=== PATIENT | female | born 1950 | race Caucasian/White ===

== ENCOUNTER 2019-09-20 10:32 | Inpatient (IN) | payer OTHER ==
[2019-09-20 11:23] LABS: Absolute Lymphocytes (CBC) 0.4 K/uL (0.7-4.9); Basophils % 0.4 % (0-1.3); Hematocrit 38.1 % (36.0-45.0); Lymphocytes % 13.6 % (15.3-44.8); MPV 9.9 fL (7.6-11.3); RBC Red Blood Cell Count 3.53 M/uL (3.86-4.86)
[2019-09-20 11:24] LABS: Protime INR 1.05
--- NOTE | 2019-09-20 11:33 | RAD REPORT ---
EXAM DESCRIPTION: CT - Head Brain Wo Cont - 09/20/2019 11:17 am CLINICAL HISTORY: tremor;Weakness COMPARISON: None TECHNIQUE: Computed axial tomography of the head was obtained. IV contrast was not requested. All CT scans are performed using dose optimization technique as appropriate and may include automated exposure control or mA/KV adjustment according to patient size. FINDINGS: An intracranial bleed is not seen . The ventricles are normal in caliber. No extra-axial fluid collection is noted. Fluid within the sinuses/ mastoids is not seen. IMPRESSION: No acute intracranial abnormality is seen. If patient's symptoms persist MRI of the bra in would be recommended.
[2019-09-20 11:46] LABS: ALT/SGPT 19 U/L (12-78); AST/SGOT 24 U/L (15-37); Albumin 3.1 g/dL (3.4-5.0); Alkaline Phosphatase 150 U/L (45-117); BUN Blood Urea Nitrogen 79 mg/dL (7-18); Bicarbonate 26 mmol/L (21-32); Bilirubin Direct 0.5 mg/dL (0-0.2); Glucose Level 199 mg/dL (74-106); Magnesium 2.7 mg/dL (1.8-2.4); NT PRO-BNP 1483 pg/mL (<125); Potassium 5.3 mmol/L (3.5-5.1); Protein, Total 7.7 g/dL (6.4-8.2); Sodium Level 142 mmol/L (136-145); T3 Free 0.97 pg/mL (2.18-3.98); Troponin (Emerg Dept Use Only) < 0.02 ng/mL (0.0-0.045)
--- NOTE | 2019-09-20 11:55 | RAD REPORT ---
EXAM DESCRIPTION: RAD - Chest Single View - 09/20/2019 11:29 am CLINICAL HISTORY: Weakness, shortness of breath COMPARISON: October 2017 TECHNIQUE: AP portable chest image was obtained 1121 hours . FINDINGS: Lungs are clear. Heart and vasculature are normal. No measurable pleural effusion and no p neumothorax. No acute bone finding. Degenerative change and old fracture remodeling changes to the pr oximal right humerus noted. No acute aortic findings suspected. IMPRESSION: No acute cardiopulmonary process. No suspicious change comparison.
[2019-09-20] MEDS ORDERED: NA CHLORIDE 0.9% 1,000 ML ONE (11:57)
[2019-09-20 12:21] LABS: Urine Blood TRACE (NEG); Urine Glucose NEGATIVE (NEG); Urine Protein NEGATIVE (NEG); Urine Specific Gravity 1.015 (1.005-1.030); Urine pH 5.5 (5.0-7.0)
--- NOTE | 2019-09-20 12:46 | EKG ---
Test Date: 2019-09-20 Test Time: 10:40:25 Bufferer: NAHEED MEASUREMENT RESULTS: Intervals: Rate: 85 TX: 156 QRSD: 82 QT: 368 QTc: 437 [place]: P: 27 TX: 156 QRS: -12 T: 107 INTERPRETIVE STATEMENTS: Normal sinus rhythm Cannot rule out Anterior infarct, age undetermined Abnormal ECG Compared to ECG 11/01/2017 14:07:46 No significant changes Electronically Signed On 09-20-19 12:45:37 WIRE REPAIRER by Torin Lizama
[2019-09-20 12:47] LABS: Anisocytosis 1+; Blood Morphology Comment NOT SEEN (NOT SEEN); Platelet Estimate DECR; Urine White Blood Cell Casts OK
[2019-09-20 12:48] LABS: Macrocytosis 1+
[2019-09-20] MEDS ORDERED: ALBUTEROL 2.5 MG/3 ML NEB SOL ONE (12:51)
[2019-09-20] MEDS ORDERED: INSULIN -REGULAR HUMAN 50 UNIT/0.5 ML ML ONE (12:51)
[2019-09-20] MEDS ORDERED: SOD POLYSTYREN SUL 15 GM/60 ML UCUP ONE (12:51)
[2019-09-20] MEDS ORDERED: D50W 25 GM/50 ML SYRINGE/VIAL IV ONE (12:52)
[2019-09-20 14:07] LABS: Urine Bacteria 20-50 /HPF (<20); Urine Culture Reflex Order REFLEXED; Urine RBC <5 /HPF (NONE SEEN)
[2019-09-20] MEDS ORDERED: CEFTRIAXONE/SWI 1gm 1 GM/10 ML SYR ONE (14:21)
[2019-09-20] MEDS ORDERED: NA CHLORIDE 0.9% 500 ML ONE (14:37)
--- NOTE | 2019-09-20 14:56 | ER ---
Nurse's Notes [facility] Name: Sofie Kinney Age: 68 yrs Sex: Female : 1950 Arrival Date: 09/20/2019 Time: 10:36 Bed 14 Private MD: Diagnosis: Urinary tract infection, site not specified;Hypotension;Weakness-general Presentation: 09/20 10:37 Presenting complaint: EMS states: general body weakness for couple weeks now but has ca1 been progressively worse. About a month ago pt is able to walk around. Pt also has persistent tremors on both upper extremities. Tremors started over a week ago but would come and go. For the last 2 days it has gotten worse. Pt's has recently been diagnosed with liver Cirrhosis and swelling on both lower and upper extremities are normal according to the family and pt is taking diuretics for it. Pt also had a back surgery about 1.5 months ago for a compression injury. Transition of care: patient was not received from another setting of care. Onset of symptoms was September 20, 2019. Risk Assessment: Do you want to hurt yourself or someone else? Patient reports no desire to harm self or others. Initial Sepsis Screen: Does the patient meet any 2 criteria? No. Patient's initial sepsis screen is negative. Does the patient have a suspected source of infection? No. Patient's initial sepsis screen is negative. Care prior to arrival: Glucose check: 160. 10:37 Method Of Arrival: EMS: [facility] ca1 10:37 Acuity: ROBERT 3 ca1 Historical: - Allergies: 10:45 PENICILLINS; ca1 - PMHx: 10:45 Anemia; Hypertension; Thyroid problem; Diabetes - NIDDM; ca1 - PSHx: 10:45 Back Surgery; Knee Surgery (R); Hysterectomy; ca1 - Immunization history:: Adult Immunizations up to date. - Social history:: Smoking status: Patient/guardian denies using tobacco. - Ebola Screening: : Patient negative for fever greater than or equal to 101.5 degrees Fahrenheit, and additional compatible Ebola Virus Disease symptoms Patient denies exposure to infectious person Patient denies travel to an Ebola-affected area in the 21 days before illness onset No symptoms or risks identified at this time. Screenin:46 Abuse screen: Denies threats or abuse. Denies injuries from another. Nutritional ca1 screening: No deficits noted. Tuberculosis screening: No symptoms or risk factors identified. Fall Risk IV access (20 points). Ambulatory Aid- None/Bed Rest/Nurse Assist (0 pts). Gait- Impaired (20 pts.). Total Juarez Fall Scale indicates High Risk Score (45 or more points). Fall prevention measures have been instituted. Side Rails Up X 2 As available patient and family educated on Fall Prevention Program and Strategies. Assessment: 10:46 General: Appears in no apparent distress. uncomfortable, ill, obese, unkempt, Behavior ca1 is calm, cooperative, appropriate for age. General: Reports fatigue for >3 days. Pain: Denies pain. Neuro: Level of Consciousness is awake, alert, obeys commands, Oriented to person, place, time, situation, Appropriate for age Institute Scientist are equal bilaterally Moves all extremities. Speech is normal, Facial symmetry appears normal, Pupils are PERRLA, Intact. Cardiovascular: Heart tones S1 S2 present Capillary refill < 3 seconds Patient's skin is warm and dry. Rhythm is sinus rhythm. Respiratory: Airway is patent Respiratory effort is even, unlabored, Respiratory pattern is regular, symmetrical, Breath sounds are clear bilaterally. GI: Abdomen is round non-distended, Bowel sounds present X 4 quads. Abd is soft and non tender X 4 quads. : No deficits noted. No signs and/or symptoms were reported regarding the genitourinary system. EENT: No deficits noted. No signs and/or symptoms were reported regarding the EENT system. Derm: Skin is intact, is healthy with good turgor, Skin is pink, warm \T\ dry. Musculoskeletal: Circulation, motion, and sensation intact. Capillary refill < 3 seconds, Range of motion: intact in all extremities, Swelling present in right arm, left arm, right leg and left leg. 11:32 Reassessment: Patient appears in no apparent distress at this time. Patient and/or ca1 family updated on plan of care and expected duration. Pain level reassessed. Patient is alert, oriented x 3, equal unlabored respirations, skin warm/dry/pink. 11:51 Reassessment: BP lowered. Documented and notified provider. ca1 12:04 Reassessment: Daughter contact number is [phone]. Will leave for a while and be ca1 back right away. 12:31 Reassessment: Patient appears in no apparent distress at this time. No changes from ca1 previously documented assessment. Patient is alert, oriented x 3, equal unlabored respirations, skin warm/dry/pink. 13:25 Reassessment: Patient appears in no apparent distress at this time. Patient and/or ca1 family updated on plan of care and expected duration. Pain level reassessed. Patient is alert, oriented x 3, equal unlabored respirations, skin warm/dry/pink. 14:17 Reassessment: Patient appears in no apparent distress at this time. Patient and/or ca1 family updated on plan of care and expected duration. Pain level reassessed. Patient is alert, oriented x 3, equal unlabored respirations, skin warm/dry/pink. Still no BM. SONIA Penaloza at bedside to discuss test results and pt being admitted. 15:24 Reassessment: Patient appears in no apparent distress at this time. Patient and/or ca1 family updated on plan of care and expected duration. Pain level reassessed. Patient is alert, oriented x 3, equal unlabored respirations, skin warm/dry/pink. 16:28 Reassessment: Patient appears in no apparent distress at this time. Patient is alert, ca1 oriented x 3, equal unlabored respirations, skin warm/dry/pink. Orders and room assignment pending. 16:45 Reassessment: Dr. Mackenzie at bedside. [facility] 17:26 Reassessment: Patient appears in no apparent distress at this time. Patient and/or ca1 family updated on plan of care and expected duration. Pain level reassessed. Patient is alert, oriented x 3, equal unlabored respirations, skin warm/dry/pink. Dinner served. Pt tolerated well. 18:09 Reassessment: Called for report. CN said nurse will call back once settled with the ca1 other admission that she just got. 18:10 Reassessment: Patient appears in no apparent distress at this time. Patient is alert, ca1 oriented x 3, equal unlabored respirations, skin warm/dry/pink. 19:15 Reassessment: Patient appears in no apparent distress at this time. Patient and/or wh family updated on plan of care and expected duration. Pain level reassessed. Patient is alert, oriented x 3, equal unlabored respirations, skin warm/dry/pink. 19:41 Reassessment: Report called to SHARRI Longo. 19:50 Reassessment: Pt cleaned and linen changed. jb4 20:15 Reassessment: Pt cleaned and linen changed. jb4 20:23 Reassessment: Patient appears in no apparent distress at this time. Patient and/or jb4 family updated on plan of care and expected duration. Pain level reassessed. Patient is alert, oriented x 3, equal unlabored respirations, skin warm/dry/pink. Vital Signs: 10:45 BP 101 / 76; Pulse 88; Resp 18 S; Temp 98.1(O); Pulse Ox 99% on R/A; Weight 90.72 kg ca1 (R); Height 5 ft. 3 in. (160.02 cm) (R); Pain 0/10; 11:49 BP 78 / 35 RA; Pulse 80; Resp 15; Pulse Ox 100% on R/A; ca1 11:49 BP 63 / 35 LA; ca1 12:31 BP 111 / 62; Pulse 76; Resp 14 S; Pulse Ox 98% on R/A; ca1 13:25 BP 103 / 57; Pulse 82; Resp 14 S; Pulse Ox 100% on R/A; ca1 14:17 BP 93 / 57; Pulse 79; Resp 13; Pulse Ox 100% on R/A; ca1 15:24 BP 109 / 60; Pulse 73; Resp 16 S; Pulse Ox 100% on R/A; ca1 16:28 BP 97 / 54; Pulse 78; Resp 14 S; Pulse Ox 100% on R/A; ca1 17:26 BP 92 / 61; Pulse 92; Resp 20; Pulse Ox 98% on R/A; ca1 18:09 BP 96 / 77; Pulse 88; Resp 17 S; Pulse Ox 100% on R/A; ca1 19:15 BP 108 / 64; Pulse 80; Resp 13; Pulse Ox 95% on R/A; wh 20:00 BP 116 / 88; Pulse 83; Resp 16; Pulse Ox 99% on R/A; jb4 10:45 Body Mass Index 35.43 (90.72 kg, 160.02 cm) ca1 ED Course: 10:36 Patient arrived in ED. ca1 10:37 Tim Ortega PA is PHCP. cp 10:37 Chico Mina MD is Attending Physician. cp 10:43 Triage completed. ca1 10:45 Arm band placed on right wrist. EKG completed in triage. Results shown to MD. ca1 10:46 Patient has correct armband on for positive identification. Placed in gown. Bed in low ca1 position. Call light in reach. Side rails up X2. threat monitoring analyst on. Pulse ox on. NIBP on. Warm blanket given. 10:46 No provider procedures requiring assistance completed. ca1 10:59 Inserted saline lock: 22 gauge in right antecubital area, using aseptic technique. ca1 forearm, using aseptic technique. Blood collected. 10:59 Initial lab(s) drawn, by me, sent to lab. First set of blood cultures drawn by me. ca1 11:03 Pam Ferreira, RN is Primary Nurse. ca1 11:09 EKG done, by animal care technician. reviewed by Chico Mina MD. at1 11:17 CT Head Brain wo Cont In Process Unspecified. EDMS 11:[address] via stretcher. ca1 11:30 XRAY Chest (1 view) In Process Unspecified. EDMS 11:53 Straight cath inserted, using sterile technique, 16 Fr. Specimen obtained. 600cc. 5 11:54 Urine Microscopic Only Sent. 5 11:54 Urine collected: straight cath specimen, cloudy, Amount Returned: 600mL. 5 13:02 Second set of blood cultures drawn by lab staff. ca1 14:54 Ahsan Mackenzie is Hospitalizing Provider. cp 15:40 Patient admitted, IV remains in place. ca1 Administered Medications: 11:58 Drug: NS 0.9% 1000 ml Route: IV; Rate: 1 bolus; Site: right forearm; ca1 13:00 Follow up: Response: No adverse reaction; IV Status: Completed infusion; IV Intake: ca1 1000ml 12:48 Drug: Albuterol 2.5 mg Route: Inhalation; ca1 12:50 Drug: D50W 25 ml Route: IVP; Site: right forearm; ca1 15:22 Follow up: Response: No adverse reaction ca1 12:55 Drug: Insulin Regular Human 10 units {Co-Signature: aj1 (Nathaly García RN).} Route: ca1 IVP; Site: right forearm; 15:22 Follow up: Response: No adverse reaction ca1 13:00 Drug: Kayexalate 30 grams Route: PO; ca1 15:23 Follow up: Response: No adverse reaction ca1 14:22 Drug: Rocephin 1 grams Route: IV; Rate: calculated rate; Site: right forearm; ca1 15:21 Follow up: Response: No adverse reaction; IV Status: Completed infusion ca1 14:39 Drug: NS 0.9% 500 ml Route: IV; Rate: bolus; Site: right forearm; ca1 15:22 Follow up: IV Status: Completed infusion; IV Intake: 500ml ca1 Intake: 13:00 IV: 1000ml; Total: 1000ml. ca1 15:22 IV: 500ml; Total: 1500ml. ca1 Outcome: 14:55 Decision to Hospitalize by Provider. cp 20:25 Admitted to Med/surg accompanied by nurse, via stretcher, room 205, with chart, Report jb4 called to SHARRI Longo 20:25 Condition: stable 20:25 Discharge instructions given to patient, Instructed on the need for admit, Demonstrated understanding of instructions. 20:26 Patient left the ED. jb4 Signatures: Dispatcher [employer] EDMS Whitney Apple, charge aide EKG Tat1 Tim Ortega PA PA cp Bryson, James, RN RN jb4 Nikia Hatfield [facility] [place] Moise Pereira Cheryl, RN RN ca1 Nathaly García RN aj1
--- NOTE | 2019-09-20 14:56 | EDPHYS ---
Physician Documentation [facility] Name: Sofie Kinney Age: 68 yrs Sex: Female : 1950 Arrival Date: 09/20/2019 Time: 10:36 Bed 14 Private MD: ED Physician Chico Mina HPI: 09/20 10:55 This 68 yrs old Female presents to ER via EMS with complaints of General cp Weakness. 10:55 The patient's problem is reported as weakness, that is generalized, tremor. Onset: The cp symptoms/episode began/occurred 2 day(s) ago. Duration: The episode is continuous. Associated signs and symptoms: Pertinent negatives: abdominal pain, chest pain, diaphoresis, fever. Patient's baseline: Neuro: alert and fully oriented, Motor: no deficits, Ambulation: walks with assist only, uses cane, Speech: normal. Historical: - Allergies: 10:45 PENICILLINS; ca1 - PMHx: 10:45 Anemia; Hypertension; Thyroid problem; Diabetes - NIDDM; ca1 - PSHx: 10:45 Back Surgery; Knee Surgery (R); Hysterectomy; ca1 - Immunization history:: Adult Immunizations up to date. - Social history:: Smoking status: Patient/guardian denies using tobacco. - Ebola Screening: : Patient negative for fever greater than or equal to 101.5 degrees Fahrenheit, and additional compatible Ebola Virus Disease symptoms Patient denies exposure to infectious person Patient denies travel to an Ebola-affected area in the 21 days before illness onset No symptoms or risks identified at this time. ROS: 11:00 Constitutional: Negative for body aches, chills, fever, poor PO intake. cp 11:00 Eyes: Negative for injury, pain, redness, and discharge. cp 11:00 ENT: Negative for drainage from ear(s), ear pain, sore throat, difficulty swallowing, difficulty handling secretions. 11:00 Cardiovascular: Negative for chest pain. 11:00 Respiratory: Negative for cough, shortness of breath, wheezing. 11:00 Abdomen/GI: Negative for abdominal pain, nausea, vomiting, and diarrhea, constipation, black/tarry stool, rectal bleeding. 11:00 Skin: Negative for cellulitis, rash. 11:00 Neuro: Positive for weakness, tremor, Negative for headache, syncope. 11:00 All other systems are negative. Exam: 10:44 ECG was reviewed by the Attending Physician. cp 11:05 Constitutional: The patient appears in no acute distress, alert, awake, cp non-diaphoretic, non-toxic, well developed, well nourished. 11:05 Head/Face: Normocephalic, atraumatic. Eyes: Pupils equal round and reactive to light, cp extra-ocular motions intact. Lids and lashes normal. Conjunctiva and sclera are non-icteric and not injected. Cornea within normal limits. Periorbital areas with no swelling, redness, or edema. ENT: Nares patent. No nasal discharge, no septal abnormalities noted. Tympanic membranes are normal and external auditory canals are clear. Oropharynx with no redness, swelling, or masses, exudates, or evidence of obstruction, uvula midline. Mucous membranes moist. Neck: Trachea midline, no thyromegaly or masses palpated, and no cervical lymphadenopathy. Supple, full range of motion without nuchal rigidity, or vertebral point tenderness. No Meningismus. Chest/axilla: Normal chest wall appearance and motion. Nontender with no deformity. No lesions are appreciated. 11:05 Cardiovascular: Rate: normal, Rhythm: regular, Edema: ankle edema, that is mild, JVD: is not appreciated. 11:05 Respiratory: the patient does not display signs of respiratory distress, Respirations: normal, no use of accessory muscles, no retractions, no splinting, no tachypnea, labored breathing, is not present, Breath sounds: are clear throughout, no decreased breath sounds, no stridor, no wheezing. 11:05 Abdomen/GI: Inspection: abdomen appears normal, Bowel sounds: active, all quadrants, Palpation: abdomen is soft and non-tender, in all quadrants. 11:05 Skin: no rash present. 11:05 Neuro: Orientation: to person, place \T\ time. Mentation: able to follow commands, slow to respond, Cerebellar function: Romberg testing is negative, normal finger to nose testing, Motor: moves all fours, general weakness without focal deficits, Sensation: no obvious gross deficits, Gait: not tested. 11:57 Radiologist reports: no acute findings cp Vital Signs: 10:45 BP 101 / 76; Pulse 88; Resp 18 S; Temp 98.1(O); Pulse Ox 99% on R/A; Weight 90.72 kg ca1 (R); Height 5 ft. 3 in. (160.02 cm) (R); Pain 0/10; 11:49 BP 78 / 35 RA; Pulse 80; Resp 15; Pulse Ox 100% on R/A; ca1 11:49 BP 63 / 35 LA; ca1 12:31 BP 111 / 62; Pulse 76; Resp 14 S; Pulse Ox 98% on R/A; ca1 13:25 BP 103 / 57; Pulse 82; Resp 14 S; Pulse Ox 100% on R/A; ca1 14:17 BP 93 / 57; Pulse 79; Resp 13; Pulse Ox 100% on R/A; ca1 15:24 BP 109 / 60; Pulse 73; Resp 16 S; Pulse Ox 100% on R/A; ca1 16:28 BP 97 / 54; Pulse 78; Resp 14 S; Pulse Ox 100% on R/A; ca1 17:26 BP 92 / 61; Pulse 92; Resp 20; Pulse Ox 98% on R/A; ca1 18:09 BP 96 / 77; Pulse 88; Resp 17 S; Pulse Ox 100% on R/A; ca1 19:15 BP 108 / 64; Pulse 80; Resp 13; Pulse Ox 95% on R/A; wh 20:00 BP 116 / 88; Pulse 83; Resp 16; Pulse Ox 99% on R/A; jb4 10:45 Body Mass Index 35.43 (90.72 kg, 160.02 cm) ca1 MDM: 10:39 Patient medically screened. cp 11:00 Differential diagnosis: CVA, TIA, Parkinson disease, metabolic disorder, drug effects. cp 14:31 Physician consultation: Ahsan Mackenzie was called at 14:32, was contacted at 14:32, cp regarding admission, to the telemetry unit. patient's condition. 14:35 Data reviewed: vital signs, nurses notes, lab test result(s), EKG, radiologic studies, cp CT scan, plain films. 14:35 Test interpretation: by ED physician or midlevel provider: ECG, plain radiologic cp studies. 09/20 10:41 Order name: Basic Metabolic Panel; Complete Time: 12:21 cp 09/20 12:42 Interpretation: Normal except: K 5.3; CL 111; GLUC 199; BUN 79; CRE 2.09; GFR 24; CA cp 8.2. 09/20 10:41 Order name: CBC with Diff; Complete Time: 13:06 09/20 12:41 Interpretation: Normal except: WBC 3.1; RBC 3.53; MCV 108.1; MCH 37.2; PLT 62; ELSY% cp 77.6; LYM% 13.6; LYMA 0.4. 09/20 10:41 Order name: LFT's; Complete Time: 12:21 09/20 13:06 Interpretation: Normal except: ALK 150; BILID 0.5; ALB 3.1; GLOB 4.6; A/G 0.7. 09/20 10:41 Order name: Magnesium; Complete Time: 12:21 09/20 10:41 Order name: NT PRO-BNP; Complete Time: 12:21 09/20 10:41 Order name: PT-INR; Complete Time: 11:53 09/20 10:41 Order name: Troponin (emerg Dept Use Only); Complete Time: 12:21 09/20 11:56 Interpretation: TROPED < 0.02; Reviewed. 09/20 10:41 Order name: Urine Microscopic Only; Complete Time: 14:14 09/20 14:14 Interpretation: Normal except: UWBC >50; UBACT 20-50. 09/20 10:41 Order name: Blood Culture Adult (2) 09/20 10:41 Order name: Lactate; Complete Time: 11:53 09/20 10:41 Order name: Procalcitonin; Complete Time: 11:55 09/20 11:29 Order name: T3 Free; Complete Time: 12:21 EDTN 09/20 10:41 Order name: XRAY Chest (1 view); Complete Time: 12:21 09/20 10:41 Order name: EKG; Complete Time: 10:43 09/20 10:41 Order name: CT Head Brain wo Cont; Complete Time: 11:53 09/20 11:53 Interpretation: Report reviewed. 09/20 11:29 Order name: Thyroid Stimulating Hormone; Complete Time: 12:21 EDTN 09/20 11:56 Interpretation: Abnormal: TSH 14.100. 09/20 11:50 Order name: CBC Smear Scan; Complete Time: 13:06 EDTN 09/20 11:53 Order name: T4 Free; Complete Time: 12:21 EDMS 09/20 12:05 Order name: Urine Dipstick--Ancillary (enter results) bd 09/20 14:09 Order name: Urine Culture EDTN 09/20 15:45 Order name: Potassium cp 09/20 10:41 Order name: Cardiac monitoring; Complete Time: 10:49 cp 09/20 10:41 Order name: EKG - Nurse/Tech; Complete Time: 10:49 cp 09/20 10:41 Order name: IV Saline Lock; Complete Time: 11:04 cp 09/20 10:41 Order name: Labs collected and sent; Complete Time: 11:04 cp 09/20 10:41 Order name: O2 Per Protocol; Complete Time: 10:49 cp 09/20 10:41 Order name: O2 Sat Monitoring; Complete Time: 10:49 cp 09/20 10:41 Order name: Cath; Complete Time: 11:48 cp 09/20 10:41 Order name: Urine Dipstick-Ancillary (obtain specimen); Complete Time: 11:48 cp 09/20 15:31 Order name: Diet Ada 2000 Ravi; Complete Time: 15:32 ca1 EC:44 Rate is 85 beats/min. Rhythm is regular. WV interval is normal. QRS interval is normal. cp QT interval is normal. Interpreted by me. Reviewed by me. Administered Medications: 11:58 Drug: NS 0.9% 1000 ml Route: IV; Rate: 1 bolus; Site: right forearm; ca1 13:00 Follow up: Response: No adverse reaction; IV Status: Completed infusion; IV Intake: ca1 1000ml 12:48 Drug: Albuterol 2.5 mg Route: Inhalation; ca1 12:50 Drug: D50W 25 ml Route: IVP; Site: right forearm; ca1 15:22 Follow up: Response: No adverse reaction ca1 12:55 Drug: Insulin Regular Human 10 units {Co-Signature: aj1 (Nathaly García RN).} Route: ca1 IVP; Site: right forearm; 15:22 Follow up: Response: No adverse reaction ca1 13:00 Drug: Kayexalate 30 grams Route: PO; ca1 15:23 Follow up: Response: No adverse reaction ca1 14:22 Drug: Rocephin 1 grams Route: IV; Rate: calculated rate; Site: right forearm; ca1 15:21 Follow up: Response: No adverse reaction; IV Status: Completed infusion ca1 14:39 Drug: NS 0.9% 500 ml Route: IV; Rate: bolus; Site: right forearm; ca1 15:22 Follow up: IV Status: Completed infusion; IV Intake: 500ml ca1 Disposition: 09/21 08:17 Co-signature as Attending Physician, Chico Mina MD I agree with the assessment and kdr plan of care. Disposition: 09/20/19 14:55 Hospitalization ordered by Ahsan Mackenzie for Inpatient Admission. Preliminary diagnosis are Urinary tract infection, site not specified, Hypotension, Weakness - general. - Bed requested for Telemetry/MedSurg (Inpatient). - Status is Inpatient Admission. jb4 - Condition is Stable. - Problem is new. - Symptoms have improved. UTI on Admission? Yes Signatures: Dispatcher [employer] EDMS Wendi Esquivel Kevin, MD MD kdr Tim Ortega PA PA cp Bryson, James, RN RN jb4 Pam Ferreira RN RN ca1 Nathaly García RN aj1 Corrections: (The following items were deleted from the chart) 09/20 11:30 10:59 THYROID STIMULAT HORMONE+C.LAB.BRZ ordered. EDMS EDMS 11:30 10:59 T3 FREE+C.LAB.BRZ ordered. EDMS EDMS 12:39 12:41 Normal except: K 5.3; CL 111; GLUC 199; BUN 79; CRE 2.09; GFR 24. cp cp 18:05 14:55 Hospitalization Ordered by Ahsan Mackenzie for Inpatient Admission. Preliminary bd diagnosis is Urinary tract infection, site not specified; Hypotension; Weakness - general. Bed requested for Telemetry/MedSurg (Inpatient). Status is Inpatient Admission. Condition is Stable. Problem is new. Symptoms have improved. UTI on Admission? Yes. cp 20:26 18:05 09/20/2019 14:55 Hospitalization Ordered by Ahsan Mackenzie for Inpatient jb4 Admission. Preliminary diagnosis is Urinary tract infection, site not specified; Hypotension; Weakness - general. Bed requested for Telemetry/MedSurg (Inpatient). Status is Inpatient Admission. Condition is Stable. Problem is new. Symptoms have improved. UTI on Admission? Yes. bd
--- NOTE | 2019-09-20 17:03 | P.HP ---
Certification for Inpatient Patient admitted to: Inpatient With expected LOS: >2 Midnights Practitioner: I am a practitioner with admitting privileges, knowledge of patient current condition, hospital course, and medical plan of care. Services: Services provided to patient in accordance with Admission requirements found in Title 42 Section 412.3 of the Code of Federal Regulations Patient History Date of Service: 09/24/19 Reason for admission: Generalized weakness History of Present Illness: 68 year old woman with a history of these mellitus type 2, rheumatoid arthritis , liver cirrhosis, prior history of ascites status post paracentesis, was brought to the emergency department due to one-month history of generalized weakness, poor oral intake and tremors. According to the patient, her daughter brought her to the emergency department because she was not acting right. Denied any fever, she endorsed dysuria but denies increased urinary frequency. Patient is on oral Lasix maintenance therapy for anasarca. In the ED, patient noted to have urinary tract infection per UA. Blood work also suggested acute renal failure and mild hyperkalemia. Chest x-ray is negative for acute disease. Patient is admitted for further management. Allergies Penicillins Allergy (Verified 11/01/17 21:15) Hives Home Medications: Cyclobenzaprine [Flexeril] 5 mg PO DAILY 09/20/19 Furosemide [Lasix] 40 mg PO DAILY 09/20/19 Gabapentin 300 mg PO BID 09/20/19 Indomethacin 50 mg PO BID 09/20/19 Omeprazole [Prilosec] 40 mg PO DAILY 09/20/19 Oxybutynin Chloride [Ditropan] 5 mg PO TID 09/20/19 Spironolactone [Aldactone] 50 mg PO DAILY 09/20/19 Alendronate [Fosamax] 10 mg PO DAILY 09/21/19 Allopurinol 100 mg PO BID 09/21/19 Cranberry 1,500 mg PO DAILY 09/21/19 Folic Acid 1 mg PO DAILY 09/21/19 Iron 65 mg PO DAILY 09/21/19 Levothyroxine [Synthroid] 125 mcg PO [id number] 09/21/19 Metformin HCl [Glucophage] 500 mg PO BIDWM 09/21/19 Propranolol [Inderal] 40 mg PO BID 09/21/19 Rifaximin [Xifaxan] 550 mg PO BID 09/21/19 - Past Medical/Surgical History Diabetic: Yes -: HTN -: DM -: Hypothyroidism -: RA -: OA -: R Knee Replace -: Hysterectomy - Family History Father -: Hypertension, Other (see notes) Notes: RA Mother -: Diabetes - Social History Alcohol use: No CD- Drugs: No Caffeine use: No Review of Systems Other: General: No fever, no malaise, no unintentional weight loss. Eyes: No eye discharge, Respiratory: No cough, no shortness of breath. CVS: No chest pain, no palpitation, no lightheadedness. GI: No abdominal pain, no vomiting, no constipation, no diarrhea. Genitourinary: No incontinence, no hematuria. Musculoskeletal: No joint pains, or joint swelling, no gait instability. Neurology: No headache, no asymmetric, weakness, no problem with swallowing. Except as documented, all other systems reviewed and negative. Physical Examination - Physical Exam General: In no apparent distress, Oriented x3, Other HEENT: Normocephalic, PERRLA, Mucous membr. moist/pink Neck: Supple, JVD not distended, No Thyromegaly Respiratory: Clear to auscultation bilaterally, Normal air movement Cardiovascular: No edema, Regular rate/rhythm, Normal S1 S2, No murmurs Capillary refill: <2 Seconds Gastrointestinal: Normal bowel sounds, Soft and benign, Non-distended, Other ( Obese abdomen) Musculoskeletal: No swelling, No erythema Integumentary: No rashes Neurological: Normal strength at 5/5 x4 extr, Cranial nerves 3-12 intact, Other (Psychomotor retardation) - Studies Laboratory Data (last 24 hrs) 09/20/19 16:04: Potassium 4.7 09/20/19 10:59: PT 12.4, INR 1.05 09/20/19 10:59: WBC 3.1 L, Hgb 13.1, Hct 38.1, Plt Count 62 L 09/20/19 10:59: Sodium 142, Potassium 5.3 H, BUN 79 H, Creatinine 2.09 H, Glucose 199 H, Magnesium 2.7 H, Total Bilirubin 1.0, AST 24, ALT 19, Alkaline Phosphatase 150 H Assessment and Plan - Problems (Diagnosis) (1) Acute cystitis without hematuria Current Visit: Yes Status: Acute (2) Acute renal failure superimposed on stage 3 chronic kidney disease Current Visit: Yes Status: Acute (3) Hyperkalemia Current Visit: Yes Status: Acute (4) Rheumatoid arthritis Current Visit: Yes Status: Acute (5) Hypothyroidism Current Visit: Yes Status: Acute - Plan Place patient under observation. Hydrate slowly with IV normal saline. Hold Lasix for now. Monitor closely for volume overload Encouraged oral intake and oral rehydration Will start IV Levaquin for UTI and follow urine culture Monitor renal function for improvement. Noted patient has soft blood pressure and on midodrine prn for hypotension. Continue home dose Synthroid. Continue home medications for rheumatoid arthritis. - Advance Directives Does patient have a Living Will: No Does patient have a Durable POA for Healthcare: No
[2019-09-20] MEDS ORDERED: ONDANSETRON 4 MG/2 ML VIAL IV PRN (19:41)
[2019-09-20] MEDS ORDERED: Levofloxacin500mg IV 500 MG/100 ML BAG IV SCH (19:41)
[2019-09-20] MEDS: INSULIN -REGULAR HUMAN 50 UNIT/0.5 ML ML SQ SCH (21:00)
[2019-09-20] MEDS: NA CHLORIDE 0.9% 1,000 ML IV SCH (22:31)
[2019-09-21 00:41] VITALS: BMI 38.9
[2019-09-21] MEDS ORDERED: NA CHLORIDE 0.9% 250 ML IV PRN ×3 (03:28→06:08)
[2019-09-21] MEDS: NA CHLORIDE 0.9% 1,000 ML IV SCH ×3 (03:55→17:52)
[2019-09-21 05:57] LABS: Bilirubin Total 1.3 mg/dL (0.2-1.0); Phosphorus 3.3 mg/dL (2.5-4.9); Potassium 4.8 mmol/L (3.5-5.1); Protein, Total 6.8 g/dL (6.4-8.2)
[2019-09-21 05:58] LABS: Albumin 2.6 g/dL (3.4-5.0); Magnesium 2.3 mg/dL (1.8-2.4)
[2019-09-21] MEDS ORDERED: PNEUMOCOCCAL VACCINE 0.5 ML IMVAC ONE (06:00)
[2019-09-21 06:28] LABS: Absolute Lymphocytes (CBC) 0.2 K/uL (0.7-4.9); Basophils % 0.1 % (0-1.3); Hematocrit 33.6 % (36.0-45.0); Lymphocytes % 3.1 % (15.3-44.8); Protime INR 1.15
[2019-09-21] MEDS: INSULIN -REGULAR HUMAN 50 UNIT/0.5 ML ML SQ SCH ×4 (07:30→21:00)
[2019-09-21] MEDS ORDERED: ALBUMIN HUMAN 25% 50 ML IV ONE (07:49)
[2019-09-21 08:11] LABS: Blood Morphology Comment NOTED (NOT SEEN); Macrocytosis 1+; Platelet Estimate DECR
--- NOTE | 2019-09-21 08:57 | RAD REPORT ---
EXAM DESCRIPTION: RAD - Chest Single View - 09/21/2019 8:49 am CLINICAL HISTORY: Pulmonary edema Chest pain. COMPARISON: Chest Single View dated 09/20/2019; Chest Single View dated 11/01/2017; ABDOMEN 1 VIEW KU B dated 04/16/2015; ABDOMEN 1 VIEW KUB dated 02/16/2014 FINDINGS: Portable technique limits examination quality. The lungs are grossly clear. The heart is normal in size. No displaced fractures. IMPRESSION: No acute intrathoracic process suspected.
--- NOTE | 2019-09-21 10:37 | P.PN ---
Subjective Date of Service: 09/21/19 Chief Complaint: Generalized weakness The patient noted to be drowsy, weak. She is easily arousable and and communicate meaningfully. Her blood pressure has been intermittently low with systolics as low as 80s. She denies any abdominal pain or chest pain. She has been afebrile. She was given multiple normal saline bolus overnight for low blood pressure. She denies increased shortness of breath. Physical Examination - Vital Signs Temperature: 97 F Blood Pressure: 88/42 Pulse: 97 Respirations: 32 Pulse Ox (%): 100 - Physical Exam General: In no apparent distress, Oriented x3 (When awake) HEENT: Mucous membr. moist/pink, Sclerae nonicteric Neck: Supple, JVD not distended Respiratory: Clear to auscultation bilaterally, Normal air movement Cardiovascular: No edema, Normal pulses, Other (Tachycardic) Capillary refill: <2 Seconds Gastrointestinal: Normal bowel sounds, Soft and benign, Other (Mildly distended) Musculoskeletal: No swelling, No erythema Integumentary: No rashes, No erythema Neurological: Normal speech, Other (Nonfocal) - Studies Laboratory Data (last 24 hrs) 09/21/19 06:07: PT 13.5 H, INR 1.15 09/21/19 06:07: WBC 5.7 D, Hgb 11.4 L, Hct 33.6 L, Plt Count 49 L* D 09/21/19 05:23: Sodium 145, Potassium 4.8, BUN 66 H, Creatinine 1.65 H, Glucose 116 H, Phosphorus 3.3, Magnesium 2.3, Total Bilirubin 1.3 H, AST 22, ALT 17, Alkaline Phosphatase 125 H 09/20/19 16:04: Potassium 4.7 09/20/19 10:59: PT 12.4, INR 1.05 09/20/19 10:59: WBC 3.1 L, Hgb 13.1, Hct 38.1, Plt Count 62 L 09/20/19 10:59: Sodium 142, Potassium 5.3 H, BUN 79 H, Creatinine 2.09 H, Glucose 199 H, Magnesium 2.7 H, Total Bilirubin 1.0, AST 24, ALT 19, Alkaline Phosphatase 150 H Assessment And Plan - Current Problems (Diagnosis) (1) Acute cystitis without hematuria Current Visit: Yes Status: Acute (2) Acute renal failure superimposed on stage 3 chronic kidney disease Current Visit: Yes Status: Acute (3) Hyperkalemia Current Visit: Yes Status: Acute (4) Rheumatoid arthritis Current Visit: Yes Status: Acute (5) Hypothyroidism Current Visit: Yes Status: Acute (6) Hypotension Current Visit: Yes Status: Acute - Plan Patient transferred to the ICU for close monitoring. Continue hydration with IV normal saline. Patient given IV albumin infusion today Continue to hold lasix. Resume midodrine p.r.n. Monitor closely for volume overload Continue IV Levaquin IV Levaquin for UTI and follow urine culture Continue home dose Synthroid. Continue home medications for rheumatoid arthritis. PT and OT when deemed more clinically stable.
--- NOTE | 2019-09-21 11:46 | ECHO ---
HEIGHT: 5 ft 3 in WEIGHT: 220 lb 0 oz DATE OF STUDY: 09/21/[address]: Farrukh Charles MD 2-DIMENSIONAL: YES M.MODE: YES DOPPLER: YES COLOR FLOW: YES TDS: NO PORTABLE: YES DEFINITY: NO BUBBLE STUDY: NO DIAGNOSIS: HYPOTENSION CARDIAC HISTORY: CATHERIZATION: NO SURGERY: NO PROSTHETIC VALVE: NO PACEMAKER: NO MEASUREMENTS (cm) DIASTOLIC (NORMALS) SYSTOLIC (NORMALS) IVSd 0.9 (0.6-1.2) LA Diam 2.9 (1.9-4.0) LVEF 68% LVIDd 4.6 (3.5-5.7) LVIDs 2.8 (2.0-3.5) %FS 38% LVPWd 0.9 (0.6-1.2) Ao Diam 2.5 (2.0-3.7) 2 DIMENSIONAL ASSESSMENT: RIGHT ATRIUM: NORMAL LEFT ATRIUM: NORMAL RIGHT VENTRICLE: NORMAL LEFT VENTRICLE: NORMAL TRICUSPID VALVE: NORMAL MITRAL VALVE: NORMAL PULMONIC VALVE: NORMAL AORTIC VALVE: NORMAL PERICARDIAL EFFUSION: NONE AORTIC ROOT: NORMAL LEFT VENTRICULAR WALL MOTION: NORMAL DOPPLER/COLOR FLOW: NORMAL COMMENTS: NORMAL 2D ECHOCARDIOGRAM ECHOCARDIOGRAM WITH DOPPLER. NO WALL MOTION ABNORMALITY. NO EFFUSION. TECHNOLOGIST: Guero SALMERON
[2019-09-21] MEDS: Levofloxacin 250mg IV 250 MG/50 ML BAG IV SCH (17:53)
[2019-09-21] MEDS ORDERED: MIDODRINE HCL 5 MG TABLET PO PRN (18:45)
[2019-09-22] MEDS: NA CHLORIDE 0.9% 1,000 ML IV SCH ×4 (02:21→17:19)
[2019-09-22] MEDS: INSULIN -REGULAR HUMAN 50 UNIT/0.5 ML ML SQ SCH ×4 (07:30→21:00)
[2019-09-22 08:37] LABS: Absolute Lymphocytes (CBC) 0.4 K/uL (0.7-4.9); Basophils % 0.4 % (0-1.3); Hematocrit 32.1 % (36.0-45.0); MPV 9.8 fL (7.6-11.3); RBC Red Blood Cell Count 2.92 M/uL (3.86-4.86)
[2019-09-22 09:06] LABS: Magnesium 2.2 mg/dL (1.8-2.4); Phosphorus 2.9 mg/dL (2.5-4.9); Potassium 4.2 mmol/L (3.5-5.1)
[2019-09-22] MEDS: CALCIUM GLUC 10% INJ 4.65 MEQ in NA CHLORIDE 0.9% 100 ML IV SCH ×2 (09:39→11:15)
--- NOTE | 2019-09-22 12:05 | P.PN ---
Subjective Date of Service: 09/22/19 Chief Complaint: Generalized weakness Patient is doing much better today. She is more awake and interactive. Her blood pressure has been stable, systolic in the 100s. She denies any abdominal pain or chest pain. She has been afebrile. She denies increased shortness of breath. Physical Examination - Vital Signs Temperature: 98.5 F Blood Pressure: 107/53 Pulse: 90 Respirations: 28 Pulse Ox (%): 100 - Physical Exam General: Alert, In no apparent distress, Oriented x3 HEENT: Mucous membr. moist/pink Neck: Supple, JVD not distended Respiratory: Clear to auscultation bilaterally, Normal air movement Cardiovascular: No edema, Regular rate/rhythm, Normal S1 S2 Gastrointestinal: Normal bowel sounds, Soft and benign, Non-distended, No tenderness Musculoskeletal: No swelling, No erythema Integumentary: No rashes Neurological: Normal speech, Normal strength at 5/5 x4 extr - Studies Microbiology Data (last 24 hrs): 09/20/19 11:50 Clean Catch Urine [place] Count - Final >100,000 CFU/ML. 09/20/19 11:50 Clean Catch Urine - Final Klebsiella Pneumoniae Assessment And Plan - Current Problems (Diagnosis) (1) Acute cystitis without hematuria Current Visit: Yes Status: Acute (2) Acute renal failure superimposed on stage 3 chronic kidney disease Current Visit: Yes Status: Acute (3) Hyperkalemia Current Visit: Yes Status: Acute (4) Rheumatoid arthritis Current Visit: Yes Status: Acute (5) Hypothyroidism Current Visit: Yes Status: Acute (6) Hypotension Current Visit: Yes Status: Acute - Plan Patient transferred to the ICU for close monitoring. Continue slow IV hydration with normal saline. Continue to hold lasix. On midodrine p.r.n. Monitor closely for volume overload Should complete 3 days of antibiotics for UTI today. Replace calcium with IV calcium gluconate Continue home dose Synthroid. Continue home medications for rheumatoid arthritis. Resume PT and OT
[2019-09-22 13:21] LABS: Magnesium 2.2 mg/dL (1.8-2.4); Phosphorus 2.4 mg/dL (2.5-4.9)
[2019-09-22] MEDS: POTASS/SODIUM PHOSPHATE 1 PKT POWD.PACK PO SCH ×3 (15:26→17:13)
[2019-09-22] MEDS: Levofloxacin 250mg IV 250 MG/50 ML BAG IV SCH (17:14)
[2019-09-22] MEDS: JUVEN PACKET PO SCH (22:05)
[2019-09-23] MEDS: NA CHLORIDE 0.9% 1,000 ML IV SCH ×2 (05:38→08:00)
[2019-09-23 05:51] LABS: Absolute Lymphocytes (CBC) 0.4 K/uL (0.7-4.9); Basophils % 0.5 % (0-1.3); Hematocrit 30.6 % (36.0-45.0); Lymphocytes % 16.4 % (15.3-44.8); MPV 9.3 fL (7.6-11.3); RBC Red Blood Cell Count 2.82 M/uL (3.86-4.86)
[2019-09-23 06:01] LABS: Potassium 4.2 mmol/L (3.5-5.1)
[2019-09-23] MEDS: INSULIN -REGULAR HUMAN 50 UNIT/0.5 ML ML SQ SCH ×4 (07:30→20:44)
[2019-09-23] MEDS: JUVEN PACKET PO SCH ×2 (10:24→20:05)
--- NOTE | 2019-09-23 13:51 | P.PN ---
Subjective Date of Service: 09/23/19 Chief Complaint: Generalized weakness Patient denies any complaints today. Her blood pressure has been stable, systolic in the 100s. She denies any abdominal pain or chest pain. She has been afebrile. She was to go home Physical therapy worked with her and she needed moderate assistance for transfer. Noted she was fatigued with standing. Physical Examination - Vital Signs Temperature: 98.3 F Blood Pressure: 102/61 Pulse: 96 Respirations: 18 Pulse Ox (%): 95 - Physical Exam General: Alert, In no apparent distress, Oriented x3 HEENT: Mucous membr. moist/pink Neck: Supple, JVD not distended Respiratory: Clear to auscultation bilaterally, Normal air movement Cardiovascular: Regular rate/rhythm, Normal S1 S2, Edema (Bilateral lower extremities) Gastrointestinal: Normal bowel sounds, Soft and benign, No tenderness Integumentary: No rashes - Studies Microbiology Data (last 24 hrs): 09/20/19 11:50 Clean Catch Urine [place] Count - Final >100,000 CFU/ML. 09/20/19 11:50 Clean Catch Urine - Final Klebsiella Pneumoniae Assessment And Plan - Current Problems (Diagnosis) (1) Acute cystitis without hematuria Current Visit: Yes Status: Acute (2) Acute renal failure superimposed on stage 3 chronic kidney disease Current Visit: Yes Status: Acute (3) Hyperkalemia Current Visit: Yes Status: Acute (4) Rheumatoid arthritis Current Visit: Yes Status: Acute (5) Hypothyroidism Current Visit: Yes Status: Acute (6) Hypotension Current Visit: Yes Status: Acute - Plan Renal function has improved Continue to hold lasix. Discontinue IV fluid. Oral hydration On midodrine p.r.n. Patient completed 3 days of antibiotics for UTI. Discontinue antibiotics. Monitor electrolytes and replete as needed. Resume Aldactone. Continue to hold propranolol due to soft blood pressure. Continue home dose Synthroid. Continue home medications for rheumatoid arthritis. Resume PT and OT. Patient is declining skilled rehab placement. She will need home health for physical therapy.
[2019-09-23] MEDS: OXYBUTYNIN CHLORIDE 5 MG TAB PO SCH ×2 (14:37→20:05)
[2019-09-23] MEDS ORDERED: MORPHINE 2 MG/ML SYR IV ONE (19:00)
[2019-09-23] MEDS: ALLOPURINOL 100 MG TAB PO SCH (20:05)
[2019-09-23] MEDS ORDERED: PROPRANOLOL HCL 40 MG TAB PO SCH (21:00)
[2019-09-23] MEDS ORDERED: Rifaximin 550 MG Tab PO SCH ×2 (21:00)
[2019-09-23] MEDS ORDERED: POLYETHYL GLY 3350 17 GM/DOSE PO ONE (21:00)
[2019-09-24 05:34] LABS: Absolute Lymphocytes (CBC) 0.5 K/uL (0.7-4.9); Basophils % 0.8 % (0-1.3); Hematocrit 31.6 % (36.0-45.0); Lymphocytes % 19.3 % (15.3-44.8); MPV 9.2 fL (7.6-11.3)
[2019-09-24 05:48] LABS: Phosphorus 2.9 mg/dL (2.5-4.9); Potassium 4.1 mmol/L (3.5-5.1)
[2019-09-24 06:20] LABS: Platelet Estimate DECR; Urine White Blood Cell Casts OK
[2019-09-24] MEDS: ALENDRONATE 10 MG TAB PO SCH (06:20)
[2019-09-24 06:21] LABS: Blood Morphology Comment NOTED (NOT SEEN); Macrocytosis 1+; Platelets, Giant PRESENT
[2019-09-24] MEDS: PANTOPRAZOLE 40MG TABLET PO SCH ×2 (06:21→08:21)
[2019-09-24] MEDS: LEVOTHYROXINE SOD 0.125 MG TAB PO SCH (06:21)
[2019-09-24] MEDS: INSULIN -REGULAR HUMAN 50 UNIT/0.5 ML ML SQ SCH ×4 (07:30→20:43)
[2019-09-24] MEDS: OXYBUTYNIN CHLORIDE 5 MG TAB PO SCH ×3 (08:20→20:42)
[2019-09-24] MEDS: SPIRONOLACTONE 25 MG TABLET PO SCH (08:20)
[2019-09-24] MEDS: ALLOPURINOL 100 MG TAB PO SCH ×2 (08:20→20:42)
[2019-09-24] MEDS: FOLIC ACID 1 MG TABLET PO SCH (08:21)
[2019-09-24] MEDS: IRON 65 MG PO SCH (08:21)
[2019-09-24] MEDS: JUVEN PACKET PO SCH ×2 (08:22→20:42)
[2019-09-24] MEDS ORDERED: HOME MED 1 EA UNK (Spironolactone [Aldactone] 50 MG) PO SCH (09:00)
[2019-09-24] MEDS ORDERED: HOME MED 1 EA UNK (Omeprazole [Prilosec] 40 MG) PO SCH (09:00)
--- NOTE | 2019-09-24 15:13 | P.PN ---
Subjective Date of Service: 09/24/19 Chief Complaint: Generalized weakness Subjective: No new changes, Doing well Patient denies any complaints today. Her blood pressure has been stable. She denies any abdominal pain or chest pain. She has been afebrile. She is also eating well. Physical Examination - Vital Signs Temperature: 97.2 F Blood Pressure: 111/63 Pulse: 87 Respirations: 20 Pulse Ox (%): 98 - Physical Exam General: Alert, In no apparent distress, Oriented x3 HEENT: Mucous membr. moist/pink Neck: Supple, JVD not distended Respiratory: Clear to auscultation bilaterally, Normal air movement Cardiovascular: No edema, Normal pulses, Regular rate/rhythm Gastrointestinal: Normal bowel sounds, Soft and benign, Non-distended, No tenderness Musculoskeletal: No swelling Integumentary: No rashes Neurological: Normal speech, Normal strength at 5/5 x4 extr Assessment And Plan - Current Problems (Diagnosis) (1) Acute cystitis without hematuria Current Visit: Yes Status: Acute (2) Acute renal failure superimposed on stage 3 chronic kidney disease Current Visit: Yes Status: Acute (3) Hyperkalemia Current Visit: Yes Status: Acute (4) Rheumatoid arthritis Current Visit: Yes Status: Acute (5) Hypothyroidism Current Visit: Yes Status: Acute (6) Hypotension Current Visit: Yes Status: Acute - Plan Renal function has improved Continue to hold lasix. Status post IV fluids. Oral hydration On midodrine p.r.n. Patient completed 3 days of antibiotics for UTI. Antibiotic discontinued Monitor electrolytes and replete as needed. Continue Aldactone. Holding propranolol due to soft blood pressure. Continue home dose Synthroid. Continue home medications for rheumatoid arthritis. Patient is declining skilled rehab placement. She will need home health for physical therapy. Home health for physical therapy to be arranged tomorrow and discharge home.
[2019-09-25 04:40] LABS: Hematocrit 32.4 % (36.0-45.0)
[2019-09-25 04:41] LABS: Absolute Lymphocytes (CBC) 0.5 K/uL (0.7-4.9); Basophils % 0.8 % (0-1.3); Lymphocytes % 19.4 % (15.3-44.8); MPV 9.4 fL (7.6-11.3)
[2019-09-25] MEDS: ALENDRONATE 10 MG TAB PO SCH (06:08)
[2019-09-25] MEDS: LEVOTHYROXINE SOD 0.125 MG TAB PO SCH (06:08)
[2019-09-25] MEDS: INSULIN -REGULAR HUMAN 50 UNIT/0.5 ML ML SQ SCH (07:30)
[2019-09-25 08:06] VITALS: O2SAT 94
[2019-09-25 08:19] VITALS: BP 101/54; TEMP 97.8
[2019-09-25] MEDS: FOLIC ACID 1 MG TABLET PO SCH (08:21)
[2019-09-25] MEDS: PANTOPRAZOLE 40MG TABLET PO SCH ×2 (08:21→08:24)
[2019-09-25] MEDS: OXYBUTYNIN CHLORIDE 5 MG TAB PO SCH (08:21)
[2019-09-25] MEDS: SPIRONOLACTONE 25 MG TABLET PO SCH (08:22)
[2019-09-25] MEDS: ALLOPURINOL 100 MG TAB PO SCH (08:22)
[2019-09-25] MEDS: JUVEN PACKET PO SCH (08:23)
[2019-09-25] MEDS: IRON 65 MG PO SCH (08:23)
[2019-09-25] MEDS ORDERED: FERROUS SULFATE 325 MG TAB PO SCH (09:00)
--- NOTE | 2019-09-26 05:32 | DS ---
Date of Discharge: 09/25/2019 Consultants: No consultants. Admitting Diagnoses: 1.Acute cystitis without hematuria. 2.Acute on chronic kidney injury, stage III. 3.Hyperkalemia. 4.Rheumatoid arthritis. 5.Hypothyroidism. Discharge Diagnoses: 1.Acute cystitis without hematuria secondary to Klebsiella. 2.Acute on chronic kidney injury stage III, creatinine improved. 3.Hyperkalemia, corrected. 4.Rheumatoid arthritis, stable. 5.Hypothyroidism. 6.Hypotension, on midodrine. 7.Obesity, BMI 39. 8.Liver cirrhosis without ascites or coma. 9.Thrombocytopenia, chronic, stable. 10.Diabetes mellitus type 2. Hospital Course: The patient is a 68-year-old female with past medical history of diabetes mellitus type 2, rheumatoid arthritis, liver cirrhosis, who comes into the hospital with generalized weakness. Patient was found to have UTI. She was started on IV antibiotics. Her cultures grew out Klebsiell a pneumonia. Her blood cultures were negative. She finished course of IV antibiotics in the hospita l and antibiotics were discontinued. Her white blood cell count remained stable. She was somewhat l eukopenic due to her liver disease. Also had some thrombocytopenia, remained stable. No active blee ding. Patient follows with Dr. Deshawn MARQUEZ as an outpatient. Patient overall did well, her medications were adjusted, her kidney function improved. Her hyperkalemia was corrected, calcium also improved. She was asymptomatic from her UTI. After treatment, did not have any further dysuria or urinary fr equency. Patient had an echocardiogram done, which showed EF of 68% with no wall motion abnormality or effusion. Patient's repeat chest x-ray showed clear lungs. The patient's mental status was stabl e. She was then requiring midodrine for her hypotension. Patient was initially recommended to go to assisted facility for placement, however the patient declined. Therefore, she was set up [facility] home health. Patient was then discharged with home health in a stable condition. Activity: As tolerated, fall precautions. Medications: As per medication reconciliation list. Followup: Follow up with primary care physician in 2-3 days. Patient needs to follow up with Dr Eleonora MARQUEZ in 2-4 weeks. Return to ER for worsening condition. Diet: Low-sodium, fluid-restricted diet, and diabetic diet. Patient's dose of Lasix and propranolol were decreased due to hypotension. Physical Examination: GENERAL: Awake, alert, and oriented x3. Elderly female, morbidly obese. CV: S1, S2. Respiratory: Moving air well bilaterally. Abdomen: Soft, mild distention. No tenderness. Positive bowel sounds. Extremities: No clubbing, cyanosis, or pedal edema. Neurologic: Nonfocal. Plan: Total time spent discharging the patient was 37 minutes. Patient was counseled regarding beltran sfer to SNF, however, did not want to go to assisted facility. She understands the risks incl uding fall, which could result in fractures, brain bleed, etc., and wants to go home with home health . /SCOTT Voice ID: [id number] Report ID: [id number]
== END 2019-09-25 11:30 | disposition home health service (06) | DRG 690 ==
LOC: ER 10:32 → ERHOLD 17:09 → 2ND 19:47 → 3RD-ICU 09-21 08:56 → OBSVTOIN 09-21 09:26 → 4TH 09-22 15:10
PROVIDERS: ADMIT Internal Medicine; ATTEND Internal Medicine
DX: N30.00 Acute cystitis without hematuria (principal); N17.9 Acute kidney failure, unspecified; B96.1 Klebsiella pneumoniae [K. pneumoniae] as the cause of diseases classified elsewhere; I12.9 Hypertensive chronic kidney disease with stage 1 through stage 4 chronic kidney disease, or unspecified chronic kidney disease; E11.22 Type 2 diabetes mellitus with diabetic chronic kidney disease; N18.3 Chronic kidney disease, stage 3 (moderate); E87.5 Hyperkalemia; M06.9 Rheumatoid arthritis, unspecified; E03.9 Hypothyroidism, unspecified; I95.9 Hypotension, unspecified; E66.9 Obesity, unspecified; Z68.39 Body mass index [BMI] 39.0-39.9, adult; K74.60 Unspecified cirrhosis of liver; L89.152 Pressure ulcer of sacral region, stage 2
CPT/HCPCS: 36415; 51702; 70450; 71045; 80048; 80053; 80076; 81003; 81015; 82947; 83605; 83735; 83880; 84100; 84132; 84145; 84439; 84443; 84481; 84484; 85025; 85610; 87040; 87077; 87086; 87088; 87186; 87205; 90670; 93005; 93306; 94760; 96361; 96365; 96375; 97110; 97112; 97116; 97161; 97530; 99285; G0378; J0610; J0696; J2270; J7030; J7040; P9047

== ENCOUNTER 2019-11-04 15:40 | Inpatient (IN) | payer OTHER ==
--- OUTSIDE RECORDS SUMMARY | 2019-11-04 15:43 | XMS REPORT ---
:1950 [facility] Address [address] [place] [address] Care Team Providers Name Role Phone Unavailable Unavailable Unavailable Payers Payer Name Policy Type Policy Number Effective Date Expiration Date Problems This patient has no known problems. Allergies, Adverse Reactions, Alerts Allergy Name Allergy Status Severity Reaction(s) Onset Inactive Treating Comments Type Date Date Clinician Penicillins DA Active MO 2019-10 00:00:0 0 Medications This patient has no known medications. Results Test Description Test Time Test Comments Text Results Atomic Results Result Comments GLUCOSE BEDSIDE TESTING 2019-11-02 16:51:00 Test Item Value Reference Range Comments GLUCOSE BEDSIDE TESTING (test code=GLUBED) 140 mg/dL 70-110 GLUCOSE BEDSIDE [id number] 12:31:00 Test Item Value Reference Range Comments GLUCOSE BEDSIDE TESTING (test code=GLUBED) 105 mg/dL 70-110 CBC W/AUTO [id number] 09:29:00 Test Item Value Reference Range Comments WHITE BLOOD CELL (test 3.3 K/mm3 3.5-11.0 code=WBC) RED BLOOD CELL (test code=RBC) 3.32 M/mm3 4.70-6.10 HEMOGLOBIN (test code=HGB) 12.1 G/DL 10.4-14.9 HEMATOCRIT (test code=HCT) 37.3 % 31.5-44.1 MEAN CELL VOLUME (test 112.3 Fl 84.5-98.6 code=MCV) MEAN CELL HGB (test code=MCH) 36.4 pg 27.0-34.2 MEAN CELL HGB CONCETRATION 32.4 G/DL 31.5-34.0 (test code=MCHC) RED CELL DISTRIBUTION WIDTH 14.4 SD 11.5-14.5 (test code=RDW) PLATELET COUNT (test code=PLT) 58.0 K/mm3 150-450 MEAN PLATELET VOLUME (test 10.10 fL 7.0-10.5 code=MPV) NEUTROPHIL % (test code=NT%) 72.3 % 40-76 LYMPHOCYTE % (test code=LY%) 16.9 % 20.5-51.1 MONOCYTE % (test code=MO%) 7.2 % 1.7-9.3 EOSINOPHIL % (test code=EO%) 3.3 % 0.0-6.0 BASOPHIL % (test code=BA%) 0.3 % 0.0-2.0 NEUTROPHIL # (test code=NT#) 2.40 K/mm3 1.8-7.6 LYMPHOCYTE # (test code=LY#) 0.6 K/mm3 0.6-3.2 MONOCYTE # (test code=MO#) 0.2 K/mm3 0.3-1.1 EOSINOPHIL # (test code=EO#) 0.1 K/mm3 0.0-0.4 BASOPHIL # (test code=BA#) 0.0 K/mm3 0.0-0.1 MANUAL DIFF REQUIRED (test NO DIFF/SCN CRITERIA SLIDE REVIEW CONSISTANT code=MDIFF) WITH AUTO DIFFERENTIAL. RBC [id number] 09:29:00 Test Item Value Reference Range Comments PLATELET ESTIMATE (test MARKEDLY DECREASED ADEQUATE PLATELET COUNT code=PLTEST) THOUSAND ESTIMATE=48,000 TO 60,000 PLATELET MORPHOLOGY NORMAL (test code=PLTMORPH) CBC W/AUTO [id number] 09:27:00 Test Item Value Reference Range Comments WHITE BLOOD CELL (test 3.3 K/mm3 3.5-11.0 code=WBC) RED BLOOD CELL (test code=RBC) 3.32 M/mm3 4.70-6.10 HEMOGLOBIN (test code=HGB) 12.1 G/DL 10.4-14.9 HEMATOCRIT (test code=HCT) 37.3 % 31.5-44.1 MEAN CELL VOLUME (test 112.3 Fl 84.5-98.6 code=MCV) MEAN CELL HGB (test code=MCH) 36.4 pg 27.0-34.2 MEAN CELL HGB CONCETRATION 32.4 G/DL 31.5-34.0 (test code=MCHC) RED CELL DISTRIBUTION WIDTH 14.4 SD 11.5-14.5 (test code=RDW) PLATELET COUNT (test code=PLT) 58.0 K/mm3 150-450 MEAN PLATELET VOLUME (test 10.10 fL 7.0-10.5 code=MPV) NEUTROPHIL % (test code=NT%) 72.3 % 40-76 LYMPHOCYTE % (test code=LY%) 16.9 % 20.5-51.1 MONOCYTE % (test code=MO%) 7.2 % 1.7-9.3 EOSINOPHIL % (test code=EO%) 3.3 % 0.0-6.0 BASOPHIL % (test code=BA%) 0.3 % 0.0-2.0 NEUTROPHIL # (test code=NT#) 2.40 K/mm3 1.8-7.6 LYMPHOCYTE # (test code=LY#) 0.6 K/mm3 0.6-3.2 MONOCYTE # (test code=MO#) 0.2 K/mm3 0.3-1.1 EOSINOPHIL # (test code=EO#) 0.1 K/mm3 0.0-0.4 BASOPHIL # (test code=BA#) 0.0 K/mm3 0.0-0.1 MANUAL DIFF REQUIRED (test NO DIFF/SCN CRITERIA SLIDE REVIEW CONSISTANT code=MDIFF) WITH AUTO DIFFERENTIAL. CBC W/AUTO [id number] 09:27:00 Test Item Value Reference Range Comments WHITE BLOOD CELL (test 3.3 K/mm3 3.5-11.0 code=WBC) RED BLOOD CELL (test code=RBC) 3.32 M/mm3 4.70-6.10 HEMOGLOBIN (test code=HGB) 12.1 G/DL 10.4-14.9 HEMATOCRIT (test code=HCT) 37.3 % 31.5-44.1 MEAN CELL VOLUME (test 112.3 Fl 84.5-98.6 code=MCV) MEAN CELL HGB (test code=MCH) 36.4 pg 27.0-34.2 MEAN CELL HGB CONCETRATION 32.4 G/DL 31.5-34.0 (test code=MCHC) RED CELL DISTRIBUTION WIDTH 14.4 SD 11.5-14.5 (test code=RDW) PLATELET COUNT (test code=PLT) 58.0 K/mm3 150-450 MEAN PLATELET VOLUME (test 10.10 fL 7.0-10.5 code=MPV) NEUTROPHIL % (test code=NT%) 72.3 % 40-76 LYMPHOCYTE % (test code=LY%) 16.9 % 20.5-51.1 MONOCYTE % (test code=MO%) 7.2 % 1.7-9.3 EOSINOPHIL % (test code=EO%) 3.3 % 0.0-6.0 BASOPHIL % (test code=BA%) 0.3 % 0.0-2.0 NEUTROPHIL # (test code=NT#) 2.40 K/mm3 1.8-7.6 LYMPHOCYTE # (test code=LY#) 0.6 K/mm3 0.6-3.2 MONOCYTE # (test code=MO#) 0.2 K/mm3 0.3-1.1 EOSINOPHIL # (test code=EO#) 0.1 K/mm3 0.0-0.4 BASOPHIL # (test code=BA#) 0.0 K/mm3 0.0-0.1 MANUAL DIFF REQUIRED (test NO DIFF/SCN CRITERIA SLIDE REVIEW CONSISTANT code=MDIFF) WITH AUTO DIFFERENTIAL. GLUCOSE BEDSIDE [id number] 08:43:00 Test Item Value Reference Range Comments GLUCOSE BEDSIDE TESTING (test code=GLUBED) 92 mg/dL 70-110 COMPREHENSIVE METABOLIC [id number] 08:12:00 Test Item Value Reference Range Comments SODIUM (test code=NA) 140 mmol/L 134-147 POTASSIUM (test code=K) 4.2 mmol/L 3.4-5.0 CHLORIDE (test code=CL) 100 mmol/L 100-108 CARBON DIOXIDE (test code=CO2) 36 mmol/L 21-32 ANION GAP (test code=GAP) 4.0 GAP calc 4.0-15.0 GLUCOSE (test code=GLU) 113 MG/DL 70-110 BLOOD UREA NITROGEN (test code=BUN) 19 MG/DL 7-18 GLOMERULAR FILTRATION RATE (test code=GFR) 59 estGFR >60 CREATININE (test code=CREAT) 1.0 MG/DL 0.6-1.0 TOTAL PROTEIN (test code=PROT) 7.3 G/DL 6.4-8.2 ALBUMIN (test code=ALB) 3.0 G/DL 3.4-5.0 GLOBULIN (test code=GLOB) 4.3 GM/dL ALBUMIN/GLOBULIN RATIO (test code=A/G) 0.7 RATIO 1.2-2.2 CALCIUM (test code=CA) 7.7 MG/DL 8.5-10.1 BILIRUBIN TOTAL (test code=BILT) 1.80 MG/DL 0.2-1.2 SGOT/AST (test code=AST) 16 Unit/L 15-37 SGPT/ALT (test code=ALT) 9 Unit/L 12-78 ALKALINE PHOSPHATASE TOTAL (test code=ALKP) 90 Unit/L 45-117 [id number] 08:12:00 Test Item Value Reference Range Comments MAGNESIUM (test code=MAG) 2.2 MG/DL 1.8-2.4 CBC W/AUTO [id number] 08:03:00 Test Item Value Reference Range Comments WHITE BLOOD CELL (test code=WBC) 3.3 K/mm3 3.5-11.0 RED BLOOD CELL (test code=RBC) 3.32 M/mm3 4.70-6.10 HEMOGLOBIN (test code=HGB) 12.1 G/DL 10.4-14.9 HEMATOCRIT (test code=HCT) 37.3 % 31.5-44.1 MEAN CELL VOLUME (test code=MCV) 112.3 Fl 84.5-98.6 MEAN CELL HGB (test code=MCH) 36.4 pg 27.0-34.2 MEAN CELL HGB CONCETRATION (test code=MCHC) 32.4 G/DL 31.5-34.0 RED CELL DISTRIBUTION WIDTH (test code=RDW) 14.4 SD 11.5-14.5 PLATELET COUNT (test code=PLT) 58.0 K/mm3 150-450 MEAN PLATELET VOLUME (test code=MPV) 10.10 fL 7.0-10.5 NEUTROPHIL % (test code=NT%) % 40-76 LYMPHOCYTE % (test code=LY%) % 20.5-51.1 MONOCYTE % (test code=MO%) % 1.7-9.3 EOSINOPHIL % (test code=EO%) % 0.0-6.0 BASOPHIL % (test code=BA%) % 0.0-2.0 NEUTROPHIL # (test code=NT#) K/mm3 1.8-7.6 LYMPHOCYTE # (test code=LY#) K/mm3 0.6-3.2 MONOCYTE # (test code=MO#) K/mm3 0.3-1.1 EOSINOPHIL # (test code=EO#) K/mm3 0.0-0.4 BASOPHIL # (test code=BA#) K/mm3 0.0-0.1 MANUAL DIFF REQUIRED (test code=MDIFF) DIFF/SCN CRITERIA GLUCOSE BEDSIDE [id number] 20:32:00 Test Item Value Reference Range Comments GLUCOSE BEDSIDE TESTING (test code=GLUBED) 104 mg/dL 70-110 HGB [id number] 17:25:00 Test Item Value Reference Range Comments HEMOGLOBIN (test code=HGB) 12.2 G/DL 10.4-14.9 HEMATOCRIT (test code=HCT) 38.3 % 31.5-44.1 GLUCOSE BEDSIDE [id number] 16:58:00 Test Item Value Reference Range Comments GLUCOSE BEDSIDE TESTING (test code=GLUBED) 112 mg/dL 70-110 GLUCOSE BEDSIDE [id number] 12:16:00 Test Item Value Reference Range Comments GLUCOSE BEDSIDE TESTING (test code=GLUBED) 126 mg/dL 70-110 GLUCOSE BEDSIDE [id number] 08:20:00 Test Item Value Reference Range Comments GLUCOSE BEDSIDE TESTING (test code=GLUBED) 117 mg/dL 70-110 HGB [id number] 04:55:00 Test Item Value Reference Range Comments HEMOGLOBIN (test code=HGB) 12.0 G/DL 10.4-14.9 HEMATOCRIT (test code=HCT) 37.9 % 31.5-44.1 GLUCOSE BEDSIDE [id number] 22:31:00 Test Item Value Reference Range Comments GLUCOSE BEDSIDE TESTING (test code=GLUBED) 139 mg/dL 70-110 GLUCOSE BEDSIDE [id number] 17:24:00 Test Item Value Reference Range Comments GLUCOSE BEDSIDE TESTING (test code=GLUBED) 124 mg/dL 70-110 HGB [id number] 16:27:00 Test Item Value Reference Range Comments HEMOGLOBIN (test code=HGB) 12.4 G/DL 10.4-14.9 HEMATOCRIT (test code=HCT) 38.9 % 31.5-44.1 GLUCOSE BEDSIDE [id number] 11:27:00 Test Item Value Reference Range Comments GLUCOSE BEDSIDE TESTING (test code=GLUBED) 140 mg/dL 70-110 GLUCOSE BEDSIDE [id number] 08:50:00 Test Item Value Reference Range Comments GLUCOSE BEDSIDE TESTING (test code=GLUBED) 111 mg/dL 70-110 CBC W/AUTO [id number] 05:05:00 Test Item Value Reference Range Comments WHITE BLOOD CELL (test 2.9 K/mm3 3.5-11.0 code=WBC) RED BLOOD CELL (test code=RBC) 3.47 M/mm3 4.70-6.10 HEMOGLOBIN (test code=HGB) 12.8 G/DL 10.4-14.9 HEMATOCRIT (test code=HCT) 38.7 % 31.5-44.1 MEAN CELL VOLUME (test 111.5 Fl 84.5-98.6 code=MCV) MEAN CELL HGB (test code=MCH) 36.9 pg 27.0-34.2 MEAN CELL HGB CONCETRATION 33.1 G/DL 31.5-34.0 (test code=MCHC) RED CELL DISTRIBUTION WIDTH 14.6 SD 11.5-14.5 (test code=RDW) PLATELET COUNT (test code=PLT) 60.0 K/mm3 150-450 MEAN PLATELET VOLUME (test 10.20 fL 7.0-10.5 code=MPV) NEUTROPHIL % (test code=NT%) 63.1 % 40-76 LYMPHOCYTE % (test code=LY%) 23.1 % 20.5-51.1 MONOCYTE % (test code=MO%) 9.7 % 1.7-9.3 EOSINOPHIL % (test code=EO%) 3.4 % 0.0-6.0 BASOPHIL % (test code=BA%) 0.7 % 0.0-2.0 NEUTROPHIL # (test code=NT#) 1.83 K/mm3 1.8-7.6 LYMPHOCYTE # (test code=LY#) 0.7 K/mm3 0.6-3.2 MONOCYTE # (test code=MO#) 0.3 K/mm3 0.3-1.1 EOSINOPHIL # (test code=EO#) 0.1 K/mm3 0.0-0.4 BASOPHIL # (test code=BA#) 0.0 K/mm3 0.0-0.1 MANUAL DIFF REQUIRED (test NO DIFF/SCN CRITERIA PLATELET COUNT REVIEWED code=MDIFF) AND VERIFIED. COMPREHENSIVE METABOLIC [id number] 04:30:00 Test Item Value Reference Range Comments SODIUM (test code=NA) 140 mmol/L 134-147 POTASSIUM (test code=K) 4.5 mmol/L 3.4-5.0 CHLORIDE (test code=CL) 105 mmol/L 100-108 CARBON DIOXIDE (test code=CO2) 31 mmol/L 21-32 ANION GAP (test code=GAP) 4.0 GAP calc 4.0-15.0 GLUCOSE (test code=GLU) 121 MG/DL 70-110 BLOOD UREA NITROGEN (test code=BUN) 24 MG/DL 7-18 GLOMERULAR FILTRATION RATE (test code=GFR) 52 estGFR >60 CREATININE (test code=CREAT) 1.1 MG/DL 0.6-1.0 TOTAL PROTEIN (test code=PROT) 6.9 G/DL 6.4-8.2 ALBUMIN (test code=ALB) 2.7 G/DL 3.4-5.0 GLOBULIN (test code=GLOB) 4.2 GM/dL ALBUMIN/GLOBULIN RATIO (test code=A/G) 0.6 RATIO 1.2-2.2 CALCIUM (test code=CA) 7.9 MG/DL 8.5-10.1 BILIRUBIN TOTAL (test code=BILT) 1.10 MG/DL 0.2-1.2 SGOT/AST (test code=AST) 17 Unit/L 15-37 SGPT/ALT (test code=ALT) 13 Unit/L 12-78 ALKALINE PHOSPHATASE TOTAL (test code=ALKP) 86 Unit/L 45-117 PROTHROMBIN [id number] 04:27:00 Test Item Value Reference Range Comments PT PATIENT (test code=PTP) 13.7 SECONDS 9.3-12.9 INTERNATIONAL NORMAL RATIO (test code=INR) 1.21 INR Unit 0.8-1.2 CBC W/AUTO [id number] 04:17:00 Test Item Value Reference Range Comments WHITE BLOOD CELL (test code=WBC) 2.9 K/mm3 3.5-11.0 RED BLOOD CELL (test code=RBC) 3.47 M/mm3 4.70-6.10 HEMOGLOBIN (test code=HGB) 12.8 G/DL 10.4-14.9 HEMATOCRIT (test code=HCT) 38.7 % 31.5-44.1 MEAN CELL VOLUME (test code=MCV) 111.5 Fl 84.5-98.6 MEAN CELL HGB (test code=MCH) 36.9 pg 27.0-34.2 MEAN CELL HGB CONCETRATION (test code=MCHC) 33.1 G/DL 31.5-34.0 RED CELL DISTRIBUTION WIDTH (test code=RDW) 14.6 SD 11.5-14.5 PLATELET COUNT (test code=PLT) 60.0 K/mm3 150-450 MEAN PLATELET VOLUME (test code=MPV) 10.20 fL 7.0-10.5 NEUTROPHIL % (test code=NT%) % 40-76 LYMPHOCYTE % (test code=LY%) % 20.5-51.1 MONOCYTE % (test code=MO%) % 1.7-9.3 EOSINOPHIL % (test code=EO%) % 0.0-6.0 BASOPHIL % (test code=BA%) % 0.0-2.0 NEUTROPHIL # (test code=NT#) K/mm3 1.8-7.6 LYMPHOCYTE # (test code=LY#) K/mm3 0.6-3.2 MONOCYTE # (test code=MO#) K/mm3 0.3-1.1 EOSINOPHIL # (test code=EO#) K/mm3 0.0-0.4 BASOPHIL # (test code=BA#) K/mm3 0.0-0.1 MANUAL DIFF REQUIRED (test code=MDIFF) DIFF/SCN CRITERIA - US ABDOMEN [id number] 00:11:00 [facility] [place] : 08/23/1951 Age/S: 68 / F [address] Unit #: [id number] Loc: [place] [address] Phys: Tyler Paz MD Acct: [id number] Dis Date: Status : ADM IN PHONE #: [phone] Exam Date: 10/30/2019 2200 FAX #: Reason: ASCITIS? EXAMS: CPT: [id number] US ABDOMEN COMPLETE [id number] Examination: Abdominal ultrasound Location code: S17 Comparison: NoneDiscussion: Clinical history is remarkable for possible ascites. Grayscale and color Doppler evaluation of the upper abdomen is performed. The aorta and inferior vena cava arewithin normal limits. Pancreas, aorta, and inferior vena cava are suboptimally visualized secondary to bowel gas. Liver is of normal size, its echogenicity is coarsened. Ascites is documented. Cholelithiasis is present. Gallbladder wall is thickened measuring 5.6 mm, pericholecystic fluid is present. Consider HIDA scan. Right kidney is 8.4 cm x 4.9 cm x 4.4 cm while the left is 9.1 cm x 4 cm x 3.8 cm. There is no evidence of focal renal mass or hydronephrosis. 1.2 cm area of increased echogenicity within the interpolar right kidney may represent angiomyolipoma, no evidence of shadowing. Spleen is enlarged measuring 13.4 cm. Impression: 1. Cholelithiasis with gallbladder wall thickening, pericholecystic fluid and ascites noted. Consider HIDA scan. 2. 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 at 0011 Reported and signed by: Gregor Brown M.D. CC: Sony Hager MD; Tyler Paz MD ; Nani Hess MD; Rodolfo Cardenas MD Technologist: Arlyn Diaz RDMS Trnneb Date /Time: 10/31/2019 (0011) [id number] PAGE 1 Signed Report Name: VASU STONE [place] : 08/23/1951 Age/S: 68 / F [address] [address] Unit #: [id number]: [place] [address] Phys: Tyler Paz MD Acct: [id number] Dis Date: Status: ADM IN PHONE #: [phone] Exam Date: 10/30/2019 2200 FAX #: Reason: ASCITIS? EXAMS: CPT: [id number] US ABDOMEN COMPLETE [id number] <Continued> Orig Print D/T: S: 10/31/2019 ( 0015) Probe: PAGE 2 Signed ReportGLUCOSE BEDSIDE [id number] 22:51:00 Test Item Value Reference Range Comments GLUCOSE BEDSIDE TESTING (test code=GLUBED) 120 mg/dL 70-110 CBC W/AUTO [id number] 17:47:00 Test Item Value Reference Range Comments WHITE BLOOD CELL (test 3.3 K/mm3 3.5-11.0 code=WBC) RED BLOOD CELL (test code=RBC) 3.56 M/mm3 4.70-6.10 HEMOGLOBIN (test code=HGB) 13.2 G/DL 10.4-14.9 HEMATOCRIT (test code=HCT) 39.7 % 31.5-44.1 MEAN CELL VOLUME (test 111.5 Fl 84.5-98.6 code=MCV) MEAN CELL HGB (test code=MCH) 37.1 pg 27.0-34.2 MEAN CELL HGB CONCETRATION 33.2 G/DL 31.5-34.0 (test code=MCHC) RED CELL DISTRIBUTION WIDTH 14.4 SD 11.5-14.5 (test code=RDW) PLATELET COUNT (test code=PLT) 60.0 K/mm3 150-450 MEAN PLATELET VOLUME (test 10.50 fL 7.0-10.5 code=MPV) NEUTROPHIL % (test code=NT%) 70.7 % 40-76 LYMPHOCYTE % (test code=LY%) 18.8 % 20.5-51.1 MONOCYTE % (test code=MO%) 6.8 % 1.7-9.3 EOSINOPHIL % (test code=EO%) 3.1 % 0.0-6.0 BASOPHIL % (test code=BA%) 0.6 % 0.0-2.0 NEUTROPHIL # (test code=NT#) 2.30 K/mm3 1.8-7.6 LYMPHOCYTE # (test code=LY#) 0.6 K/mm3 0.6-3.2 MONOCYTE # (test code=MO#) 0.2 K/mm3 0.3-1.1 EOSINOPHIL # (test code=EO#) 0.1 K/mm3 0.0-0.4 BASOPHIL # (test code=BA#) 0.0 K/mm3 0.0-0.1 MANUAL DIFF REQUIRED (test NO DIFF/SCN CRITERIA SLIDE REVIEW CONSISTANT code=MDIFF) WITH AUTO DIFFERENTIAL. RBC [id number] 17:47:00 Test Item Value Reference Range Comments PLATELET ESTIMATE (test DECREASED THOUSAND ADEQUATE PLATELET ESTIMATE 64,000 code=PLTEST) TO 80,000 PLATELET MORPHOLOGY (test NORMAL code=PLTMORPH) CBC W/AUTO [id number] 17:46:00 Test Item Value Reference Range Comments WHITE BLOOD CELL (test 3.3 K/mm3 3.5-11.0 code=WBC) RED BLOOD CELL (test code=RBC) 3.56 M/mm3 4.70-6.10 HEMOGLOBIN (test code=HGB) 13.2 G/DL 10.4-14.9 HEMATOCRIT (test code=HCT) 39.7 % 31.5-44.1 MEAN CELL VOLUME (test 111.5 Fl 84.5-98.6 code=MCV) MEAN CELL HGB (test code=MCH) 37.1 pg 27.0-34.2 MEAN CELL HGB CONCETRATION 33.2 G/DL 31.5-34.0 (test code=MCHC) RED CELL DISTRIBUTION WIDTH 14.4 SD 11.5-14.5 (test code=RDW) PLATELET COUNT (test code=PLT) 60.0 K/mm3 150-450 MEAN PLATELET VOLUME (test 10.50 fL 7.0-10.5 code=MPV) NEUTROPHIL % (test code=NT%) 70.7 % 40-76 LYMPHOCYTE % (test code=LY%) 18.8 % 20.5-51.1 MONOCYTE % (test code=MO%) 6.8 % 1.7-9.3 EOSINOPHIL % (test code=EO%) 3.1 % 0.0-6.0 BASOPHIL % (test code=BA%) 0.6 % 0.0-2.0 NEUTROPHIL # (test code=NT#) 2.30 K/mm3 1.8-7.6 LYMPHOCYTE # (test code=LY#) 0.6 K/mm3 0.6-3.2 MONOCYTE # (test code=MO#) 0.2 K/mm3 0.3-1.1 EOSINOPHIL # (test code=EO#) 0.1 K/mm3 0.0-0.4 BASOPHIL # (test code=BA#) 0.0 K/mm3 0.0-0.1 MANUAL DIFF REQUIRED (test NO DIFF/SCN CRITERIA SLIDE REVIEW CONSISTANT code=MDIFF) WITH AUTO DIFFERENTIAL. CBC W/AUTO [id number] 17:46:00 Test Item Value Reference Range Comments WHITE BLOOD CELL (test 3.3 K/mm3 3.5-11.0 code=WBC) RED BLOOD CELL (test code=RBC) 3.56 M/mm3 4.70-6.10 HEMOGLOBIN (test code=HGB) 13.2 G/DL 10.4-14.9 HEMATOCRIT (test code=HCT) 39.7 % 31.5-44.1 MEAN CELL VOLUME (test 111.5 Fl 84.5-98.6 code=MCV) MEAN CELL HGB (test code=MCH) 37.1 pg 27.0-34.2 MEAN CELL HGB CONCETRATION 33.2 G/DL 31.5-34.0 (test code=MCHC) RED CELL DISTRIBUTION WIDTH 14.4 SD 11.5-14.5 (test code=RDW) PLATELET COUNT (test code=PLT) 60.0 K/mm3 150-450 MEAN PLATELET VOLUME (test 10.50 fL 7.0-10.5 code=MPV) NEUTROPHIL % (test code=NT%) 70.7 % 40-76 LYMPHOCYTE % (test code=LY%) 18.8 % 20.5-51.1 MONOCYTE % (test code=MO%) 6.8 % 1.7-9.3 EOSINOPHIL % (test code=EO%) 3.1 % 0.0-6.0 BASOPHIL % (test code=BA%) 0.6 % 0.0-2.0 NEUTROPHIL # (test code=NT#) 2.30 K/mm3 1.8-7.6 LYMPHOCYTE # (test code=LY#) 0.6 K/mm3 0.6-3.2 MONOCYTE # (test code=MO#) 0.2 K/mm3 0.3-1.1 EOSINOPHIL # (test code=EO#) 0.1 K/mm3 0.0-0.4 BASOPHIL # (test code=BA#) 0.0 K/mm3 0.0-0.1 MANUAL DIFF REQUIRED (test NO DIFF/SCN CRITERIA SLIDE REVIEW CONSISTANT code=MDIFF) WITH AUTO DIFFERENTIAL. CBC W/AUTO [id number] 16:20:00 Test Item Value Reference Range Comments WHITE BLOOD CELL (test code=WBC) 3.3 K/mm3 3.5-11.0 RED BLOOD CELL (test code=RBC) 3.56 M/mm3 4.70-6.10 HEMOGLOBIN (test code=HGB) 13.2 G/DL 10.4-14.9 HEMATOCRIT (test code=HCT) 39.7 % 31.5-44.1 MEAN CELL VOLUME (test code=MCV) 111.5 Fl 84.5-98.6 MEAN CELL HGB (test code=MCH) 37.1 pg 27.0-34.2 MEAN CELL HGB CONCETRATION (test code=MCHC) 33.2 G/DL 31.5-34.0 RED CELL DISTRIBUTION WIDTH (test code=RDW) 14.4 SD 11.5-14.5 PLATELET COUNT (test code=PLT) 60.0 K/mm3 150-450 MEAN PLATELET VOLUME (test code=MPV) 10.50 fL 7.0-10.5 NEUTROPHIL % (test code=NT%) % 40-76 LYMPHOCYTE % (test code=LY%) % 20.5-51.1 MONOCYTE % (test code=MO%) % 1.7-9.3 EOSINOPHIL % (test code=EO%) % 0.0-6.0 BASOPHIL % (test code=BA%) % 0.0-2.0 NEUTROPHIL # (test code=NT#) K/mm3 1.8-7.6 LYMPHOCYTE # (test code=LY#) K/mm3 0.6-3.2 MONOCYTE # (test code=MO#) K/mm3 0.3-1.1 EOSINOPHIL # (test code=EO#) K/mm3 0.0-0.4 BASOPHIL # (test code=BA#) K/mm3 0.0-0.1 MANUAL DIFF REQUIRED (test code=MDIFF) DIFF/SCN CRITERIA BASIC METABOLIC [id number] 16:04:00 Test Item Value Reference Range Comments SODIUM (test code=NA) 140 mmol/L 134-147 POTASSIUM (test code=K) 4.9 mmol/L 3.4-5.0 CHLORIDE (test code=CL) 103 mmol/L 100-108 CARBON DIOXIDE (test code=CO2) 34 mmol/L 21-32 ANION GAP (test code=GAP) 3.0 GAP calc 4.0-15.0 GLUCOSE (test code=GLU) 135 MG/DL 70-110 BLOOD UREA NITROGEN (test code=BUN) 24 MG/DL 7-18 GLOMERULAR FILTRATION RATE (test code=GFR) 43 estGFR >60 CREATININE (test code=CREAT) 1.3 MG/DL 0.6-1.0 CALCIUM (test code=CA) 8.3 MG/DL 8.5-10.1
[2019-11-04 16:15] LABS: Protime INR 1.17
[2019-11-04 16:18] LABS: Absolute Lymphocytes (CBC) 0.5 K/uL (0.7-4.9); Basophils % 0.3 % (0-1.3); Hematocrit 38.9 % (36.0-45.0); Lymphocytes % 11.5 % (15.3-44.8); MPV 9.5 fL (7.6-11.3); RBC Red Blood Cell Count 3.63 M/uL (3.86-4.86)
[2019-11-04 16:30] LABS: Blood Morphology Comment NOTED (NOT SEEN); Macrocytosis 1+; Platelet Estimate DECR; Urine White Blood Cell Casts OK
[2019-11-04 16:40] LABS: Urine Blood 2+ (NEG); Urine Glucose NEGATIVE (NEG); Urine Protein NEGATIVE (NEG); Urine Specific Gravity 1.015 (1.005-1.030)
[2019-11-04 16:41] LABS: ALT/SGPT 15 U/L (12-78); AST/SGOT 18 U/L (15-37); Albumin 3.4 g/dL (3.4-5.0); Alkaline Phosphatase 96 U/L (45-117); BUN Blood Urea Nitrogen 21 mg/dL (7-18); Bicarbonate 29 mmol/L (21-32); Bilirubin Direct 0.8 mg/dL (0-0.2); Bilirubin Total 1.6 mg/dL (0.2-1.0); Glucose Level 168 mg/dL (74-106); Magnesium 2.3 mg/dL (1.8-2.4); NT PRO-BNP 258 pg/mL (<125); Potassium 3.9 mmol/L (3.5-5.1); Protein, Total 8.4 g/dL (6.4-8.2); Sodium Level 140 mmol/L (136-145); Troponin (Emerg Dept Use Only) < 0.02 ng/mL (0.0-0.045)
[2019-11-04 16:48] LABS: Urine Bacteria <20 /HPF (<20); Urine Culture Reflex Order REFLEXED; Urine RBC >50 /HPF (NONE SEEN)
[2019-11-04 16:51] LABS: Barbiturates NEGATIVE (NEGATIVE); Benzodiazepines NEGATIVE (NEGATIVE); Cocaine NEGATIVE (NEGATIVE); METHAMPHETAM NEGATIVE (NEGATIVE); Methadone NEGATIVE (NEGATIVE); Opiates NEGATIVE (NEGATIVE); Phencyclidine NEGATIVE (NEGATIVE); THC Cannibis NEGATIVE (NEGATIVE)
--- NOTE | 2019-11-04 17:25 | RAD REPORT ---
EXAM DESCRIPTION: CT - Head Brain Wo Cont - 11/04/2019 4:58 pm CLINICAL HISTORY: Alteration of awareness/confusion COMPARISON: 2018 TECHNIQUE: Computed axial tomography of the head was obtained. IV contrast was not requested. All CT scans are performed using dose optimization technique as appropriate and may include automated exposure control or mA/KV adjustment according to patient size. FINDINGS: An intracranial bleed is not seen . The ventricles are normal in caliber. No extra-axial fluid collection is noted. Fluid within the sinuses/ mastoids is not seen. IMPRESSION: No acute intracranial abnormality is seen. If patient's symptoms persist MRI of the bra in would be recommended.
--- NOTE | 2019-11-04 18:56 | RAD REPORT ---
EXAM DESCRIPTION: CT - Chest Abdomen Pelvis W Cont - 11/04/2019 6:23 pm CLINICAL HISTORY: Chest and abdominal pain COMPARISON: 2018 TECHNIQUE: Computed axial tomography of the chest, abdomen and pelvis was obtained. 100 cc Isovue-30 0 was administered intravenously. Oral contrast was not requested. This limits evaluation of bowel. All CT scans are performed using dose optimization technique as appropriate and may include automated exposure control or mA/KV adjustment according to patient size. FINDINGS: A 6 millimeter right middle lobe nodule is stable. 2 millimeter right lower lobe nodule is stable. Left lung is clear No pleural effusion. No pericardial effusion. No mediastinal or hilar lymphadenopathy Cirrhotic liver. Small cysts. Distended portal vein Spleen measures 18 centimeters. Varices are present. Atrophic pancreas. Gallstones. Small renal cysts. Tiny nonobstructing right renal calculus Dumas catheter within the bladder. There is no evidence of diverticulitis. 4 centimeter fatty mass with a calcified rim within the left abdomen unchanged is benign A small amount of ascites Small periaortic/caval lymph nodes have decreased in size probably reactive in nature IMPRESSION: Two subcentimeter right lung nodules stable probably benign Cirrhosis Cholelithiasis without cholecystitis Small amount of ascites
--- NOTE | 2019-11-04 19:06 | RAD REPORT ---
EXAM DESCRIPTION: Dre Single View11/04/2019 4:37 pm CLINICAL HISTORY: Chest pain COMPARISON: none FINDINGS: Area of subsegmental atelectasis is present within the right lung base. Patient's known sm all right lung nodules are not clearly seen on this exam Left lung appears clear Heart is borderline enlarged
[2019-11-04] MEDS ORDERED: Levofloxacin500mg IV 500 MG/100 ML BAG IV ONE (19:10)
[2019-11-04] MEDS ORDERED: NA CHLORIDE 0.9% 2,000 ML ONE (19:10)
[2019-11-04] MEDS ORDERED: NA CHLORIDE 0.9% 500 ML ONE (19:10)
--- NOTE | 2019-11-04 19:40 | ER ---
Nurse's Notes [facility] Name: Sofie Kinney Age: 68 yrs Sex: Female : 1950 Arrival Date: 11/04/2019 Time: 15:45 Bed 17 Private MD: Diagnosis: Altered mental status, unspecified;Urinary tract infection, site not specified;Hepatitic encephalopathy Presentation: 11/04 15:46 Presenting complaint: EMS states: DAUGHTER CALL IN FOR ALTERED MENTAL STATUS. WE THINK rv IT IS POSSIBLE OVERDOSE WITH PRESCRIPTION PILLS BUT WE DID NOT FIND ANY BOTTLES. BLOOD SUGAR IS 131. SHE WAS LIKE THIS AND SHAKING FOR TWO HOURS BEFORE THEY CONTACTED US. SHE ANSWERS TO YES OR NO QUESTION. SHE USUALLY IS ALERT AND ORIENTED X 4. Transition of care: patient was not received from another setting of care. Onset of symptoms was November 04, 2019 at 14:00. Risk Assessment: Do you want to hurt yourself or someone else? Patient reports no desire to harm self or others. Care prior to arrival: None. 15:46 Method Of Arrival: EMS: [facility] rv 15:46 Acuity: ROBERT 3 rv Triage Assessment: 15:50 General: Appears in no apparent distress. Behavior is quiet. Pain: Denies pain. EENT: rv No signs and/or symptoms were reported regarding the EENT system. Neuro: Level of Consciousness is confused, Oriented to none. Cardiovascular: Patient's skin is warm and dry. Respiratory: Airway is patent. Derm: Skin with poor turgor. Historical: - Allergies: 15:50 PENICILLINS; rv - PMHx: 15:50 Anemia; Diabetes - NIDDM; Hypertension; Thyroid problem; rv - PSHx: 15:50 Unable to obtain; rv - Ebola Screening: : No symptoms or risks identified at this time. Screenin:53 Abuse screen: Denies threats or abuse. Denies injuries from another. Nutritional sg screening: No deficits noted. Tuberculosis screening: No symptoms or risk factors identified. Never had TB. Fall Risk None identified. Assessment: 16:00 General: Appears in no apparent distress. ill, unkempt, well nourished, Behavior is sg calm, cooperative, appropriate for age. Pain: Denies pain. Neuro: Level of Consciousness is confused, obtunded, Oriented to person, Speech is slurred, Facial symmetry appears normal, Pupils are constricted. Cardiovascular: Heart tones S1 S2 present Patient's skin is warm and dry. Respiratory: Airway is patent Respiratory effort is even, labored, Respiratory pattern is symmetrical. GI: Abdomen is round distended. : No deficits noted. EENT: No deficits noted. Derm: Skin is jaundiced, Skin temperature is warm. Musculoskeletal: Circulation, motion, and sensation intact. Range of motion: intact in all extremities. 18:15 Reassessment: daughter left a contact number, [phone] - Jaylyn. rv 18:40 Reassessment: martínez MANZANO notified Lac result, VS, orders received pt to be medicated sg as ordered. 19:00 Reassessment: Patient appears in no apparent distress at this time. Patient and/or jb4 family updated on plan of care and expected duration. Pain level reassessed. PT is resting in bed with eyes closed respirations are even and unlabored. Respirations are clear to auscultation bilaterally. No s/s of pain or distress noted. 20:00 Reassessment: Patient appears in no apparent distress at this time. No changes from jb4 previously documented assessment. Patient and/or family updated on plan of care and expected duration. Pain level reassessed. 20:58 Reassessment: Patient appears in no apparent distress at this time. Patient and/or jb4 family updated on plan of care and expected duration. Pain level reassessed. Pt remains alert and oriented to self. speech remains slurred. respirations are even and unlabored.no s/s of distress noted. 22:00 Reassessment: Patient appears in no apparent distress at this time. Patient and/or jb4 family updated on plan of care and expected duration. Pain level reassessed. PT remains oriented to self. PT did not tolerate PO administration of Lactulose, provider notified. Attempted NG tube PT unable to tolerate. Provider notified. 22:40 Reassessment: Patient appears in no apparent distress at this time. No changes from jb4 previously documented assessment. Patient and/or family updated on plan of care and expected duration. Pain level reassessed. Pt cleaned and changed. 11/05 00:00 Reassessment: Patient appears in no apparent distress at this time. Patient and/or jb4 family updated on plan of care and expected duration. Pain level reassessed. Pt remain a\T\o to self. respirations are even and unlabored. No s/s of pain noted. Report called to SHARRI Ayoub. 00:49 Reassessment: Patient appears in no apparent distress at this time. No changes from jb4 previously documented assessment. Patient and/or family updated on plan of care and expected duration. Pain level reassessed. Vital Signs: 11/04 15:48 BP 124 / 70; Pulse 86; Resp 19; Temp 98; Pulse Ox 100% on R/A; Weight 81.65 kg (R); rv 17:00 BP 122 / 70; Pulse 87; Resp 19; Pulse Ox 100% on R/A; sg 18:00 BP 107 / 55; Pulse 88; Resp 20; Pulse Ox 100% on R/A; sg 18:47 BP 93 / 49; Pulse 87; Resp 20; Temp 97.1; Pulse Ox 100% on R/A; sg 19:15 BP 116 / 45; Pulse 78; Resp 15; Temp 97.3(TE); Pulse Ox 99% on R/A; jb4 20:45 BP 117 / 87; Pulse 81; Resp 15; Pulse Ox 100% on R/A; jb4 11/05 00:15 BP 111 / 70; Pulse 83; Resp 15; Pulse Ox 98% on R/A; jb4 ED Course: 11/04 15:45 Patient arrived in ED. rv 15:48 Triage completed. rv 15:50 Initial lab(s) drawn, by me, held in ED. Inserted saline lock: 20 gauge in right sg antecubital area, using aseptic technique. Blood collected. 15:50 First set of blood cultures drawn by me. sg 15:54 Ervin Campa, SHARRI is Primary Nurse. sg 16:02 Arm band placed on. hb 16:10 Martínez Campbell, BUTTER FAT TESTER is PHCP. pm1 16:10 Farrukh Coleman MD is Attending Physician. pm1 16:27 Straight cath inserted, using sterile technique, 18 Fr. Returned daxa urine. Patient sg tolerated well. 16:38 XRAY Chest (1 view) In Process Unspecified. EDMS 16:58 CT Head Brain wo Cont In Process Unspecified. EDMS 18:20 Second set of blood cultures drawn by lab staff. sg 18:24 Chest Abdomen Pelvis W Con CT In Process Unspecified. EDMS 18:39 EKG done, by ED staff, reviewed by Farrukh Coleman MD. ms 19:40 Farrukh Charles MD is Hospitalizing Provider. pm1 12 00:45 No provider procedures requiring assistance completed. Patient admitted, IV remains in jb4 place. Administered Medications: 11/04 19:21 Drug: LevaQUIN 500 mg Volume: 100 ml; Route: IVPB; Infused Over: 60 mins; Site: right jb4 antecubital; 20:21 Follow up: Response: No adverse reaction; IV Status: Completed infusion; IV Intake: jb4 100ml 19:21 Drug: NS 0.9% (30 ml/kg) 30 ml/kg Route: IV; Rate: bolus; Site: right antecubital; jb4 22:00 Follow up: Response: No adverse reaction; IV Status: Completed infusion; IV Intake: jb4 2449ml 22:30 Drug: Lactulose 30 grams {Note: administered AK per provider. Pt unable to tolerate PO jb4 or NG tube placement.} Volume: 45 ml; Route: PO; 23:00 Follow up: Response: No adverse reaction jb4 23:42 Not Given (Other Intervention Used): Lactulose 30 grams 45 ml PO once jb4 12 00:15 Not Given (Physician Discretion): Lactulose 200 grams AK once; dilute with 700 mL of jb4 saline, then give by rectal balloon catheter; retain for 30-60 minutes Intake: 11/04 20:21 IV: 100ml; Total: 100ml. jb4 22:00 IV: 2449ml; Total: 2549ml. [facility] Outcome: 19:40 Decision to Hospitalize by Provider. pm1 11/05 00:45 Admitted to Tele accompanied by nurse, via stretcher, with chart, Report called to jbDewayne Ayoub RN Condition: stable 00:55 Patient left the ED. [facility] Signatures: Dispatcher [employer] EDMS Ervin Campa, RN RN Nikia Mcgowan ms Martínez Campbell, BUTTER FAT TESTER BUTTER FAT TESTER pm1 Whitney Seals, Gregor Zarco RN, RN RN [facility] Booker Peralta RN RN rv
--- NOTE | 2019-11-04 19:41 | EDPHYS ---
Physician Documentation [facility] Name: Sofie Kinney Age: 68 yrs Sex: Female : 1950 Arrival Date: 11/04/2019 Time: 15:45 Bed 17 Private MD: ED Physician Farrukh Coleman HPI: 11/04 17:06 This 68 yrs old Female presents to ER via EMS with complaints of Altered pm1 mental status. 17:06 The patient presents with decreased mental status. Onset: The symptoms/episode pm1 began/occurred today. Possible causes: unknown. Associated signs and symptoms: The patient has no apparent associated signs or symptoms. Patient's baseline: Neuro: alert and fully oriented, Motor: no deficits, Ambulation: walks with assist only, Speech: normal. Unable to obtain HPI due to altered mental status. similar presentation of altered mental status with UTI in the past. 17:06 Information obtained from daughter who the patient lives with. pm1 Historical: - Allergies: 15:50 PENICILLINS; rv - PMHx: 15:50 Anemia; Diabetes - NIDDM; Hypertension; Thyroid problem; rv - PSHx: 15:50 Unable to obtain; rv - Ebola Screening: : No symptoms or risks identified at this time. ROS: 17:06 Constitutional: Negative for fever, chills, and weight loss, Eyes: Negative for injury, pm1 pain, redness, and discharge. 17:06 ENT: Negative for injury, pain, and discharge, Neck: Negative for injury, pain, and swelling, Cardiovascular: Negative for chest pain, palpitations, and edema, Respiratory: Negative for shortness of breath, cough, wheezing, and pleuritic chest pain, Abdomen/GI: Negative for abdominal pain, nausea, vomiting, diarrhea, and constipation, Back: Negative for injury and pain, : Negative for injury, bleeding, discharge, and swelling, MS/Extremity: Negative for injury and deformity, Skin: Negative for injury, rash, and discoloration. 17:06 Neuro: Positive for altered mental status, Negative for syncope. 17:06 Unable to obtain ROS due to altered mental status, information obtained from daughter. Exam: 17:06 Head/Face: Normocephalic, atraumatic. Neck: Trachea midline, no thyromegaly or masses pm1 palpated, and no cervical lymphadenopathy. Supple, full range of motion without nuchal rigidity, or vertebral point tenderness. No Meningismus. Chest/axilla: Normal chest wall appearance and motion. Nontender with no deformity. No lesions are appreciated. Cardiovascular: Regular rate and rhythm with a normal S1 and S2. No gallops, murmurs, or rubs. No pulse deficits. Respiratory: Lungs have equal breath sounds bilaterally, clear to auscultation and percussion. No rales, rhonchi or wheezes noted. No increased work of breathing, no retractions or nasal flaring. Back: No spinal tenderness. No costovertebral tenderness. Full range of motion. Skin: Warm, dry with normal turgor. Normal color with no rashes, no lesions, and no evidence of cellulitis. MS/ Extremity: Pulses equal, no cyanosis. Neurovascular intact. Full, normal range of motion. 17:06 Constitutional: The patient appears in no acute distress, awake, comfortable, non-diaphoretic, non-toxic, well developed, well hydrated, well groomed, well nourished. 17:06 Abdomen/GI: Inspection: obese Bowel sounds: normal, Palpation: abdomen is soft and non-tender, mass, is not appreciated, rebound tenderness, is not appreciated. 17:06 Neuro: Orientation: to person, Mentation: able to follow commands, Motor: is normal, moves all fours. Vital Signs: 15:48 BP 124 / 70; Pulse 86; Resp 19; Temp 98; Pulse Ox 100% on R/A; Weight 81.65 kg (R); rv 17:00 BP 122 / 70; Pulse 87; Resp 19; Pulse Ox 100% on R/A; sg 18:00 BP 107 / 55; Pulse 88; Resp 20; Pulse Ox 100% on R/A; sg 18:47 BP 93 / 49; Pulse 87; Resp 20; Temp 97.1; Pulse Ox 100% on R/A; sg 19:15 BP 116 / 45; Pulse 78; Resp 15; Temp 97.3(TE); Pulse Ox 99% on R/A; jb4 20:45 BP 117 / 87; Pulse 81; Resp 15; Pulse Ox 100% on R/A; jb4 11/05 00:15 BP 111 / 70; Pulse 83; Resp 15; Pulse Ox 98% on R/A; jb4 MDM: 11/04 16:11 Patient medically screened. pm1 19:39 Data reviewed: vital signs. Data interpreted: Pulse oximetry: on room air is 99 %. pm1 Interpretation: normal. Counseling: I had a detailed discussion with the patient and/or guardian regarding: the historical points, exam findings, and any diagnostic results supporting the discharge/admit diagnosis, lab results, radiology results, the need for further work-up and treatment in the hospital. 20:24 Physician consultation: Farrukh Charles MD was called at 20:24, was contacted at 20:24, pm1 regarding admission, patient's condition, and will see patient. 11/04 16:01 Order name: Basic Metabolic Panel; Complete Time: 16:44 sg 11/04 16:01 Order name: CBC with Diff; Complete Time: 16:44 sg 11/04 16:01 Order name: LFT's; Complete Time: 16:44 sg 11/04 16:01 Order name: Magnesium; Complete Time: 16:44 sg 11/04 16:01 Order name: NT PRO-BNP; Complete Time: 16:44 sg 11/04 16:01 Order name: PT-INR; Complete Time: 16:44 sg 11/04 16:01 Order name: Troponin (emerg Dept Use Only); Complete Time: 16:44 sg 11/04 16:01 Order name: AMMONIA; Complete Time: 16:44 sg 11/04 16:03 Order name: Glucose, Ancillary Testing; Complete Time: 16:18 EDMS 11/04 16:13 Order name: Urine Microscopic Only; Complete Time: 16:51 pm1 11/04 16:13 Order name: Acetaminophen; Complete Time: 16:59 pm1 11/04 16:13 Order name: ETOH Level; Complete Time: 16:44 pm1 11/04 16:13 Order name: Ptt, Activated; Complete Time: 16:44 pm1 11/04 16:13 Order name: Salicylate; Complete Time: 17:46 pm1 11/04 16:13 Order name: Urine Drug Screen; Complete Time: 16:52 pm1 11/04 16:29 Order name: Urine Dipstick--Ancillary (enter results); Complete Time: 16:44 hb 11/04 16:32 Order name: CBC Smear Scan; Complete Time: 16:44 EDMS 11/04 16:50 Order name: Urine Culture EDMS 11/04 17:06 Order name: Lactate; Complete Time: 18:53 pm1 11/04 17:06 Order name: Procalcitonin; Complete Time: 18:53 pm1 11/04 17:19 Order name: Blood Culture Adult (2) pm1 11/04 20:54 Order name: CBC with Automated Diff EDMS 11/04 20:54 Order name: CBC with Automated Diff EDMS 11/04 20:54 Order name: Comprehensive Metabolic Panel EDMS 11/04 20:54 Order name: Comprehensive Metabolic Panel EDMS 11/04 20:54 Order name: Protime (+INR) EDMS 11/04 20:54 Order name: Protime (+INR) EDMS 11/04 20:54 Order name: PTT, Activated Partial Thromb EDMS 11/04 20:54 Order name: PTT, Activated Partial Thromb EDMS 11/04 20:56 Order name: Lactate Sepsis 2 HR Follow-up; Complete Time: 21:02 EDMD 11/04 16:01 Order name: XRAY Chest (1 view); Complete Time: 19:17 11/04 16:01 Order name: EKG; Complete Time: 16:02 11/04 16:01 Order name: Cardiac monitoring; Complete Time: 16:37 11/04 16:01 Order name: EKG - Nurse/Tech; Complete Time: 18:39 11/04 16:01 Order name: IV Saline Lock; Complete Time: 16:37 11/04 16:01 Order name: Labs collected and sent; Complete Time: 16:37 11/04 16:01 Order name: O2 Per Protocol; Complete Time: 16:37 11/04 16:01 Order name: O2 Sat Monitoring; Complete Time: 16:37 11/04 16:13 Order name: Urine Dipstick-Ancillary (obtain specimen); Complete Time: 16:26 pm1 11/04 16:18 Order name: CT Head Brain wo Cont; Complete Time: 17:46 pm1 11/04 16:19 Order name: Straight Cath - Urine; Complete Time: 16:26 pm1 11/04 17:19 Order name: Chest Abdomen Pelvis W Con CT; Complete Time: 19:17 pm1 11/04 19:05 Order name: Dumas; Complete Time: 19:05 sg 11/04 20:54 Order name: CONS Pharmacy Consult EDMS 11/04 20:54 Order name: Regular EDMD Administered Medications: 19:21 Drug: LevaQUIN 500 mg Volume: 100 ml; Route: IVPB; Infused Over: 60 mins; Site: right jb4 antecubital; 20:21 Follow up: Response: No adverse reaction; IV Status: Completed infusion; IV Intake: jb4 100ml 19:21 Drug: NS 0.9% (30 ml/kg) 30 ml/kg Route: IV; Rate: bolus; Site: right antecubital; jb4 22:00 Follow up: Response: No adverse reaction; IV Status: Completed infusion; IV Intake: jb4 2449ml 22:30 Drug: Lactulose 30 grams {Note: administered GA per provider. Pt unable to tolerate PO jb4 or NG tube placement.} Volume: 45 ml; Route: PO; 23:00 Follow up: Response: No adverse reaction jb4 23:42 Not Given (Other Intervention Used): Lactulose 30 grams 45 ml PO once jb4 11/05 00:15 Not Given (Physician Discretion): Lactulose 200 grams GA once; dilute with 700 mL of jb4 saline, then give by rectal balloon catheter; retain for 30-60 minutes Disposition: 11/04/19 19:40 Hospitalization ordered by Farrukh Charles for Inpatient Admission. Preliminary diagnosis are Altered mental status, unspecified, Urinary tract infection, site not specified, Hepatitic encephalopathy. - Bed requested for Telemetry/MedSurg (Inpatient). - Status is Inpatient Admission. jb4 - Condition is Stable. - Problem is new. - Symptoms have improved. UTI on Admission? Yes Addendum: 11/06/2019 15:18 Co-signature as Attending Physician, Farrukh Coleman MD. m a2 Signatures: Dispatcher [employer] [facility] Jane Franz RN RN mw Gay, Steven, RN RN sg Yuriy Campbell, ELDON [employer] pm1 Gregor Santos RN RN jb4 Alzahri, Mohammad, MD MD mn2 Booker Peralta RN RN rv Corrections: (The following items were deleted from the chart) 11/04 20:14 19:40 Hospitalization Ordered by Farrukh Charles MD for Inpatient Admission. Preliminary pm1 diagnosis is Altered mental status, unspecified. Bed requested for Telemetry/MedSurg (Inpatient). Status is Inpatient Admission. Condition is Stable. Problem is new. Symptoms have improved. UTI on Admission? Yes. pm1 20:59 20:14 11/04/2019 19:40 Hospitalization Ordered by Farrukh Charles MD for Inpatient mw Admission. Preliminary diagnosis is Altered mental status, unspecified; Urinary tract infection, site not specified; Hepatitic encephalopathy. Bed requested for Telemetry/MedSurg (Inpatient). Status is Inpatient Admission. Condition is Stable. Problem is new. Symptoms have improved. UTI on Admission? Yes. pm1 11/05 00:55 11/04 20:59 11/04/2019 19:40 Hospitalization Ordered by Farrukh Charles MD for Inpatient jb4 Admission. Preliminary diagnosis is Altered mental status, unspecified; Urinary tract infection, site not specified; Hepatitic encephalopathy. Bed requested for Telemetry/MedSurg (Inpatient). Status is Inpatient Admission. Condition is Stable. Problem is new. Symptoms have improved. UTI on Admission? Yes. mw
[2019-11-04] MEDS ORDERED: ONDANSETRON 4 MG/2 ML VIAL IV PRN (20:49)
[2019-11-04] MEDS ORDERED: MORPHINE 2 MG/ML SYR IV PRN (20:49)
[2019-11-04] MEDS ORDERED: MIDODRINE HCL 5 MG TABLET PO PRN (20:52)
[2019-11-04] MEDS: LACTULOSE 20 GM/30 ML UCUP PO SCH (21:00)
[2019-11-04] MEDS ORDERED: NA CHLORIDE 0.9% 1,000 ML IV SCH (21:00)
[2019-11-04] MEDS ORDERED: LACTULOSE 20 GM/30 ML UCUP ONE (21:05)
[2019-11-05] MEDS ORDERED: LACTULOSE 20 GM/30 ML UCUP ONE (00:04)
[2019-11-05 00:55] VITALS: BMI 35.2
[2019-11-05] MEDS: LACTULOSE 20 GM/30 ML UCUP PO SCH ×4 (01:00→09:00)
[2019-11-05] MEDS: allopurinoL 100 MG TAB PO SCH ×4 (01:39→20:12)
--- NOTE | 2019-11-05 03:58 | P.HP ---
Certification for Inpatient Patient admitted to: Inpatient With expected LOS: >2 Midnights Patient will require the following post-hospital care: None Practitioner: I am a practitioner with admitting privileges, knowledge of patient current condition, hospital course, and medical plan of care. Services: Services provided to patient in accordance with Admission requirements found in Title 42 Section 412.3 of the Code of Federal Regulations Patient History Date of Service: 11/04/19 Reason for admission: AMS History of Present Illness: Patient is a 68-year-old female who came to the hospital with altered mental status. She has history of cirrhosis, and in the emergency room she had workup done which revealed that she had an elevated ammonia level as well as the urinary tract infection. The was initially felt, best both of these were causing her altered mentation. She was only given 20 g of lactulose rectally as she would not take anything orally. She was spitting up every time she was given anything. She has had numerous bouts of diarrhea in the emergency room. The nurse feels she had 3-4. These bowel movements were very large. We will repeat ammonia level in the morning. Continue lactulose as ordered orally and if she does not taken orally tomorrow then we can repeat lactulose per rectum. Continue with antibiotics as well. I did see the patient afterwards and she was able to eat ice cream for me without any complications. Allergies Penicillins Allergy (Verified 11/05/19 03:02) Hives Home Medications: Gabapentin 300 mg PO BID 09/20/19 Omeprazole [Prilosec] 40 mg PO DAILY 09/20/19 Oxybutynin Chloride [Ditropan*] 5 mg PO TID 09/20/19 Spironolactone [Aldactone] 50 mg PO DAILY 09/20/19 Alendronate [Fosamax*] 10 mg PO DAILY 09/21/19 Cranberry 1,500 mg PO DAILY 09/21/19 Folic Acid 1 mg PO DAILY 09/21/19 Iron 65 mg PO BID 09/21/19 Metformin HCl [Glucophage*] 500 mg PO BIDWM 09/21/19 allopurinoL [Allopurinol] 100 mg PO BID 09/21/19 Furosemide [Lasix*] 20 mg PO DAILY #30 tab 09/25/19 Propranolol [Inderal*] 20 mg PO BID #30 tab 09/25/19 Levothyroxine Sodium [Synthroid] 200 mcg PO DAILY 11/05/19 - Past Medical/Surgical History Has patient received pneumonia vaccine in the past: Yes Diabetic: Yes -: HTN -: DM -: Hypothyroidism -: RA -: OA -: R Knee Replace -: Hysterectomy -: back sx - jul 2019 - Family History Mother Medical History: Diabetes Father Medical History: Hypertension, Other (see notes) Notes: RA - Social History Smoking Status: Never smoker Alcohol use: No CD- Drugs: No Place of Residence: Home Review of Systems 10-point ROS is otherwise unremarkable Physical Examination - Vital Signs Temperature: 97.3 F Blood Pressure: 111/70 Pulse: 83 Respirations: 15 Pulse Ox (%): 95 - Physical Exam General: Other (Lethargic but following commands) HEENT: Atraumatic, PERRLA, Mucous membr. moist/pink, EOMI, Sclerae nonicteric Neck: Supple, 2+ carotid pulse no bruit, No LAD, Without JVD or thyroid abnormality Respiratory: Clear to auscultation bilaterally, Normal air movement Cardiovascular: Regular rate/rhythm, Normal S1 S2, No murmurs Gastrointestinal: Normal bowel sounds, Soft and benign, Non-distended, No tenderness Musculoskeletal: No clubbing, No swelling, No tenderness Integumentary: No rashes Neurological: Normal tone, Sensation intact, Cranial nerves 3-12 intact, Abnormal gait, Abnormal speech, Abnormal strength, Abnormal affect Lymphatics: No axilla or inguinal lymphadenopathy - Studies Laboratory Data (last 24 hrs) 11/04/19 16:03: APTT 31.8 11/04/19 16:03: PT 13.7 H, INR 1.17 11/04/19 16:03: WBC 4.1 L, Hgb 12.9, Hct 38.9, Plt Count 63 L 11/04/19 16:03: Sodium 140, Potassium 3.9, BUN 21 H, Creatinine 1.30, Glucose 168 H, Magnesium 2.3, Total Bilirubin 1.6 H, AST 18, ALT 15, Alkaline Phosphatase 96 Assessment & Plan - Problems (Diagnosis) (1) Hepatic encephalopathy Current Visit: Yes Status: Acute (2) Toxic encephalopathy Current Visit: Yes Status: Acute (3) Hypothyroidism Current Visit: No Status: Acute (4) Rheumatoid arthritis Current Visit: No Status: Acute (5) Cirrhosis Onset Date: 11/02/17 Current Visit: No Status: Chronic Qualifiers: Hepatic cirrhosis type: unspecified biliary cirrhosis Qualified Code(s): K74.5 - Biliary cirrhosis, 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 Continue with lactulose 2. Continue IV antibiotics 3. Gentle hydration 4. Monitor labs closely 5. Neurochecks q.4 hr 6. If mentation does not improve may need further imaging studies 7. GI and DVT prophylaxis Discharge Plan: Home Plan to discharge in: Greater than 2 days - Advance Directives Does patient have a Living Will: No Does patient have a Durable POA for Healthcare: No - Code Status/Comfort Care Code Status Assessed: Yes Code Status: Full Code Critical Care: No Time Spent Managing PTS Care (In Minutes): 45
[2019-11-05 05:00] LABS: MPV 8.9 fL (7.6-11.3)
[2019-11-05 05:03] LABS: Protime INR 1.27
[2019-11-05 05:04] LABS: Absolute Lymphocytes (CBC) 0.4 K/uL (0.7-4.9); Basophils % 0.3 % (0-1.3); Lymphocytes % 12.2 % (15.3-44.8); RBC Red Blood Cell Count 3.06 M/uL (3.86-4.86)
[2019-11-05 05:17] LABS: Albumin 2.9 g/dL (3.4-5.0); Bilirubin Total 1.3 mg/dL (0.2-1.0); Potassium 3.4 mmol/L (3.5-5.1); Protein, Total 6.9 g/dL (6.4-8.2)
[2019-11-05] MEDS: LEVOTHYROXINE SOD 0.125 MG TAB PO SCH (05:25)
[2019-11-05] MEDS: Levofloxacin500mg IV 500 MG/100 ML BAG IV SCH (05:25)
[2019-11-05] MEDS: JUVEN PACKET PO SCH ×3 (08:00→20:49)
[2019-11-05] MEDS: PROPRANOLOL HCL 40 MG TAB PO SCH ×3 (08:54→20:12)
[2019-11-05] MEDS: Rifaximin 550 MG Tab PO SCH ×3 (08:55→20:16)
[2019-11-05] MEDS: FOLIC ACID 1 MG TABLET PO SCH (08:56)
[2019-11-05] MEDS: SPIRONOLACTONE 25 MG TABLET PO SCH (08:56)
[2019-11-05] MEDS: LACTULOSE 20 GM/30 ML UCUP PR SCH ×3 (10:15→17:14)
--- NOTE | 2019-11-05 10:57 | P.PN ---
Subjective Date of Service: 11/05/19 Chief Complaint: AMS Subjective: No new changes Patient remain confused. She spit out her medications. Nursing staff report patient had 2 diarrhea bowel movements in the ED. Physical Examination - Vital Signs Temperature: 97.2 F Blood Pressure: 114/58 Pulse: 83 Respirations: 18 Pulse Ox (%): 93 - Physical Exam General: In no apparent distress, Confused HEENT: Mucous membr. moist/pink Neck: Supple, JVD not distended Respiratory: Clear to auscultation bilaterally, Normal air movement Cardiovascular: No edema, Regular rate/rhythm, Normal S1 S2 Gastrointestinal: Normal bowel sounds, Soft and benign, No tenderness Musculoskeletal: No swelling Neurological: Other (Confused. She moves all extremities spontaneous.) - Studies Laboratory Data (last 24 hrs) 11/04/19 16:03: APTT 31.8 11/04/19 16:03: PT 13.7 H, INR 1.17 11/04/19 16:03: WBC 4.1 L, Hgb 12.9, Hct 38.9, Plt Count 63 L 11/04/19 16:03: Sodium 140, Potassium 3.9, BUN 21 H, Creatinine 1.30, Glucose 168 H, Magnesium 2.3, Total Bilirubin 1.6 H, AST 18, ALT 15, Alkaline Phosphatase 96 Assessment And Plan - Current Problems (Diagnosis) (1) Hepatic encephalopathy Current Visit: Yes Status: Acute (2) Acute cystitis without hematuria Current Visit: No Status: Acute (3) Hypothyroidism Current Visit: No Status: Chronic (4) Rheumatoid arthritis Current Visit: No Status: Chronic (5) Cirrhosis Onset Date: 11/02/17 Current Visit: No Status: Chronic Qualifiers: Hepatic cirrhosis type: unspecified biliary cirrhosis Qualified Code(s): K74.5 - Biliary cirrhosis, unspecified - Plan Keep lactulose rectally Continue Rifaximin, propanolol and aldactone. Crush medications and give in a sauce. Neuro checks Monitor blood pressure closely. Midodrine p.r.n. for hypotension. Daily serial ammonia level. Continue antibiotics and follow urine culture.
[2019-11-05 11:41] LABS: Magnesium 2.2 mg/dL (1.8-2.4); Phosphorus 2.1 mg/dL (2.5-4.9)
[2019-11-06] MEDS: LACTULOSE 20 GM/30 ML UCUP PR SCH ×2 (01:03→09:49)
[2019-11-06 04:13] LABS: Absolute Lymphocytes (CBC) 0.6 K/uL (0.7-4.9); Basophils % 0.6 % (0-1.3); Hematocrit 34.9 % (36.0-45.0); Lymphocytes % 15.5 % (15.3-44.8); MPV 8.7 fL (7.6-11.3); RBC Red Blood Cell Count 3.26 M/uL (3.86-4.86)
[2019-11-06 04:25] LABS: Potassium 3.3 mmol/L (3.5-5.1)
[2019-11-06] MEDS ORDERED: NA CHLORIDE 0.9% 100 ML ONE (05:08)
[2019-11-06] MEDS: Levofloxacin500mg IV 500 MG/100 ML BAG IV SCH (05:08)
[2019-11-06] MEDS: LEVOTHYROXINE SOD 0.125 MG TAB PO SCH (05:18)
[2019-11-06] MEDS: JUVEN PACKET PO SCH ×2 (09:00→21:00)
[2019-11-06] MEDS: FOLIC ACID 1 MG TABLET PO SCH (09:49)
[2019-11-06] MEDS: PROPRANOLOL HCL 40 MG TAB PO SCH ×2 (09:49→21:00)
[2019-11-06] MEDS: SPIRONOLACTONE 25 MG TABLET PO SCH (09:50)
[2019-11-06] MEDS: allopurinoL 100 MG TAB PO SCH ×2 (09:50→22:24)
[2019-11-06] MEDS: Rifaximin 550 MG Tab PO SCH ×2 (09:51→22:24)
--- NOTE | 2019-11-06 14:10 | P.PN ---
Subjective Date of Service: 11/06/19 Chief Complaint: AMS Patient is more awake and interactive today. Her ammonia level has decreased. Bradycardia noted. She is on propranolol for portal hypertension. Physical Examination - Vital Signs Temperature: 97.7 F Blood Pressure: 133/72 Pulse: 61 Respirations: 16 Pulse Ox (%): 94 - Physical Exam General: Oriented x2, Other (Awake) HEENT: Mucous membr. moist/pink, Sclerae nonicteric Neck: Supple, JVD not distended Respiratory: Clear to auscultation bilaterally, Normal air movement Cardiovascular: No edema, Regular rate/rhythm, Normal S1 S2 Gastrointestinal: Normal bowel sounds, Soft and benign, Non-distended, No tenderness Musculoskeletal: No swelling Integumentary: No rashes Neurological: Normal speech - Studies Microbiology Data (last 24 hrs): 11/04/19 16:31 Clean Catch Urine Grand Chain Count - Final >100,000 CFU/ML. 11/04/19 16:31 Clean Catch Urine - Final MIXED MADDIE. Assessment And Plan - Current Problems (Diagnosis) (1) Hepatic encephalopathy Current Visit: Yes Status: Acute (2) Acute cystitis without hematuria Current Visit: No Status: Acute (3) Hypothyroidism Current Visit: No Status: Chronic (4) Rheumatoid arthritis Current Visit: No Status: Chronic (5) Cirrhosis Onset Date: 11/02/17 Current Visit: No Status: Chronic Qualifiers: Hepatic cirrhosis type: unspecified biliary cirrhosis Qualified Code(s): K74.5 - Biliary cirrhosis, unspecified - Plan Resume oral lactulose Continue Rifaximin, and aldactone. Monitor heart rate closely. Continue propranolol with holding parameters. Neuro checks Monitor blood pressure closely. Midodrine p.r.n. for hypotension. Daily ammonia level. Urine culture: Mixed growth. Patient will complete 3 days of antibiotic for possible UTI. Daughter states patient uses wheelchair at home. PT and OT.
[2019-11-06] MEDS: LACTULOSE 20 GM/30 ML UCUP PO SCH ×2 (16:36→22:30)
--- NOTE | 2019-11-06 20:51 | EKG ---
Test Date: 2019-11-04 Test Time: 18:35:55 Front Line Supervisor: MERVAT MEASUREMENT RESULTS: Intervals: Rate: 76 GA: QRSD: 76 QT: 474 QTc: 533 [place]: P: GA: QRS: 2 T: 122 INTERPRETIVE STATEMENTS: Accelerated Junctional rhythm with occasional premature ventricular complexes Cannot rule out Anterior infarct, age undetermined Abnormal ECG Compared to ECG 09/20/2019 10:40:25 Accelerated junctional rhythm now present Ventricular premature complex(es) now present Sinus rhythm no longer present Myocardial infarct finding still present Electronically Signed On 11-06-19 20:47:04 VISUAL EFFECTS ARTIST by Jacob Duke
[2019-11-06] MEDS: IRON 65 MG PO SCH (21:00)
[2019-11-06] MEDS: OXYBUTYNIN CHLORIDE 5 MG TAB PO SCH (22:24)
[2019-11-07 05:36] LABS: Absolute Lymphocytes (CBC) 0.7 K/uL (0.7-4.9); Basophils % 0.4 % (0-1.3); Lymphocytes % 20.5 % (15.3-44.8); MPV 8.5 fL (7.6-11.3); RBC Red Blood Cell Count 3.26 M/uL (3.86-4.86)
[2019-11-07 05:44] LABS: Potassium 3.3 mmol/L (3.5-5.1)
[2019-11-07] MEDS: LACTULOSE 20 GM/30 ML UCUP PO SCH ×2 (06:25→14:04)
[2019-11-07] MEDS ORDERED: PANTOPRAZOLE 40MG TABLET PO SCH (06:30)
[2019-11-07] MEDS ORDERED: LEVOTHYROXINE SOD 0.1 MG TAB PO SCH (06:30)
[2019-11-07 08:14] VITALS: BP 108/53; TEMP 98.6
[2019-11-07] MEDS: IRON 65 MG PO SCH (09:00)
[2019-11-07] MEDS: PROPRANOLOL HCL 40 MG TAB PO SCH (09:00)
[2019-11-07] MEDS ORDERED: FUROSEMIDE 20 MG TABLET PO SCH (09:00)
[2019-11-07] MEDS: FOLIC ACID 1 MG TABLET PO SCH (09:10)
[2019-11-07] MEDS: JUVEN PACKET PO SCH (09:10)
[2019-11-07] MEDS: OXYBUTYNIN CHLORIDE 5 MG TAB PO SCH ×2 (09:10→14:04)
[2019-11-07] MEDS: SPIRONOLACTONE 25 MG TABLET PO SCH (09:10)
[2019-11-07] MEDS: allopurinoL 100 MG TAB PO SCH (09:10)
[2019-11-07] MEDS: Rifaximin 550 MG Tab PO SCH (09:10)
[2019-11-07 14:23] VITALS: O2SAT 94
[2019-11-07] MEDS ORDERED: POTASSIUM CL SA 10 MEQ TAB PO ONE (14:41)
--- NOTE | 2019-11-07 15:49 | P.DS ---
Admission Date: 11/04/19 Discharge Date: 11/07/19 Disposition: [facility] Discharge Condition: FAIR Reason for Admission: AMS Consultations: None - Problems (1) Hepatic encephalopathy Current Visit: Yes Status: Acute (2) Acute cystitis without hematuria Current Visit: No Status: Acute (3) Hypothyroidism Current Visit: No Status: Chronic (4) Rheumatoid arthritis Current Visit: No Status: Chronic (5) Cirrhosis Onset Date: 11/02/17 Current Visit: No Status: Chronic Qualifiers: Hepatic cirrhosis type: unspecified biliary cirrhosis Qualified Code(s): K74.5 - Biliary cirrhosis, unspecified Brief History of Present Illness: 68-year-old woman with a history of liver cirrhosis was brought to the emergency department due to altered mental status. Family states she underwent a procedure related to her liver about a week ago. Her ammonia level was significantly elevated to 106. Patient was confused, refusing medications, spitting off liquids with feeding attempts. She was given rectal lactulose after which patient had multiple bowel movements in the ED. She was admitted for further management of hepatic encephalopathy. Hospital Course: Patient admitted to the medical in giving scheduled lactulose rectally. She was also started on Rifaximin. She was taking propranolol and Aldactone which were continued during the hospital stay. Her urinalysis suggested the presence of UTI. Her mental status improved after she had several bowel movement. Her urine culture grew mixed tim. She completed 3 days of antibiotic treatment She later tolerated orally, and was able to take her pills and oral lactulose. Her mental status has improved back to baseline. She was seen by physical therapy and she was able to transfer and walk with minimal assistance. Patient is deemed clinically stable for discharge. Her lactulose has been increased to 30 mL 3 times a day. She is also prescribed Rifaximin. Vital Signs/Physical Exam: Temp Pulse Resp BP Pulse Ox 98.6 F 58 16 108/53 L 94 11/07/19 08:00 11/07/19 09:10 11/07/19 08:00 11/07/19 09:10 11/07/19 08:00 General: Alert, In no apparent distress HEENT: Mucous membr. moist/pink Neck: Supple, JVD not distended Respiratory: Clear to auscultation bilaterally, Normal air movement Cardiovascular: No edema, Regular rate/rhythm, Normal S1 S2 Gastrointestinal: Normal bowel sounds, Soft and benign, No tenderness Musculoskeletal: No swelling Integumentary: No rashes Neurological: Normal speech, Normal strength at 5/5 x4 extr Laboratory Data at Discharge: WBC 3.2 K/uL (4.3-10.9) L D 11/07/19 05:18 Hgb 11.6 g/dL (12.0-15.0) L 11/07/19 05:18 Hct 35.0 % (36.0-45.0) L 11/07/19 05:18 Plt Count 71 K/uL (152-406) L 11/07/19 05:18 PT 14.9 SECONDS (9.5-12.5) H 11/05/19 04:20 INR 1.27 11/05/19 04:20 APTT 30.8 SECONDS (24.3-36.9) 11/05/19 04:20 Sodium 142 mmol/L (136-145) 11/07/19 05:18 Potassium 3.3 mmol/L (3.5-5.1) L 11/07/19 05:18 BUN 12 mg/dL (7-18) 11/07/19 05:18 Creatinine 1.03 mg/dL (0.55-1.3) 11/07/19 05:18 Glucose 123 mg/dL (74-106) H 11/07/19 05:18 Phosphorus 2.1 mg/dL (2.5-4.9) L 11/05/19 11:16 Magnesium 2.2 mg/dL (1.8-2.4) 11/05/19 11:16 Total Bilirubin 1.3 mg/dL (0.2-1.0) H 11/05/19 04:20 AST 15 U/L (15-37) 11/05/19 04:20 ALT 13 U/L (12-78) 11/05/19 04:20 Alkaline Phosphatase 79 U/L (45-117) 11/05/19 04:20 Home Medications: Gabapentin 300 mg PO BID 09/20/19 Omeprazole [Prilosec] 40 mg PO DAILY 09/20/19 Oxybutynin Chloride [Ditropan*] 5 mg PO TID 09/20/19 Spironolactone [Aldactone] 50 mg PO DAILY 09/20/19 Alendronate [Fosamax*] 10 mg PO DAILY 09/21/19 Cranberry 1,500 mg PO DAILY 09/21/19 Folic Acid 1 mg PO DAILY 09/21/19 Iron 65 mg PO BID 09/21/19 Metformin HCl [Glucophage*] 500 mg PO BIDWM 09/21/19 allopurinoL [Allopurinol] 100 mg PO BID 09/21/19 Furosemide [Lasix*] 20 mg PO DAILY #30 tab 09/25/19 Propranolol [Inderal*] 20 mg PO BID #30 tab 09/25/19 Levothyroxine Sodium [Synthroid] 200 mcg PO DAILY 11/05/19 Lactulose [Cephulac*] 30 ml PO Q8H #1 bottle 11/07/19 Rifaximin [Xifaxan] 550 mg PO BID #60 tablet 11/07/19 New Medications: Lactulose [Cephulac*] 30 ml PO Q8H #1 bottle Rifaximin [Xifaxan] 550 mg PO BID #60 tablet Diet: Regular Activity: Fall precautions Time spent managing pt's care (in minutes): 37
[2019-11-07] MEDS ORDERED: Rifaximin 550 MG Tab PO SCH (21:00)
== END 2019-11-07 18:12 | disposition home health service (06) | DRG 441 ==
LOC: ER 15:40 → ERHOLD 20:56 → 4TH 22:48 → 2ND 11-06 15:37
PROVIDERS: ADMIT Hospitalist; ATTEND Internal Medicine
DX: K72.90 Hepatic failure, unspecified without coma (principal); G92 Toxic encephalopathy; N30.00 Acute cystitis without hematuria; E03.9 Hypothyroidism, unspecified; M06.9 Rheumatoid arthritis, unspecified; M05.00 Felty's syndrome, unspecified site; I10 Essential (primary) hypertension; E11.9 Type 2 diabetes mellitus without complications; K74.60 Unspecified cirrhosis of liver
CPT/HCPCS: 36415; 51702; 70450; 71045; 71260; 74177; 80048; 80053; 80076; 80307; 80320; 80329; 81003; 81015; 82140; 82947; 83605; 83735; 83880; 84100; 84145; 84484; 85025; 85610; 85730; 87040; 87086; 87088; 93005; 96361; 96365; 96366; 96368; 97116; 97161; 97530; 99285; J2270; J7030; J7040; Q9967

== ENCOUNTER 2020-07-23 15:35 | Emergency (ER) | payer OTHER ==
--- OUTSIDE RECORDS SUMMARY | 2020-07-23 15:38 | XMS REPORT | Continuity of Care Document ---
:1950 Author Organization [facility] t Address [address] [place] [address] Care Team Providers Name Role Phone Unavailable Unavailable Unavailable Payers Payer Name Policy Type Policy Number Effective Date Expiration Date S ource Problems This patient has no known problems. Allergies, Adverse Reactions, Alerts Allergy Allergy Status Severity Reaction(s) Onset Inactive Treating Comm ents Source Name Type Date Date Clinician Penicill DA Active MO 2018-11 [facility] ins 2-16 Clear 00:00: [place] [address] [place] [address] Medications This patient has no known medications. Procedures This patient has no known procedures. Results Test Description Test Time Test Comments Results Result Comments Source GLUCOSE BEDSIDE TESTING 2019-12-17 20:13:00 Test Item Value Reference Range Interpretation Comme nts GLUCOSE BEDSIDE TESTING (test code = GLUBED) 148 mg/dL 70-110 H CBC W/AUTO [id number] 07:35:00 Test Item Value Reference Range Interpretation Comments WHITE BLOOD CELL (test code = 2.4 K/mm3 3.5-11.0 LL WBC) RED BLOOD CELL (test code = RBC) 3.16 M/mm3 4.70-6.10 L HEMOGLOBIN (test code = HGB) 11.4 G/DL 10.4-14.9 N HEMATOCRIT (test code = HCT) 35.2 % 31.5-44.1 N MEAN CELL VOLUME (test code = 111.4 Fl 84.5-98.6 H MCV) MEAN CELL HGB (test code = MCH) 36.1 pg 27.0-34.2 H MEAN CELL HGB CONCETRATION (test 32.4 G/DL 31.5-34.0 N code = MCHC) RED CELL DISTRIBUTION WIDTH (test 14.5 SD 11.5-14.5 N code = RDW) PLATELET COUNT (test code = PLT) 59.0 K/mm3 150-450 L MEAN PLATELET VOLUME (test code = 10.10 fL 7.0-10.5 N MPV) NEUTROPHIL % (test code = NT%) 67.3 % 40-76 N LYMPHOCYTE % (test code = LY%) 18.1 % 20.5-51.1 L MONOCYTE % (test code = MO%) 10.8 % 1.7-9.3 H EOSINOPHIL % (test code = EO%) 3.4 % 0.0-6.0 N BASOPHIL % (test code = BA%) 0.4 % 0.0-2.0 N NEUTROPHIL # (test code = NT#) 1.56 K/mm3 1.8-7.6 L LYMPHOCYTE # (test code = LY#) 0.4 K/mm3 0.6-3.2 L MONOCYTE # (test code = MO#) 0.3 K/mm3 0.3-1.1 N EOSINOPHIL # (test code = EO#) 0.1 K/mm3 0.0-0.4 N BASOPHIL # (test code = BA#) 0.0 K/mm3 0.0-0.1 N MANUAL DIFF REQUIRED (test code = NO DIFF/SCN CRITERIA MDIFF) RBC [id number] 07:35:00 Test Item Value Reference Range Interpretation Comments PLATELET ESTIMATE ADEQUATE THOUSAND ADEQUATE PLT E ST (test code = PLTEST) 40,000- 60,000 PLATELET MORPHOLOGY NORMAL (test code = PLTMORPH) CBC W/AUTO [id number] 07:34:00 Test Item Value Reference Range Interpretation Comments WHITE BLOOD CELL (test code = 2.4 K/mm3 3.5-11.0 LL WBC) RED BLOOD CELL (test code = RBC) 3.16 M/mm3 4.70-6.10 L HEMOGLOBIN (test code = HGB) 11.4 G/DL 10.4-14.9 N HEMATOCRIT (test code = HCT) 35.2 % 31.5-44.1 N MEAN CELL VOLUME (test code = 111.4 Fl 84.5-98.6 H MCV) MEAN CELL HGB (test code = MCH) 36.1 pg 27.0-34.2 H MEAN CELL HGB CONCETRATION (test 32.4 G/DL 31.5-34.0 N code = MCHC) RED CELL DISTRIBUTION WIDTH (test 14.5 SD 11.5-14.5 N code = RDW) PLATELET COUNT (test code = PLT) 59.0 K/mm3 150-450 L MEAN PLATELET VOLUME (test code = 10.10 fL 7.0-10.5 N MPV) NEUTROPHIL % (test code = NT%) 67.3 % 40-76 N LYMPHOCYTE % (test code = LY%) 18.1 % 20.5-51.1 L MONOCYTE % (test code = MO%) 10.8 % 1.7-9.3 H EOSINOPHIL % (test code = EO%) 3.4 % 0.0-6.0 N BASOPHIL % (test code = BA%) 0.4 % 0.0-2.0 N NEUTROPHIL # (test code = NT#) 1.56 K/mm3 1.8-7.6 L LYMPHOCYTE # (test code = LY#) 0.4 K/mm3 0.6-3.2 L MONOCYTE # (test code = MO#) 0.3 K/mm3 0.3-1.1 N EOSINOPHIL # (test code = EO#) 0.1 K/mm3 0.0-0.4 N BASOPHIL # (test code = BA#) 0.0 K/mm3 0.0-0.1 N MANUAL DIFF REQUIRED (test code = NO DIFF/SCN CRITERIA MDIFF) CBC W/AUTO [id number] 07:34:00 Test Item Value Reference Range Interpretation Comments WHITE BLOOD CELL (test code = 2.4 K/mm3 3.5-11.0 LL WBC) RED BLOOD CELL (test code = RBC) 3.16 M/mm3 4.70-6.10 L HEMOGLOBIN (test code = HGB) 11.4 G/DL 10.4-14.9 N HEMATOCRIT (test code = HCT) 35.2 % 31.5-44.1 N MEAN CELL VOLUME (test code = 111.4 Fl 84.5-98.6 H MCV) MEAN CELL HGB (test code = MCH) 36.1 pg 27.0-34.2 H MEAN CELL HGB CONCETRATION (test 32.4 G/DL 31.5-34.0 N code = MCHC) RED CELL DISTRIBUTION WIDTH (test 14.5 SD 11.5-14.5 N code = RDW) PLATELET COUNT (test code = PLT) 59.0 K/mm3 150-450 L MEAN PLATELET VOLUME (test code = 10.10 fL 7.0-10.5 N MPV) NEUTROPHIL % (test code = NT%) 67.3 % 40-76 N LYMPHOCYTE % (test code = LY%) 18.1 % 20.5-51.1 L MONOCYTE % (test code = MO%) 10.8 % 1.7-9.3 H EOSINOPHIL % (test code = EO%) 3.4 % 0.0-6.0 N BASOPHIL % (test code = BA%) 0.4 % 0.0-2.0 N NEUTROPHIL # (test code = NT#) 1.56 K/mm3 1.8-7.6 L LYMPHOCYTE # (test code = LY#) 0.4 K/mm3 0.6-3.2 L MONOCYTE # (test code = MO#) 0.3 K/mm3 0.3-1.1 N EOSINOPHIL # (test code = EO#) 0.1 K/mm3 0.0-0.4 N BASOPHIL # (test code = BA#) 0.0 K/mm3 0.0-0.1 N MANUAL DIFF REQUIRED (test code = NO DIFF/SCN CRITERIA MDIFF) CBC W/AUTO [id number] 07:29:00 Test Item Value Reference Range Interpretation Comments WHITE BLOOD CELL (test code = WBC) 2.4 K/mm3 3.5-11.0 LL RED BLOOD CELL (test code = RBC) 3.16 M/mm3 4.70-6.10 L HEMOGLOBIN (test code = HGB) 11.4 G/DL 10.4-14.9 N HEMATOCRIT (test code = HCT) 35.2 % 31.5-44.1 N MEAN CELL VOLUME (test code = MCV) 111.4 Fl 84.5-98.6 H MEAN CELL HGB (test code = MCH) 36.1 pg 27.0-34.2 H MEAN CELL HGB CONCETRATION (test 32.4 G/DL 31.5-34.0 N code = MCHC) RED CELL DISTRIBUTION WIDTH (test 14.5 SD 11.5-14.5 N code = RDW) PLATELET COUNT (test code = PLT) 59.0 K/mm3 150-450 L MEAN PLATELET VOLUME (test code = 10.10 fL 7.0-10.5 N MPV) NEUTROPHIL % (test code = NT%) 67.3 % 40-76 N LYMPHOCYTE % (test code = LY%) 18.1 % 20.5-51.1 L MONOCYTE % (test code = MO%) 10.8 % 1.7-9.3 H EOSINOPHIL % (test code = EO%) 3.4 % 0.0-6.0 N BASOPHIL % (test code = BA%) 0.4 % 0.0-2.0 N NEUTROPHIL # (test code = NT#) 1.56 K/mm3 1.8-7.6 L LYMPHOCYTE # (test code = LY#) 0.4 K/mm3 0.6-3.2 L MONOCYTE # (test code = MO#) 0.3 K/mm3 0.3-1.1 N EOSINOPHIL # (test code = EO#) 0.1 K/mm3 0.0-0.4 N BASOPHIL # (test code = BA#) 0.0 K/mm3 0.0-0.1 N MANUAL DIFF REQUIRED (test code = DIFF/SCN CRITERIA MDIFF) CBC W/AUTO [id number] 04:54:00 Test Item Value Reference Range Interpretation Comments WHITE BLOOD CELL (test code = WBC) 2.4 K/mm3 3.5-11.0 LL RED BLOOD CELL (test code = RBC) 3.16 M/mm3 4.70-6.10 L HEMOGLOBIN (test code = HGB) 11.4 G/DL 10.4-14.9 N HEMATOCRIT (test code = HCT) 35.2 % 31.5-44.1 N MEAN CELL VOLUME (test code = MCV) 111.4 Fl 84.5-98.6 H MEAN CELL HGB (test code = MCH) 36.1 pg 27.0-34.2 H MEAN CELL HGB CONCETRATION (test 32.4 G/DL 31.5-34.0 N code = MCHC) RED CELL DISTRIBUTION WIDTH (test 14.5 SD 11.5-14.5 N code = RDW) PLATELET COUNT (test code = PLT) 59.0 K/mm3 150-450 L MEAN PLATELET VOLUME (test code = 10.10 fL 7.0-10.5 N MPV) NEUTROPHIL % (test code = NT%) % 40-76 N LYMPHOCYTE % (test code = LY%) % 20.5-51.1 L MONOCYTE % (test code = MO%) % 1.7-9.3 H EOSINOPHIL % (test code = EO%) % 0.0-6.0 N BASOPHIL % (test code = BA%) % 0.0-2.0 N NEUTROPHIL # (test code = NT#) K/mm3 1.8-7.6 L LYMPHOCYTE # (test code = LY#) K/mm3 0.6-3.2 L MONOCYTE # (test code = MO#) K/mm3 0.3-1.1 N EOSINOPHIL # (test code = EO#) K/mm3 0.0-0.4 N BASOPHIL # (test code = BA#) K/mm3 0.0-0.1 N MANUAL DIFF REQUIRED (test code = DIFF/SCN CRITERIA MDIFF) BASIC METABOLIC [id number] 04:41:00 Test Item Value Reference Range Interpretation Comments SODIUM (test code = NA) 143 mmol/L 134-147 N POTASSIUM (test code = 3.9 mmol/L 3.4-5.0 N K) CHLORIDE (test code = 111 mmol/L 100-108 H CL) CARBON DIOXIDE (test 28 mmol/L 21-32 N code = CO2) ANION GAP (test code = 4.0 GAP calc 4.0-15.0 N GAP) GLUCOSE (test code = 121 MG/DL 70-110 H GLU) BLOOD UREA NITROGEN 19 MG/DL 7-18 H (test code = BUN) GLOMERULAR FILTRATION >=60 max estimate >60 RATE (test code = GFR) estGFR CREATININE (test code = 0.8 MG/DL 0.6-1.0 N CREAT) CALCIUM (test code = CA) 7.7 MG/DL 8.5-10.1 L [id number] 04:41:00 Test Item Value Reference Range Interpretation Comments MAGNESIUM (test code = MAG) 2.4 MG/DL 1.8-2.4 N HGB [id number] 20:19:00 Test Item Value Reference Range Interpretation Comments HEMOGLOBIN (test code = HGB) 11.2 G/DL 10.4-14.9 N HEMATOCRIT (test code = HCT) 34.8 % 31.5-44.1 N CBC W/AUTO [id number] 15:20:00 Test Item Value Reference Range Interpretation Comments WHITE BLOOD CELL (test 2.1 K/mm3 3.5-11.0 LL code = WBC) RED BLOOD CELL (test 3.18 M/mm3 4.70-6.10 L code = RBC) HEMOGLOBIN (test code 11.5 G/DL 10.4-14.9 N = HGB) HEMATOCRIT (test code 35.3 % 31.5-44.1 N = HCT) MEAN CELL VOLUME (test 111.0 Fl 84.5-98.6 H code = MCV) MEAN CELL HGB (test 36.2 pg 27.0-34.2 H code = MCH) MEAN CELL HGB 32.6 G/DL 31.5-34.0 N CONCETRATION (test code = MCHC) RED CELL DISTRIBUTION 14.5 SD 11.5-14.5 N WIDTH (test code = RDW) PLATELET COUNT (test 59.0 K/mm3 150-450 L code = PLT) MEAN PLATELET VOLUME 11.30 fL 7.0-10.5 H (test code = MPV) NEUTROPHIL % (test 61.5 % 40-76 code = NT%) LYMPHOCYTE % (test 22.9 % 20.5-51.1 N code = LY%) MONOCYTE % (test code 11.7 % 1.7-9.3 H = MO%) EOSINOPHIL % (test 3.4 % 0.0-6.0 N code = EO%) BASOPHIL % (test code 0.5 % 0.0-2.0 N = BA%) NEUTROPHIL # (test 1.26 K/mm3 1.8-7.6 L code = NT#) LYMPHOCYTE # (test 0.5 K/mm3 0.6-3.2 L code = LY#) MONOCYTE # (test code 0.2 K/mm3 0.3-1.1 L = MO#) EOSINOPHIL # (test 0.1 K/mm3 0.0-0.4 N code = EO#) BASOPHIL # (test code 0.0 K/mm3 0.0-0.1 N = BA#) MANUAL DIFF REQUIRED NO DIFF/SCN CRITERIA SLIDE R EVIEW (test code = MDIFF) CONSISTA NT WITH AUTO DIFFERENTIAL. Comment: repeat cbc at 6 pm [facility] W/AUTO [id number] 15:20:00 Test Item Value Reference Range Interpretation Comments WHITE BLOOD CELL (test 2.1 K/mm3 3.5-11.0 LL code = WBC) RED BLOOD CELL (test 3.18 M/mm3 4.70-6.10 L code = RBC) HEMOGLOBIN (test code 11.5 G/DL 10.4-14.9 N = HGB) HEMATOCRIT (test code 35.3 % 31.5-44.1 N = HCT) MEAN CELL VOLUME (test 111.0 Fl 84.5-98.6 H code = MCV) MEAN CELL HGB (test 36.2 pg 27.0-34.2 H code = MCH) MEAN CELL HGB 32.6 G/DL 31.5-34.0 N CONCETRATION (test code = MCHC) RED CELL DISTRIBUTION 14.5 SD 11.5-14.5 N WIDTH (test code = RDW) PLATELET COUNT (test 59.0 K/mm3 150-450 L code = PLT) MEAN PLATELET VOLUME 11.30 fL 7.0-10.5 H (test code = MPV) NEUTROPHIL % (test 61.5 % 40-76 code = NT%) LYMPHOCYTE % (test 22.9 % 20.5-51.1 N code = LY%) MONOCYTE % (test code 11.7 % 1.7-9.3 H = MO%) EOSINOPHIL % (test 3.4 % 0.0-6.0 N code = EO%) BASOPHIL % (test code 0.5 % 0.0-2.0 N = BA%) NEUTROPHIL # (test 1.26 K/mm3 1.8-7.6 L code = NT#) LYMPHOCYTE # (test 0.5 K/mm3 0.6-3.2 L code = LY#) MONOCYTE # (test code 0.2 K/mm3 0.3-1.1 L = MO#) EOSINOPHIL # (test 0.1 K/mm3 0.0-0.4 N code = EO#) BASOPHIL # (test code 0.0 K/mm3 0.0-0.1 N = BA#) MANUAL DIFF REQUIRED NO DIFF/SCN CRITERIA SLIDE R EVIEW (test code = MDIFF) CONSISTA NT WITH AUTO DIFFERENTIAL. Comment: [facility] 6 [facility] [id number] 15:20:00 Test Item Value Reference Range Interpretation Comments PLATELET ESTIMATE DECREASED THOUSAND ADEQUATE PLAT ELET COUNT (test code = REVIEWED AND PLTEST) VERIFIED. PLATELET MORPHOLOGY NORMAL (test code = PLTMORPH) Comment: [facility] [id number] 15:20:00 Test Item Value Reference Range Interpretation Comments WHITE BLOOD CELL (test 2.1 K/mm3 3.5-11.0 LL code = WBC) RED BLOOD CELL (test 3.18 M/mm3 4.70-6.10 L code = RBC) HEMOGLOBIN (test code 11.5 G/DL 10.4-14.9 N = HGB) HEMATOCRIT (test code 35.3 % 31.5-44.1 N = HCT) MEAN CELL VOLUME (test 111.0 Fl 84.5-98.6 H code = MCV) MEAN CELL HGB (test 36.2 pg 27.0-34.2 H code = MCH) MEAN CELL HGB 32.6 G/DL 31.5-34.0 N CONCETRATION (test code = MCHC) RED CELL DISTRIBUTION 14.5 SD 11.5-14.5 N WIDTH (test code = RDW) PLATELET COUNT (test 59.0 K/mm3 150-450 L code = PLT) MEAN PLATELET VOLUME 11.30 fL 7.0-10.5 H (test code = MPV) NEUTROPHIL % (test 61.5 % 40-76 code = NT%) LYMPHOCYTE % (test 22.9 % 20.5-51.1 N code = LY%) MONOCYTE % (test code 11.7 % 1.7-9.3 H = MO%) EOSINOPHIL % (test 3.4 % 0.0-6.0 N code = EO%) BASOPHIL % (test code 0.5 % 0.0-2.0 N = BA%) NEUTROPHIL # (test 1.26 K/mm3 1.8-7.6 L code = NT#) LYMPHOCYTE # (test 0.5 K/mm3 0.6-3.2 L code = LY#) MONOCYTE # (test code 0.2 K/mm3 0.3-1.1 L = MO#) EOSINOPHIL # (test 0.1 K/mm3 0.0-0.4 N code = EO#) BASOPHIL # (test code 0.0 K/mm3 0.0-0.1 N = BA#) MANUAL DIFF REQUIRED NO DIFF/SCN CRITERIA SLIDE Nataly MILLS (test code = MDIFF) CONSISTA NT WITH AUTO DIFFERENTIAL. Comment: repeat cbc at 6 pm [facility] W/AUTO [id number] 15:18:00 Test Item Value Reference Range Interpretation Comments WHITE BLOOD CELL (test 2.1 K/mm3 3.5-11.0 LL code = WBC) RED BLOOD CELL (test 3.18 M/mm3 4.70-6.10 L code = RBC) HEMOGLOBIN (test code 11.5 G/DL 10.4-14.9 N = HGB) HEMATOCRIT (test code 35.3 % 31.5-44.1 N = HCT) MEAN CELL VOLUME (test 111.0 Fl 84.5-98.6 H code = MCV) MEAN CELL HGB (test 36.2 pg 27.0-34.2 H code = MCH) MEAN CELL HGB 32.6 G/DL 31.5-34.0 N CONCETRATION (test code = MCHC) RED CELL DISTRIBUTION 14.5 SD 11.5-14.5 N WIDTH (test code = RDW) PLATELET COUNT (test 59.0 K/mm3 150-450 L code = PLT) MEAN PLATELET VOLUME 11.30 fL 7.0-10.5 H (test code = MPV) NEUTROPHIL % (test 61.5 % 40-76 code = NT%) LYMPHOCYTE % (test 22.9 % 20.5-51.1 N code = LY%) MONOCYTE % (test code 11.7 % 1.7-9.3 H = MO%) EOSINOPHIL % (test 3.4 % 0.0-6.0 N code = EO%) BASOPHIL % (test code 0.5 % 0.0-2.0 N = BA%) NEUTROPHIL # (test 1.26 K/mm3 1.8-7.6 L code = NT#) LYMPHOCYTE # (test 0.5 K/mm3 0.6-3.2 L code = LY#) MONOCYTE # (test code 0.2 K/mm3 0.3-1.1 L = MO#) EOSINOPHIL # (test 0.1 K/mm3 0.0-0.4 N code = EO#) BASOPHIL # (test code 0.0 K/mm3 0.0-0.1 N = BA#) MANUAL DIFF REQUIRED NO DIFF/SCN CRITERIA SLIDE R GENE (test code = MDIFF) CONSISTA NT WITH AUTO DIFFERENTIAL. Comment: repeat cbc at 6 pm [facility] W/AUTO [id number] 14:15:00 Test Item Value Reference Range Interpretation Comments WHITE BLOOD CELL (test code = WBC) 2.1 K/mm3 3.5-11.0 LL RED BLOOD CELL (test code = RBC) 3.18 M/mm3 4.70-6.10 L HEMOGLOBIN (test code = HGB) 11.5 G/DL 10.4-14.9 N HEMATOCRIT (test code = HCT) 35.3 % 31.5-44.1 N MEAN CELL VOLUME (test code = MCV) 111.0 Fl 84.5-98.6 H MEAN CELL HGB (test code = MCH) 36.2 pg 27.0-34.2 H MEAN CELL HGB CONCETRATION (test 32.6 G/DL 31.5-34.0 N code = MCHC) RED CELL DISTRIBUTION WIDTH (test 14.5 SD 11.5-14.5 N code = RDW) PLATELET COUNT (test code = PLT) 59.0 K/mm3 150-450 L MEAN PLATELET VOLUME (test code = 11.30 fL 7.0-10.5 H MPV) NEUTROPHIL % (test code = NT%) % 40-76 LYMPHOCYTE % (test code = LY%) % 20.5-51.1 N MONOCYTE % (test code = MO%) % 1.7-9.3 H EOSINOPHIL % (test code = EO%) % 0.0-6.0 N BASOPHIL % (test code = BA%) % 0.0-2.0 N NEUTROPHIL # (test code = NT#) K/mm3 1.8-7.6 L LYMPHOCYTE # (test code = LY#) K/mm3 0.6-3.2 L MONOCYTE # (test code = MO#) K/mm3 0.3-1.1 L EOSINOPHIL # (test code = EO#) K/mm3 0.0-0.4 N BASOPHIL # (test code = BA#) K/mm3 0.0-0.1 N MANUAL DIFF REQUIRED (test code = DIFF/SCN CRITERIA MDIFF) Comment: repeat cbc at 6 pm today[facility] [id number] 12:24:00 Test Item Value Reference Range Interpretation Comments HEMOGLOBIN (test code = HGB) 11.5 G/DL 10.4-14.9 N HEMATOCRIT (test code = HCT) 35.3 % 31.5-44.1 N CBC W/AUTO [id number] 10:33:00 Test Item Value Reference Range Interpretation Comments WHITE BLOOD CELL (test 2.4 K/mm3 3.5-11.0 LL code = WBC) RED BLOOD CELL (test 3.21 M/mm3 4.70-6.10 L code = RBC) HEMOGLOBIN (test code 11.6 G/DL 10.4-14.9 N = HGB) HEMATOCRIT (test code 35.6 % 31.5-44.1 N = HCT) MEAN CELL VOLUME (test 110.9 Fl 84.5-98.6 H code = MCV) MEAN CELL HGB (test 36.1 pg 27.0-34.2 H code = MCH) MEAN CELL HGB 32.6 G/DL 31.5-34.0 N CONCETRATION (test code = MCHC) RED CELL DISTRIBUTION 14.3 SD 11.5-14.5 N WIDTH (test code = RDW) PLATELET COUNT (test 59.0 K/mm3 150-450 L code = PLT) MEAN PLATELET VOLUME 10.70 fL 7.0-10.5 H (test code = MPV) NEUTROPHIL % (test 70.6 % 40-76 N code = NT%) LYMPHOCYTE % (test 17.8 % 20.5-51.1 L code = LY%) MONOCYTE % (test code 9.5 % 1.7-9.3 H = MO%) EOSINOPHIL % (test 2.1 % 0.0-6.0 N code = EO%) BASOPHIL % (test code 0.0 % 0.0-2.0 N = BA%) NEUTROPHIL # (test 1.71 K/mm3 1.8-7.6 L code = NT#) LYMPHOCYTE # (test 0.4 K/mm3 0.6-3.2 L code = LY#) MONOCYTE # (test code 0.2 K/mm3 0.3-1.1 L = MO#) EOSINOPHIL # (test 0.1 K/mm3 0.0-0.4 N code = EO#) BASOPHIL # (test code 0.0 K/mm3 0.0-0.1 N = BA#) MANUAL DIFF REQUIRED NO DIFF/SCN CRITERIA SLIDE R GENE (test code = MDIFF) CONSISTA NT WITH AUTO DIFFERENTIAL. RBC [id number] 10:33:00 Test Item Value Reference Range Interpretation Comments PLATELET ESTIMATE DECREASED THOUSAND ADEQUATE JERAMY MATED (test code = PLATELET RANGE = PLTEST) 52,000 - 65,000 PLATELET MORPHOLOGY NORMAL (test code = PLTMORPH) CBC W/AUTO [id number] 10:31:00 Test Item Value Reference Range Interpretation Comments WHITE BLOOD CELL (test 2.4 K/mm3 3.5-11.0 LL code = WBC) RED BLOOD CELL (test 3.21 M/mm3 4.70-6.10 L code = RBC) HEMOGLOBIN (test code 11.6 G/DL 10.4-14.9 N = HGB) HEMATOCRIT (test code 35.6 % 31.5-44.1 N = HCT) MEAN CELL VOLUME (test 110.9 Fl 84.5-98.6 H code = MCV) MEAN CELL HGB (test 36.1 pg 27.0-34.2 H code = MCH) MEAN CELL HGB 32.6 G/DL 31.5-34.0 N CONCETRATION (test code = MCHC) RED CELL DISTRIBUTION 14.3 SD 11.5-14.5 N WIDTH (test code = RDW) PLATELET COUNT (test 59.0 K/mm3 150-450 L code = PLT) MEAN PLATELET VOLUME 10.70 fL 7.0-10.5 H (test code = MPV) NEUTROPHIL % (test 70.6 % 40-76 N code = NT%) LYMPHOCYTE % (test 17.8 % 20.5-51.1 L code = LY%) MONOCYTE % (test code 9.5 % 1.7-9.3 H = MO%) EOSINOPHIL % (test 2.1 % 0.0-6.0 N code = EO%) BASOPHIL % (test code 0.0 % 0.0-2.0 N = BA%) NEUTROPHIL # (test 1.71 K/mm3 1.8-7.6 L code = NT#) LYMPHOCYTE # (test 0.4 K/mm3 0.6-3.2 L code = LY#) MONOCYTE # (test code 0.2 K/mm3 0.3-1.1 L = MO#) EOSINOPHIL # (test 0.1 K/mm3 0.0-0.4 N code = EO#) BASOPHIL # (test code 0.0 K/mm3 0.0-0.1 N = BA#) MANUAL DIFF REQUIRED NO DIFF/SCN CRITERIA SLIDE R EVIEW (test code = MDIFF) CONSISTA NT WITH AUTO DIFFERENTIAL. CBC W/AUTO [id number] 10:31:00 Test Item Value Reference Range Interpretation Comments WHITE BLOOD CELL (test 2.4 K/mm3 3.5-11.0 LL code = WBC) RED BLOOD CELL (test 3.21 M/mm3 4.70-6.10 L code = RBC) HEMOGLOBIN (test code 11.6 G/DL 10.4-14.9 N = HGB) HEMATOCRIT (test code 35.6 % 31.5-44.1 N = HCT) MEAN CELL VOLUME (test 110.9 Fl 84.5-98.6 H code = MCV) MEAN CELL HGB (test 36.1 pg 27.0-34.2 H code = MCH) MEAN CELL HGB 32.6 G/DL 31.5-34.0 N CONCETRATION (test code = MCHC) RED CELL DISTRIBUTION 14.3 SD 11.5-14.5 N WIDTH (test code = RDW) PLATELET COUNT (test 59.0 K/mm3 150-450 L code = PLT) MEAN PLATELET VOLUME 10.70 fL 7.0-10.5 H (test code = MPV) NEUTROPHIL % (test 70.6 % 40-76 N code = NT%) LYMPHOCYTE % (test 17.8 % 20.5-51.1 L code = LY%) MONOCYTE % (test code 9.5 % 1.7-9.3 H = MO%) EOSINOPHIL % (test 2.1 % 0.0-6.0 N code = EO%) BASOPHIL % (test code 0.0 % 0.0-2.0 N = BA%) NEUTROPHIL # (test 1.71 K/mm3 1.8-7.6 L code = NT#) LYMPHOCYTE # (test 0.4 K/mm3 0.6-3.2 L code = LY#) MONOCYTE # (test code 0.2 K/mm3 0.3-1.1 L = MO#) EOSINOPHIL # (test 0.1 K/mm3 0.0-0.4 N code = EO#) BASOPHIL # (test code 0.0 K/mm3 0.0-0.1 N = BA#) MANUAL DIFF REQUIRED NO DIFF/SCN CRITERIA SLIDE R GENE (test code = MDIFF) CONSISTA NT WITH AUTO DIFFERENTIAL. PROTHROMBIN [id number] 08:49:00 Test Item Value Reference Range Interpretation Comments PT PATIENT (test code = PTP) 13.2 SECONDS 9.3-12.9 H INTERNATIONAL NORMAL RATIO 1.16 INR Unit 0.8-1.2 N (test code = INR) CBC W/AUTO [id number] 08:36:00 Test Item Value Reference Range Interpretation Comments WHITE BLOOD CELL (test code = WBC) 2.4 K/mm3 3.5-11.0 LL RED BLOOD CELL (test code = RBC) 3.21 M/mm3 4.70-6.10 L HEMOGLOBIN (test code = HGB) 11.6 G/DL 10.4-14.9 N HEMATOCRIT (test code = HCT) 35.6 % 31.5-44.1 N MEAN CELL VOLUME (test code = MCV) 110.9 Fl 84.5-98.6 H MEAN CELL HGB (test code = MCH) 36.1 pg 27.0-34.2 H MEAN CELL HGB CONCETRATION (test 32.6 G/DL 31.5-34.0 N code = MCHC) RED CELL DISTRIBUTION WIDTH (test 14.3 SD 11.5-14.5 N code = RDW) PLATELET COUNT (test code = PLT) 59.0 K/mm3 150-450 L MEAN PLATELET VOLUME (test code = 10.70 fL 7.0-10.5 H MPV) NEUTROPHIL % (test code = NT%) % 40-76 N LYMPHOCYTE % (test code = LY%) % 20.5-51.1 L MONOCYTE % (test code = MO%) % 1.7-9.3 H EOSINOPHIL % (test code = EO%) % 0.0-6.0 N BASOPHIL % (test code = BA%) % 0.0-2.0 N NEUTROPHIL # (test code = NT#) K/mm3 1.8-7.6 L LYMPHOCYTE # (test code = LY#) K/mm3 0.6-3.2 L MONOCYTE # (test code = MO#) K/mm3 0.3-1.1 L EOSINOPHIL # (test code = EO#) K/mm3 0.0-0.4 N BASOPHIL # (test code = BA#) K/mm3 0.0-0.1 N MANUAL DIFF REQUIRED (test code = DIFF/SCN CRITERIA MDIFF) GLUCOSE BEDSIDE [id number] 06:42:00 Test Item Value Reference Range Interpretation Comments GLUCOSE BEDSIDE TESTING (test code 139 mg/dL 70-110 H = GLUBED) [id number] 15:36:00 RUN DATE: 11/14/19 [facility] PAGE 1 RUN TIME: 1536 Specimen Inquiry RUN USER: INTERFACE PATIENT: VASU STONE LOC: Renaldo U #: [id number] AGE/SX: 68/F ROOM: [facility] RE10/30/19REG DR: Tyler Paz MD : [birth year] BED: 1 DIS: 11/02/19 STATUS: DIS IN TLOC: SPEC #: [id number] RECD: 11/02/19 STATUS: KONG ALLEN #: [id number] PASHA: 11/01/[address]: Tyler Paz MD ENTERED: 11/02/19 SP TYPE: SURG OTHR DR: Self Referred Sony March Jr, MD, Nizam Mohammad MDORDERED: SURG PATH LVL 4 COPIES TO: Self Referred Sony March Jr, MD [address] [facility] [address] [facility] [address] [place] [id number] [facility] [address] [place] [address] Nani Pinon MD [address] [place] [address] HISTOLOGY: TISSUE ID BLK PCS CURT LEV PROCEDURE DISPOSITION ____ ___ ___ ___ STOMACH, NOS A 1 2 PROCEDURES: SURG PATH LVL 4 (11/02/19) TISSUES: A. STOMACH, NOS - GASTRIC POLYPS CLINICAL HISTORY BLOOD CLOT SENT BY DR. PINON CPT CODES CPT CODE(S): 89475 , , , , , , CONTINUED ON NEXT PAGE --RUN DATE: 11/14/19 [facility] PAGE 2 RUN TIME: 1536 Specimen Inquiry RUN USER: INTERFACE SPEC #: [facility]:[id number] PATIENT: VASU STONE #[id number] (C ontinued) FINAL DIAGNOSIS Stomach, polypectomy: GASTRIC HYPERPLASTIC POLYPS NO EVIDENCE OF DYSPLASIA OR MALIGNANCY GROSS DESCRIPTION Gastric polyp. Received in formalin are multiple irregular fragments of craft-brown soft tissue admixed with dark brown blood clots, 3.0 x 2.5 x 0.3 cm in aggregate. The entire specimen submitted as A1 - A4. ba/nr Grossing performed at [facility] Pathology, [facility] [facility], [address], [place] [address]. Pipeline Welder: Enrrique Benavides MICROSCOPIC DESCRIPTION Gastric polyp. Large polypoid fragments of gastric mucosa with extensive foveolar hyperplasia and large dilated cystic glands lined by foveolar cells. There is focal surface erosion, vascular congestion, and hemorrhage. Mild chronic inflammation is identified. No evidence of significant atypia or malignancy. /cm Signed SIGNATURE ON FILE Ty Schrader Vinay 11/14/19 1536 END OFREPORT GLUCOSE BEDSIDE [id number] 16:51:00 Test Item Value Reference Range Interpretation Comments GLUCOSE BEDSIDE TESTING (test code 140 mg/dL 70-110 H = GLUBED) GLUCOSE BEDSIDE [id number] 12:31:00 Test Item Value Reference Range Interpretation Comments GLUCOSE BEDSIDE TESTING (test code 105 mg/dL 70-110 N = GLUBED) CBC W/AUTO [id number] 09:29:00 Test Item Value Reference Range Interpretation Comments WHITE BLOOD CELL (test 3.3 K/mm3 3.5-11.0 L code = WBC) RED BLOOD CELL (test 3.32 M/mm3 4.70-6.10 L code = RBC) HEMOGLOBIN (test code 12.1 G/DL 10.4-14.9 N = HGB) HEMATOCRIT (test code 37.3 % 31.5-44.1 N = HCT) MEAN CELL VOLUME (test 112.3 Fl 84.5-98.6 H code = MCV) MEAN CELL HGB (test 36.4 pg 27.0-34.2 H code = MCH) MEAN CELL HGB 32.4 G/DL 31.5-34.0 N CONCETRATION (test code = MCHC) RED CELL DISTRIBUTION 14.4 SD 11.5-14.5 N WIDTH (test code = RDW) PLATELET COUNT (test 58.0 K/mm3 150-450 L code = PLT) MEAN PLATELET VOLUME 10.10 fL 7.0-10.5 N (test code = MPV) NEUTROPHIL % (test 72.3 % 40-76 N code = NT%) LYMPHOCYTE % (test 16.9 % 20.5-51.1 L code = LY%) MONOCYTE % (test code 7.2 % 1.7-9.3 N = MO%) EOSINOPHIL % (test 3.3 % 0.0-6.0 N code = EO%) BASOPHIL % (test code 0.3 % 0.0-2.0 N = BA%) NEUTROPHIL # (test 2.40 K/mm3 1.8-7.6 N code = NT#) LYMPHOCYTE # (test 0.6 K/mm3 0.6-3.2 N code = LY#) MONOCYTE # (test code 0.2 K/mm3 0.3-1.1 L = MO#) EOSINOPHIL # (test 0.1 K/mm3 0.0-0.4 N code = EO#) BASOPHIL # (test code 0.0 K/mm3 0.0-0.1 N = BA#) MANUAL DIFF REQUIRED NO DIFF/SCN CRITERIA SLIDE R DENILSONW (test code = MDIFF) CONSISTA NT WITH AUTO DIFFERENTIAL. RBC [id number] 09:29:00 Test Item Value Reference Range Interpretation Comments PLATELET ESTIMATE MARKEDLY DECREASED ADEQUATE PLAT ELET COUNT (test code = THOUSAND ESTIMATE= 48,00 0 PLTEST) TO 60,000 PLATELET MORPHOLOGY NORMAL (test code = PLTMORPH) CBC W/AUTO [id number] 09:27:00 Test Item Value Reference Range Interpretation Comments WHITE BLOOD CELL (test 3.3 K/mm3 3.5-11.0 L code = WBC) RED BLOOD CELL (test 3.32 M/mm3 4.70-6.10 L code = RBC) HEMOGLOBIN (test code 12.1 G/DL 10.4-14.9 N = HGB) HEMATOCRIT (test code 37.3 % 31.5-44.1 N = HCT) MEAN CELL VOLUME (test 112.3 Fl 84.5-98.6 H code = MCV) MEAN CELL HGB (test 36.4 pg 27.0-34.2 H code = MCH) MEAN CELL HGB 32.4 G/DL 31.5-34.0 N CONCETRATION (test code = MCHC) RED CELL DISTRIBUTION 14.4 SD 11.5-14.5 N WIDTH (test code = RDW) PLATELET COUNT (test 58.0 K/mm3 150-450 L code = PLT) MEAN PLATELET VOLUME 10.10 fL 7.0-10.5 N (test code = MPV) NEUTROPHIL % (test 72.3 % 40-76 N code = NT%) LYMPHOCYTE % (test 16.9 % 20.5-51.1 L code = LY%) MONOCYTE % (test code 7.2 % 1.7-9.3 N = MO%) EOSINOPHIL % (test 3.3 % 0.0-6.0 N code = EO%) BASOPHIL % (test code 0.3 % 0.0-2.0 N = BA%) NEUTROPHIL # (test 2.40 K/mm3 1.8-7.6 N code = NT#) LYMPHOCYTE # (test 0.6 K/mm3 0.6-3.2 N code = LY#) MONOCYTE # (test code 0.2 K/mm3 0.3-1.1 L = MO#) EOSINOPHIL # (test 0.1 K/mm3 0.0-0.4 N code = EO#) BASOPHIL # (test code 0.0 K/mm3 0.0-0.1 N = BA#) MANUAL DIFF REQUIRED NO DIFF/SCN CRITERIA SLIDE R EVIEW (test code = MDIFF) CONSISTA NT WITH AUTO DIFFERENTIAL. CBC W/AUTO [id number] 09:27:00 Test Item Value Reference Range Interpretation Comments WHITE BLOOD CELL (test 3.3 K/mm3 3.5-11.0 L code = WBC) RED BLOOD CELL (test 3.32 M/mm3 4.70-6.10 L code = RBC) HEMOGLOBIN (test code 12.1 G/DL 10.4-14.9 N = HGB) HEMATOCRIT (test code 37.3 % 31.5-44.1 N = HCT) MEAN CELL VOLUME (test 112.3 Fl 84.5-98.6 H code = MCV) MEAN CELL HGB (test 36.4 pg 27.0-34.2 H code = MCH) MEAN CELL HGB 32.4 G/DL 31.5-34.0 N CONCETRATION (test code = MCHC) RED CELL DISTRIBUTION 14.4 SD 11.5-14.5 N WIDTH (test code = RDW) PLATELET COUNT (test 58.0 K/mm3 150-450 L code = PLT) MEAN PLATELET VOLUME 10.10 fL 7.0-10.5 N (test code = MPV) NEUTROPHIL % (test 72.3 % 40-76 N code = NT%) LYMPHOCYTE % (test 16.9 % 20.5-51.1 L code = LY%) MONOCYTE % (test code 7.2 % 1.7-9.3 N = MO%) EOSINOPHIL % (test 3.3 % 0.0-6.0 N code = EO%) BASOPHIL % (test code 0.3 % 0.0-2.0 N = BA%) NEUTROPHIL # (test 2.40 K/mm3 1.8-7.6 N code = NT#) LYMPHOCYTE # (test 0.6 K/mm3 0.6-3.2 N code = LY#) MONOCYTE # (test code 0.2 K/mm3 0.3-1.1 L = MO#) EOSINOPHIL # (test 0.1 K/mm3 0.0-0.4 N code = EO#) BASOPHIL # (test code 0.0 K/mm3 0.0-0.1 N = BA#) MANUAL DIFF REQUIRED NO DIFF/SCN CRITERIA SLIDE R DENILSONW (test code = MDIFF) CONSISTA NT WITH AUTO DIFFERENTIAL. GLUCOSE BEDSIDE [id number] 08:43:00 Test Item Value Reference Range Interpretation Comments GLUCOSE BEDSIDE TESTING (test code = 92 mg/dL 70-110 N GLUBED) COMPREHENSIVE METABOLIC [id number] 08:12:00 Test Item Value Reference Range Interpretation Comments SODIUM (test code = NA) 140 mmol/L 134-147 N POTASSIUM (test code = K) 4.2 mmol/L 3.4-5.0 N CHLORIDE (test code = CL) 100 mmol/L 100-108 N CARBON DIOXIDE (test code = CO2) 36 mmol/L 21-32 H ANION GAP (test code = GAP) 4.0 GAP calc 4.0-15.0 N GLUCOSE (test code = GLU) 113 MG/DL 70-110 H BLOOD UREA NITROGEN (test code = 19 MG/DL 7-18 H BUN) GLOMERULAR FILTRATION RATE (test 59 estGFR >60 L code = GFR) CREATININE (test code = CREAT) 1.0 MG/DL 0.6-1.0 N TOTAL PROTEIN (test code = PROT) 7.3 G/DL 6.4-8.2 N ALBUMIN (test code = ALB) 3.0 G/DL 3.4-5.0 L GLOBULIN (test code = GLOB) 4.3 GM/dL ALBUMIN/GLOBULIN RATIO (test 0.7 RATIO 1.2-2.2 L code = A/G) CALCIUM (test code = CA) 7.7 MG/DL 8.5-10.1 L BILIRUBIN TOTAL (test code = 1.80 MG/DL 0.2-1.2 H BILT) SGOT/AST (test code = AST) 16 Unit/L 15-37 N SGPT/ALT (test code = ALT) 9 Unit/L 12-78 L ALKALINE PHOSPHATASE TOTAL (test 90 Unit/L 45-117 N code = ALKP) [id number] 08:12:00 Test Item Value Reference Range Interpretation Comments MAGNESIUM (test code = MAG) 2.2 MG/DL 1.8-2.4 N CBC W/AUTO [id number] 08:03:00 Test Item Value Reference Range Interpretation Comments WHITE BLOOD CELL (test code = WBC) 3.3 K/mm3 3.5-11.0 L RED BLOOD CELL (test code = RBC) 3.32 M/mm3 4.70-6.10 L HEMOGLOBIN (test code = HGB) 12.1 G/DL 10.4-14.9 N HEMATOCRIT (test code = HCT) 37.3 % 31.5-44.1 N MEAN CELL VOLUME (test code = MCV) 112.3 Fl 84.5-98.6 H MEAN CELL HGB (test code = MCH) 36.4 pg 27.0-34.2 H MEAN CELL HGB CONCETRATION (test 32.4 G/DL 31.5-34.0 N code = MCHC) RED CELL DISTRIBUTION WIDTH (test 14.4 SD 11.5-14.5 N code = RDW) PLATELET COUNT (test code = PLT) 58.0 K/mm3 150-450 L MEAN PLATELET VOLUME (test code = 10.10 fL 7.0-10.5 N MPV) NEUTROPHIL % (test code = NT%) % 40-76 N LYMPHOCYTE % (test code = LY%) % 20.5-51.1 L MONOCYTE % (test code = MO%) % 1.7-9.3 N EOSINOPHIL % (test code = EO%) % 0.0-6.0 N BASOPHIL % (test code = BA%) % 0.0-2.0 N NEUTROPHIL # (test code = NT#) K/mm3 1.8-7.6 N LYMPHOCYTE # (test code = LY#) K/mm3 0.6-3.2 N MONOCYTE # (test code = MO#) K/mm3 0.3-1.1 L EOSINOPHIL # (test code = EO#) K/mm3 0.0-0.4 N BASOPHIL # (test code = BA#) K/mm3 0.0-0.1 N MANUAL DIFF REQUIRED (test code = DIFF/SCN CRITERIA MDIFF) GLUCOSE BEDSIDE [id number] 20:32:00 Test Item Value Reference Range Interpretation Comments GLUCOSE BEDSIDE TESTING (test code 104 mg/dL 70-110 N = GLUBED) HGB [id number] 17:25:00 Test Item Value Reference Range Interpretation Comments HEMOGLOBIN (test code = HGB) 12.2 G/DL 10.4-14.9 N HEMATOCRIT (test code = HCT) 38.3 % 31.5-44.1 N GLUCOSE BEDSIDE [id number] 16:58:00 Test Item Value Reference Range Interpretation Comments GLUCOSE BEDSIDE TESTING (test code 112 mg/dL 70-110 H = GLUBED) GLUCOSE BEDSIDE [id number] 12:16:00 Test Item Value Reference Range Interpretation Comments GLUCOSE BEDSIDE TESTING (test code 126 mg/dL 70-110 H = GLUBED) GLUCOSE BEDSIDE [id number] 08:20:00 Test Item Value Reference Range Interpretation Comments GLUCOSE BEDSIDE TESTING (test code 117 mg/dL 70-110 H = GLUBED) HGB [id number] 04:55:00 Test Item Value Reference Range Interpretation Comments HEMOGLOBIN (test code = HGB) 12.0 G/DL 10.4-14.9 N HEMATOCRIT (test code = HCT) 37.9 % 31.5-44.1 N GLUCOSE BEDSIDE [id number] 22:31:00 Test Item Value Reference Range Interpretation Comments GLUCOSE BEDSIDE TESTING (test code 139 mg/dL 70-110 H = GLUBED) GLUCOSE BEDSIDE [id number] 17:24:00 Test Item Value Reference Range Interpretation Comments GLUCOSE BEDSIDE TESTING (test code 124 mg/dL 70-110 H = GLUBED) HGB [id number] 16:27:00 Test Item Value Reference Range Interpretation Comments HEMOGLOBIN (test code = HGB) 12.4 G/DL 10.4-14.9 N HEMATOCRIT (test code = HCT) 38.9 % 31.5-44.1 N GLUCOSE BEDSIDE [id number] 11:27:00 Test Item Value Reference Range Interpretation Comments GLUCOSE BEDSIDE TESTING (test code 140 mg/dL 70-110 H = GLUBED) GLUCOSE BEDSIDE [id number] 08:50:00 Test Item Value Reference Range Interpretation Comments GLUCOSE BEDSIDE TESTING (test code 111 mg/dL 70-110 H = GLUBED) CBC W/AUTO [id number] 05:05:00 Test Item Value Reference Range Interpretation Comments WHITE BLOOD CELL (test 2.9 K/mm3 3.5-11.0 L code = WBC) RED BLOOD CELL (test 3.47 M/mm3 4.70-6.10 L code = RBC) HEMOGLOBIN (test code = 12.8 G/DL 10.4-14.9 N HGB) HEMATOCRIT (test code = 38.7 % 31.5-44.1 N HCT) MEAN CELL VOLUME (test 111.5 Fl 84.5-98.6 H code = MCV) MEAN CELL HGB (test 36.9 pg 27.0-34.2 H code = MCH) MEAN CELL HGB 33.1 G/DL 31.5-34.0 N CONCETRATION (test code = MCHC) RED CELL DISTRIBUTION 14.6 SD 11.5-14.5 H WIDTH (test code = RDW) PLATELET COUNT (test 60.0 K/mm3 150-450 L code = PLT) MEAN PLATELET VOLUME 10.20 fL 7.0-10.5 N (test code = MPV) NEUTROPHIL % (test code 63.1 % 40-76 = NT%) LYMPHOCYTE % (test code 23.1 % 20.5-51.1 N = LY%) MONOCYTE % (test code = 9.7 % 1.7-9.3 H MO%) EOSINOPHIL % (test code 3.4 % 0.0-6.0 N = EO%) BASOPHIL % (test code = 0.7 % 0.0-2.0 N BA%) NEUTROPHIL # (test code 1.83 K/mm3 1.8-7.6 N = NT#) LYMPHOCYTE # (test code 0.7 K/mm3 0.6-3.2 N = LY#) MONOCYTE # (test code = 0.3 K/mm3 0.3-1.1 N MO#) EOSINOPHIL # (test code 0.1 K/mm3 0.0-0.4 N = EO#) BASOPHIL # (test code = 0.0 K/mm3 0.0-0.1 N BA#) MANUAL DIFF REQUIRED NO DIFF/SCN CRITERIA PLATELE T COUNT (test code = MDIFF) REVIEWED AND VERIFIED. COMPREHENSIVE METABOLIC [id number] 04:30:00 Test Item Value Reference Range Interpretation Comments SODIUM (test code = NA) 140 mmol/L 134-147 N POTASSIUM (test code = K) 4.5 mmol/L 3.4-5.0 N CHLORIDE (test code = CL) 105 mmol/L 100-108 N CARBON DIOXIDE (test code = CO2) 31 mmol/L 21-32 N ANION GAP (test code = GAP) 4.0 GAP calc 4.0-15.0 N GLUCOSE (test code = GLU) 121 MG/DL 70-110 H BLOOD UREA NITROGEN (test code = 24 MG/DL 7-18 H BUN) GLOMERULAR FILTRATION RATE (test 52 estGFR >60 L code = GFR) CREATININE (test code = CREAT) 1.1 MG/DL 0.6-1.0 H TOTAL PROTEIN (test code = PROT) 6.9 G/DL 6.4-8.2 N ALBUMIN (test code = ALB) 2.7 G/DL 3.4-5.0 L GLOBULIN (test code = GLOB) 4.2 GM/dL ALBUMIN/GLOBULIN RATIO (test 0.6 RATIO 1.2-2.2 L code = A/G) CALCIUM (test code = CA) 7.9 MG/DL 8.5-10.1 L BILIRUBIN TOTAL (test code = 1.10 MG/DL 0.2-1.2 N BILT) SGOT/AST (test code = AST) 17 Unit/L 15-37 N SGPT/ALT (test code = ALT) 13 Unit/L 12-78 N ALKALINE PHOSPHATASE TOTAL (test 86 Unit/L 45-117 N code = ALKP) PROTHROMBIN [id number] 04:27:00 Test Item Value Reference Range Interpretation Comments PT PATIENT (test code = PTP) 13.7 SECONDS 9.3-12.9 H INTERNATIONAL NORMAL RATIO 1.21 INR Unit 0.8-1.2 H (test code = INR) CBC W/AUTO [id number] 04:17:00 Test Item Value Reference Range Interpretation Comments WHITE BLOOD CELL (test code = WBC) 2.9 K/mm3 3.5-11.0 L RED BLOOD CELL (test code = RBC) 3.47 M/mm3 4.70-6.10 L HEMOGLOBIN (test code = HGB) 12.8 G/DL 10.4-14.9 N HEMATOCRIT (test code = HCT) 38.7 % 31.5-44.1 N MEAN CELL VOLUME (test code = MCV) 111.5 Fl 84.5-98.6 H MEAN CELL HGB (test code = MCH) 36.9 pg 27.0-34.2 H MEAN CELL HGB CONCETRATION (test 33.1 G/DL 31.5-34.0 N code = MCHC) RED CELL DISTRIBUTION WIDTH (test 14.6 SD 11.5-14.5 H code = RDW) PLATELET COUNT (test code = PLT) 60.0 K/mm3 150-450 L MEAN PLATELET VOLUME (test code = 10.20 fL 7.0-10.5 N MPV) NEUTROPHIL % (test code = NT%) % 40-76 LYMPHOCYTE % (test code = LY%) % 20.5-51.1 N MONOCYTE % (test code = MO%) % 1.7-9.3 H EOSINOPHIL % (test code = EO%) % 0.0-6.0 N BASOPHIL % (test code = BA%) % 0.0-2.0 N NEUTROPHIL # (test code = NT#) K/mm3 1.8-7.6 N LYMPHOCYTE # (test code = LY#) K/mm3 0.6-3.2 N MONOCYTE # (test code = MO#) K/mm3 0.3-1.1 N EOSINOPHIL # (test code = EO#) K/mm3 0.0-0.4 N BASOPHIL # (test code = BA#) K/mm3 0.0-0.1 N MANUAL DIFF REQUIRED (test code = DIFF/SCN CRITERIA MDIFF) - US ABDOMEN [id number] 00:11:00 Name: VASU STONE [facility] : 08/23/1951 Age/S: 68 / F [address] [address] Unit #: [id number] Loc: [place] [address] Phys: Tyler Paz MD Acct: [id number] Dis Date: Status: ADM IN PHONE #: [phone] Exam Date: 10/30/2019 2200 FAX #: Reason: ASCITIS? EXAMS: CPT: [id number] US ABDOMEN COMPLETE [id number] Examination: Abdominal ultrasound Location code: S17 Comparison: [...] M.D. CC: Sony Hager MD; Tyler Paz MD; Nani Pinon MD; Rodolfo Cardenas MD Technologist: Arlyn Diaz RDMS Trniab Date/Time: 10/31/2019 (0011) [id number] PAGE 1 Signed Report Name: VASU STONE [place] : 08/23/1951 Age/S: 68 / F [address] [address] Unit #: [id number]: [place] [address] Phys: Tyler Paz MD Acct: [id number] Dis Date: Status: ADM IN PHONE #: [phone] Exam Date: 10/30/2019 2200 FAX #: Reason: ASCITIS? EXAMS: CPT: [id number] US ABDOMEN COMPLETE [id number] <Continued> Orig Print D/T: S: 10/31/2019 (0015) Probe: PAGE 2 Signed ReportGLUCOSE BEDSIDE [id number] 22:51:00 Test Item Value Reference Range Interpretation Comments GLUCOSE BEDSIDE TESTING (test code 120 mg/dL 70-110 H = GLUBED) CBC W/AUTO [id number] 17:47:00 Test Item Value Reference Range Interpretation Comments WHITE BLOOD CELL (test 3.3 K/mm3 3.5-11.0 L code = WBC) RED BLOOD CELL (test 3.56 M/mm3 4.70-6.10 L code = RBC) HEMOGLOBIN (test code 13.2 G/DL 10.4-14.9 N = HGB) HEMATOCRIT (test code 39.7 % 31.5-44.1 N = HCT) MEAN CELL VOLUME (test 111.5 Fl 84.5-98.6 H code = MCV) MEAN CELL HGB (test 37.1 pg 27.0-34.2 H code = MCH) MEAN CELL HGB 33.2 G/DL 31.5-34.0 N CONCETRATION (test code = MCHC) RED CELL DISTRIBUTION 14.4 SD 11.5-14.5 N WIDTH (test code = RDW) PLATELET COUNT (test 60.0 K/mm3 150-450 L code = PLT) MEAN PLATELET VOLUME 10.50 fL 7.0-10.5 N (test code = MPV) NEUTROPHIL % (test 70.7 % 40-76 N code = NT%) LYMPHOCYTE % (test 18.8 % 20.5-51.1 L code = LY%) MONOCYTE % (test code 6.8 % 1.7-9.3 N = MO%) EOSINOPHIL % (test 3.1 % 0.0-6.0 N code = EO%) BASOPHIL % (test code 0.6 % 0.0-2.0 N = BA%) NEUTROPHIL # (test 2.30 K/mm3 1.8-7.6 N code = NT#) LYMPHOCYTE # (test 0.6 K/mm3 0.6-3.2 N code = LY#) MONOCYTE # (test code 0.2 K/mm3 0.3-1.1 L = MO#) EOSINOPHIL # (test 0.1 K/mm3 0.0-0.4 N code = EO#) BASOPHIL # (test code 0.0 K/mm3 0.0-0.1 N = BA#) MANUAL DIFF REQUIRED NO DIFF/SCN CRITERIA SLIDE R DENILSONW (test code = MDIFF) CONSISTA NT WITH AUTO DIFFERENTIAL. RBC [id number] 17:47:00 Test Item Value Reference Range Interpretation Comments PLATELET ESTIMATE DECREASED THOUSAND ADEQUATE PLAT ELET ESTIMATE (test code = 64,000 TO 80,00 0 PLTEST) PLATELET MORPHOLOGY NORMAL (test code = PLTMORPH) CBC W/AUTO [id number] 17:46:00 Test Item Value Reference Range Interpretation Comments WHITE BLOOD CELL (test 3.3 K/mm3 3.5-11.0 L code = WBC) RED BLOOD CELL (test 3.56 M/mm3 4.70-6.10 L code = RBC) HEMOGLOBIN (test code 13.2 G/DL 10.4-14.9 N = HGB) HEMATOCRIT (test code 39.7 % 31.5-44.1 N = HCT) MEAN CELL VOLUME (test 111.5 Fl 84.5-98.6 H code = MCV) MEAN CELL HGB (test 37.1 pg 27.0-34.2 H code = MCH) MEAN CELL HGB 33.2 G/DL 31.5-34.0 N CONCETRATION (test code = MCHC) RED CELL DISTRIBUTION 14.4 SD 11.5-14.5 N WIDTH (test code = RDW) PLATELET COUNT (test 60.0 K/mm3 150-450 L code = PLT) MEAN PLATELET VOLUME 10.50 fL 7.0-10.5 N (test code = MPV) NEUTROPHIL % (test 70.7 % 40-76 N code = NT%) LYMPHOCYTE % (test 18.8 % 20.5-51.1 L code = LY%) MONOCYTE % (test code 6.8 % 1.7-9.3 N = MO%) EOSINOPHIL % (test 3.1 % 0.0-6.0 N code = EO%) BASOPHIL % (test code 0.6 % 0.0-2.0 N = BA%) NEUTROPHIL # (test 2.30 K/mm3 1.8-7.6 N code = NT#) LYMPHOCYTE # (test 0.6 K/mm3 0.6-3.2 N code = LY#) MONOCYTE # (test code 0.2 K/mm3 0.3-1.1 L = MO#) EOSINOPHIL # (test 0.1 K/mm3 0.0-0.4 N code = EO#) BASOPHIL # (test code 0.0 K/mm3 0.0-0.1 N = BA#) MANUAL DIFF REQUIRED NO DIFF/SCN CRITERIA SLIDE Nataly MILLS (test code = MDIFF) CONSISTA NT WITH AUTO DIFFERENTIAL. CBC W/AUTO [id number] 17:46:00 Test Item Value Reference Range Interpretation Comments WHITE BLOOD CELL (test 3.3 K/mm3 3.5-11.0 L code = WBC) RED BLOOD CELL (test 3.56 M/mm3 4.70-6.10 L code = RBC) HEMOGLOBIN (test code 13.2 G/DL 10.4-14.9 N = HGB) HEMATOCRIT (test code 39.7 % 31.5-44.1 N = HCT) MEAN CELL VOLUME (test 111.5 Fl 84.5-98.6 H code = MCV) MEAN CELL HGB (test 37.1 pg 27.0-34.2 H code = MCH) MEAN CELL HGB 33.2 G/DL 31.5-34.0 N CONCETRATION (test code = MCHC) RED CELL DISTRIBUTION 14.4 SD 11.5-14.5 N WIDTH (test code = RDW) PLATELET COUNT (test 60.0 K/mm3 150-450 L code = PLT) MEAN PLATELET VOLUME 10.50 fL 7.0-10.5 N (test code = MPV) NEUTROPHIL % (test 70.7 % 40-76 N code = NT%) LYMPHOCYTE % (test 18.8 % 20.5-51.1 L code = LY%) MONOCYTE % (test code 6.8 % 1.7-9.3 N = MO%) EOSINOPHIL % (test 3.1 % 0.0-6.0 N code = EO%) BASOPHIL % (test code 0.6 % 0.0-2.0 N = BA%) NEUTROPHIL # (test 2.30 K/mm3 1.8-7.6 N code = NT#) LYMPHOCYTE # (test 0.6 K/mm3 0.6-3.2 N code = LY#) MONOCYTE # (test code 0.2 K/mm3 0.3-1.1 L = MO#) EOSINOPHIL # (test 0.1 K/mm3 0.0-0.4 N code = EO#) BASOPHIL # (test code 0.0 K/mm3 0.0-0.1 N = BA#) MANUAL DIFF REQUIRED NO DIFF/SCN CRITERIA SLIDE R GENE (test code = MDIFF) CONSISTA NT WITH AUTO DIFFERENTIAL. CBC W/AUTO [id number] 16:20:00 Test Item Value Reference Range Interpretation Comments WHITE BLOOD CELL (test code = WBC) 3.3 K/mm3 3.5-11.0 L RED BLOOD CELL (test code = RBC) 3.56 M/mm3 4.70-6.10 L HEMOGLOBIN (test code = HGB) 13.2 G/DL 10.4-14.9 N HEMATOCRIT (test code = HCT) 39.7 % 31.5-44.1 N MEAN CELL VOLUME (test code = MCV) 111.5 Fl 84.5-98.6 H MEAN CELL HGB (test code = MCH) 37.1 pg 27.0-34.2 H MEAN CELL HGB CONCETRATION (test 33.2 G/DL 31.5-34.0 N code = MCHC) RED CELL DISTRIBUTION WIDTH (test 14.4 SD 11.5-14.5 N code = RDW) PLATELET COUNT (test code = PLT) 60.0 K/mm3 150-450 L MEAN PLATELET VOLUME (test code = 10.50 fL 7.0-10.5 N MPV) NEUTROPHIL % (test code = NT%) % 40-76 N LYMPHOCYTE % (test code = LY%) % 20.5-51.1 L MONOCYTE % (test code = MO%) % 1.7-9.3 N EOSINOPHIL % (test code = EO%) % 0.0-6.0 N BASOPHIL % (test code = BA%) % 0.0-2.0 N NEUTROPHIL # (test code = NT#) K/mm3 1.8-7.6 N LYMPHOCYTE # (test code = LY#) K/mm3 0.6-3.2 N MONOCYTE # (test code = MO#) K/mm3 0.3-1.1 L EOSINOPHIL # (test code = EO#) K/mm3 0.0-0.4 N BASOPHIL # (test code = BA#) K/mm3 0.0-0.1 N MANUAL DIFF REQUIRED (test code = DIFF/SCN CRITERIA MDIFF) BASIC METABOLIC [id number] 16:04:00 Test Item Value Reference Range Interpretation Comments SODIUM (test code = NA) 140 mmol/L 134-147 N POTASSIUM (test code = K) 4.9 mmol/L 3.4-5.0 N CHLORIDE (test code = CL) 103 mmol/L 100-108 N CARBON DIOXIDE (test code = CO2) 34 mmol/L 21-32 H ANION GAP (test code = GAP) 3.0 GAP calc 4.0-15.0 L GLUCOSE (test code = GLU) 135 MG/DL 70-110 H BLOOD UREA NITROGEN (test code = 24 MG/DL 7-18 H BUN) GLOMERULAR FILTRATION RATE (test 43 estGFR >60 L code = GFR) CREATININE (test code = CREAT) 1.3 MG/DL 0.6-1.0 H CALCIUM (test code = CA) 8.3 MG/DL 8.5-10.1 L
--- NOTE | 2020-07-23 16:14 | RAD REPORT ---
EXAM DESCRIPTION: RAD - Chest Single View - 07/23/2020 4:05 pm CLINICAL HISTORY: volume overload, shortness of breath, ascites COMPARISON: October 2019 TECHNIQUE: AP portable chest image was obtained 07/23/2020 4:05 pm . FINDINGS: Lung volumes are low accentuating interstitial pattern. No gross change from comparison. L ow lung volumes accentuate the interstitial pattern. No diffuse pulmonary edema. Heart and vasculature are normal. No measurable pleural effusion and no pneumothorax. No acute bony abnormality seen. No acute aortic findings suspected. IMPRESSION: Limited portable study not substantially different from comparison. No diffuse pulmonary edema.
[2020-07-23 16:21] LABS: Absolute Lymphocytes (CBC) 0.3 K/uL (0.7-4.9); Basophils % 0.5 % (0-1.3); Hematocrit 40.5 % (36.0-45.0); MPV 9.6 fL (7.6-11.3); RBC Red Blood Cell Count 3.75 M/uL (3.86-4.86)
[2020-07-23 16:23] LABS: Protime INR 1.05
[2020-07-23 16:51] LABS: Urine Blood NEGATIVE (NEG); Urine Glucose NEGATIVE (NEG); Urine Protein NEGATIVE (NEG); Urine pH 5.5 (5.0-7.0)
[2020-07-23 17:12] LABS: Blood Morphology Comment NOTED (NOT SEEN); Macrocytosis 1+; Platelet Estimate DECR; White Blood Cell Scan OK (OK)
[2020-07-23 17:16] LABS: Urine Amorphous Sediment 3+ /HPF (NONE SEEN); Urine Bacteria 20-50 /HPF (<20); Urine Culture Reflex Order REFLEXED; Urine Mucus 1+ /HPF (NONE SEEN); Urine RBC <5 /HPF (NONE SEEN)
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
[2020-07-23 21:25] VITALS: BP 110/63; TEMP 98.2; O2SAT 98
== END 2020-07-23 18:43 | disposition home or self-care (01) ==
LOC: ER 15:35
DX: R18.8 Other ascites (principal); Z20.828 Contact with and (suspected) exposure to other viral communicable diseases; I10 Essential (primary) hypertension; K74.60 Unspecified cirrhosis of liver; Z88.0 Allergy status to penicillin
CPT/HCPCS: 36415; 71045; 80048; 81003; 81015; 83880; 84145; 85025; 85610; 85730; 87086; 87088; 99285; U0002

== ENCOUNTER 2020-07-25 04:00 | Inpatient (IN) | payer OTHER ==
--- OUTSIDE RECORDS SUMMARY | 2020-07-25 04:04 | XMS REPORT | Continuity of Care Document ---
:1950 Author Organization [facility] t Address [address] [place] [address] Care Team Providers Name Role Phone Unavailable Unavailable Unavailable Payers Payer Name Policy Type Policy Number Effective Date Expiration Date S ource Problems This patient has no known problems. Allergies, Adverse Reactions, Alerts Allergy Allergy Status Severity Reaction(s) Onset Inactive Treating Comm ents Source Name Type Date Date Clinician [place] DA Active MO 2018-11 [facility] ins 2-16 Clear 00:00: [place] [address] [place] [address] Medications This patient has no known medications. Procedures This patient has no known procedures. Results Test Description Test Time Test Comments Results Result Comments Source GLUCOSE BEDSIDE TESTING 2019-12-17 20:13:00 Test Item Value Reference Range Interpretation Comme nts GLUCOSE BEDSIDE TESTING (test code = GLUBED) 148 mg/dL 70-110 H CBC W/AUTO [id number] 07:35:00 Test Item Value Reference Range Interpretation [...] code = NO DIFF/SCN CRITERIA MDIFF) RBC [id number] 07:35:00 Test Item Value Reference Range Interpretation Comments PLATELET ESTIMATE ADEQUATE THOUSAND ADEQUATE PLT E ST (test code = PLTEST) 40,000- 60,000 PLATELET MORPHOLOGY NORMAL (test code = PLTMORPH) CBC W/AUTO [id number] 07:34:00 Test Item Value Reference Range Interpretation [...] = NO DIFF/SCN CRITERIA MDIFF) CBC W/AUTO [id number] 07:34:00 Test Item Value Reference Range Interpretation [...] = NO DIFF/SCN CRITERIA MDIFF) CBC W/AUTO [id number] 07:29:00 Test Item Value Reference Range Interpretation [...] code = DIFF/SCN CRITERIA MDIFF) CBC W/AUTO [id number] 04:54:00 Test Item Value Reference Range Interpretation [...] code = DIFF/SCN CRITERIA MDIFF) BASIC METABOLIC [id number] 04:41:00 Test Item Value Reference Range Interpretation [...] code = CA) 7.7 MG/DL 8.5-10.1 L [id number] 04:41:00 Test Item Value Reference Range Interpretation Comments MAGNESIUM (test code = MAG) 2.4 MG/DL 1.8-2.4 N HGB [id number] 20:19:00 Test Item Value Reference Range Interpretation Comments HEMOGLOBIN (test code = HGB) 11.2 G/DL 10.4-14.9 N HEMATOCRIT (test code = HCT) 34.8 % 31.5-44.1 N CBC W/AUTO [id number] 15:20:00 Test Item Value Reference Range Interpretation [...] DIFFERENTIAL. Comment: repeat cbc at 6 pm [facility] W/AUTO [id number] 15:20:00 Test Item Value Reference Range Interpretation [...] DIFFERENTIAL. Comment: [facility] [id number] 15:20:00 Test Item Value Reference Range Interpretation Comments PLATELET ESTIMATE DECREASED THOUSAND ADEQUATE PLAT ELET COUNT (test code = REVIEWED AND PLTEST) VERIFIED. PLATELET MORPHOLOGY NORMAL (test code = PLTMORPH) Comment: [facility] [id number] 15:20:00 Test Item Value Reference Range Interpretation [...] DIFFERENTIAL. Comment: repeat cbc at 6 pm [facility] W/AUTO [id number] 15:18:00 Test Item Value Reference Range Interpretation [...] DIFFERENTIAL. Comment: repeat cbc at 6 pm [facility] W/AUTO [id number] 14:15:00 Test Item Value Reference Range Interpretation [...] Comment: repeat cbc at 6 pm todayHGB [id number] 12:24:00 Test Item Value Reference Range Interpretation Comments HEMOGLOBIN (test code = HGB) 11.5 G/DL 10.4-14.9 N HEMATOCRIT (test code = HCT) 35.3 % 31.5-44.1 N CBC W/AUTO [id number] 10:33:00 Test Item Value Reference Range Interpretation [...] MDIFF) CONSISTA NT WITH AUTO DIFFERENTIAL. RBC [id number] 10:33:00 Test Item Value Reference Range Interpretation Comments PLATELET ESTIMATE DECREASED THOUSAND ADEQUATE JERAMY MATED (test code = PLATELET RANGE = PLTEST) 52,000 - 65,000 PLATELET MORPHOLOGY NORMAL (test code = PLTMORPH) CBC W/AUTO [id number] 10:31:00 Test Item Value Reference Range Interpretation [...] CONSISTA NT WITH AUTO DIFFERENTIAL. CBC W/AUTO [id number] 10:31:00 Test Item Value Reference Range Interpretation [...] MDIFF) CONSISTA NT WITH AUTO DIFFERENTIAL. PROTHROMBIN [id number] 08:49:00 Test Item Value Reference Range Interpretation Comments PT PATIENT (test code = PTP) 13.2 SECONDS 9.3-12.9 H INTERNATIONAL NORMAL RATIO 1.16 INR Unit 0.8-1.2 N (test code = INR) CBC W/AUTO [id number] 08:36:00 Test Item Value Reference Range Interpretation [...] code = DIFF/SCN CRITERIA MDIFF) GLUCOSE BEDSIDE [id number] 06:42:00 Test Item Value Reference Range Interpretation Comments GLUCOSE BEDSIDE TESTING (test code 139 mg/dL 70-110 H = GLUBED) [id number] 15:36:00 RUN DATE: 11/14/[address] [facility] PAGE 1 RUN TIME: 1536 Specimen Inquiry RUN USER: INTERFACE PATIENT: VASU STONE LOC: Renaldo U #: [id number] AGE/SX: 68/F ROOM: [facility] RE10/30/19REG DR: Tyler Paz MD : [birth year] BED: 1 DIS: 11/02/19 STATUS: DIS IN TLOC: SPEC #: [id number] RECD: 11/02/19 STATUS: KONG ALLEN #: [id number] PASHA: 11/01/[address]: Tyler Paz MD ENTERED: 11/02/19 SP TYPE: SURG OTHR DR: Self Referred Sony March Jr, MD, Nizam Mohammad MDORDERED: SURG PATH LVL 4 COPIES TO: Self Referred Sony March Jr, MD [address] [facility] [address] [facility] [address] [place] [address] [facility] [address] [place] [address] Nani Pinon MD [address] [place] [address] HISTOLOGY: TISSUE ID BLK PCS CURT LEV PROCEDURE DISPOSITION ____ ___ ___ ___ STOMACH, NOS A 1 2 PROCEDURES: SURG PATH LVL 4 (11/02/19) TISSUES: A. STOMACH, NOS - GASTRIC POLYPS CLINICAL HISTORY BLOOD CLOT SENT BY DR. PINON CPT CODES CPT CODE(S): 90655 , , , , , , CONTINUED ON NEXT PAGE --RUN DATE: 11/14/19 [facility] PAGE 2 RUN TIME: 1536 Specimen Inquiry RUN USER: INTERFACE SPEC #: [id number]:[id number] PATIENT: VASU STONE #[id number] (C ontinued) FINAL DIAGNOSIS Stomach, polypectomy: GASTRIC HYPERPLASTIC POLYPS NO EVIDENCE OF DYSPLASIA OR MALIGNANCY GROSS DESCRIPTION Gastric polyp. Received in formalin are multiple irregular fragments of craft-brown soft tissue admixed with dark brown blood clots, 3.0 x 2.5 x 0.3 cm in aggregate. The entire specimen submitted as A1 - A4. ba/nr Grossing performed at [facility] Pathology, [facility], [address], [place] [address]. Buffer Chrome: Enrrique Benavides MICROSCOPIC DESCRIPTION Gastric polyp. Large polypoid fragments of gastric mucosa with extensive foveolar hyperplasia and large dilated cystic glands lined by foveolar cells. There is focal surface erosion, vascular congestion, and hemorrhage. Mild chronic inflammation is identified. No evidence of significant atypia or malignancy. /cm Signed SIGNATURE ON FILE Ty Schrader Vinay 11/14/19 1536 END OFREPORT GLUCOSE BEDSIDE [id number] 16:51:00 Test Item Value Reference Range Interpretation Comments GLUCOSE BEDSIDE TESTING (test code 140 mg/dL 70-110 H = GLUBED) GLUCOSE BEDSIDE [id number] 12:31:00 Test Item Value Reference Range Interpretation Comments GLUCOSE BEDSIDE TESTING (test code 105 mg/dL 70-110 N = GLUBED) CBC W/AUTO [id number] 09:29:00 Test Item Value Reference Range Interpretation [...] MDIFF) CONSISTA NT WITH AUTO DIFFERENTIAL. RBC [id number] 09:29:00 Test Item Value Reference Range Interpretation Comments PLATELET ESTIMATE MARKEDLY DECREASED ADEQUATE PLAT ELET COUNT (test code = THOUSAND ESTIMATE= 48,00 0 PLTEST) TO 60,000 PLATELET MORPHOLOGY NORMAL (test code = PLTMORPH) CBC W/AUTO [id number] 09:27:00 Test Item Value Reference Range Interpretation [...] CONSISTA NT WITH AUTO DIFFERENTIAL. CBC W/AUTO [id number] 09:27:00 Test Item Value Reference Range Interpretation [...] CONSISTA NT WITH AUTO DIFFERENTIAL. GLUCOSE BEDSIDE [id number] 08:43:00 Test Item Value Reference Range Interpretation Comments GLUCOSE BEDSIDE TESTING (test code = 92 mg/dL 70-110 N GLUBED) COMPREHENSIVE METABOLIC [id number] 08:12:00 Test Item Value Reference Range Interpretation [...] 90 Unit/L 45-117 N code = ALKP) [id number] 08:12:00 Test Item Value Reference Range Interpretation Comments MAGNESIUM (test code = MAG) 2.2 MG/DL 1.8-2.4 N CBC W/AUTO [id number] 08:03:00 Test Item Value Reference Range Interpretation [...] code = DIFF/SCN CRITERIA MDIFF) GLUCOSE BEDSIDE [id number] 20:32:00 Test Item Value Reference Range Interpretation Comments GLUCOSE BEDSIDE TESTING (test code 104 mg/dL 70-110 N = GLUBED) HGB [id number] 17:25:00 Test Item Value Reference Range Interpretation Comments HEMOGLOBIN (test code = HGB) 12.2 G/DL 10.4-14.9 N HEMATOCRIT (test code = HCT) 38.3 % 31.5-44.1 N GLUCOSE BEDSIDE [id number] 16:58:00 Test Item Value Reference Range Interpretation Comments GLUCOSE BEDSIDE TESTING (test code 112 mg/dL 70-110 H = GLUBED) GLUCOSE BEDSIDE [id number] 12:16:00 Test Item Value Reference Range Interpretation Comments GLUCOSE BEDSIDE TESTING (test code 126 mg/dL 70-110 H = GLUBED) GLUCOSE BEDSIDE [id number] 08:20:00 Test Item Value Reference Range Interpretation Comments GLUCOSE BEDSIDE TESTING (test code 117 mg/dL 70-110 H = GLUBED) HGB [id number] 04:55:00 Test Item Value Reference Range Interpretation Comments HEMOGLOBIN (test code = HGB) 12.0 G/DL 10.4-14.9 N HEMATOCRIT (test code = HCT) 37.9 % 31.5-44.1 N GLUCOSE BEDSIDE [id number] 22:31:00 Test Item Value Reference Range Interpretation Comments GLUCOSE BEDSIDE TESTING (test code 139 mg/dL 70-110 H = GLUBED) GLUCOSE BEDSIDE [id number] 17:24:00 Test Item Value Reference Range Interpretation Comments GLUCOSE BEDSIDE TESTING (test code 124 mg/dL 70-110 H = GLUBED) HGB [id number] 16:27:00 Test Item Value Reference Range Interpretation Comments HEMOGLOBIN (test code = HGB) 12.4 G/DL 10.4-14.9 N HEMATOCRIT (test code = HCT) 38.9 % 31.5-44.1 N GLUCOSE BEDSIDE [id number] 11:27:00 Test Item Value Reference Range Interpretation Comments GLUCOSE BEDSIDE TESTING (test code 140 mg/dL 70-110 H = GLUBED) GLUCOSE BEDSIDE [id number] 08:50:00 Test Item Value Reference Range Interpretation Comments GLUCOSE BEDSIDE TESTING (test code 111 mg/dL 70-110 H = GLUBED) CBC W/AUTO [id number] 05:05:00 Test Item Value Reference Range Interpretation [...] = MDIFF) REVIEWED AND VERIFIED. COMPREHENSIVE METABOLIC [id number] 04:30:00 Test Item Value Reference Range Interpretation [...] Unit/L 45-117 N code = ALKP) PROTHROMBIN [id number] 04:27:00 Test Item Value Reference Range Interpretation Comments PT PATIENT (test code = PTP) 13.7 SECONDS 9.3-12.9 H INTERNATIONAL NORMAL RATIO 1.21 INR Unit 0.8-1.2 H (test code = INR) CBC W/AUTO [id number] 04:17:00 Test Item Value Reference Range Interpretation [...] = DIFF/SCN CRITERIA MDIFF) - US ABDOMEN [id number] 00:11:00 Name: VASU STONE [facility] : 08/23/1951 Age/S: 68 / F [id number] Unit #: [id number] Loc: [place] [address] Phys: Tyler Paz MD Acct: [id number] Dis Date: Status: ADM IN PHONE #: [phone] Exam Date: 10/30/2019 2200 FAX #: Reason: ASCITIS? EXAMS: CPT: [id number] US ABDOMEN COMPLETE [id number] Examination: Abdominal ultrasound Location code: S17 Comparison: [...] Rodolfo Cardenas MD Technologist: Arlyn Diaz RDMS Trncob Date/Time: 10/31/2019 (0011) [id number] PAGE 1 Signed Report Name: VASU STONE [place] : 08/23/1951 Age/S: 68 / F [address] Unit #: [id number]: [place] [address] Phys: Tyler Paz MD Acct: [id number] Dis Date: Status: ADM IN PHONE #: [phone] Exam Date: 10/30/2019 2200 FAX #: Reason: ASCITIS? EXAMS: CPT: [id number] US ABDOMEN COMPLETE [id number] <Continued> Orig Print D/T: S: 10/31/2019 (0015) Probe: PAGE 2 Signed ReportGLUCOSE BEDSIDE [id number] 22:51:00 Test Item Value Reference Range Interpretation Comments GLUCOSE BEDSIDE TESTING (test code 120 mg/dL 70-110 H = GLUBED) CBC W/AUTO [id number] 17:47:00 Test Item Value Reference Range Interpretation [...] MDIFF) CONSISTA NT WITH AUTO DIFFERENTIAL. RBC [id number] 17:47:00 Test Item Value Reference Range Interpretation Comments PLATELET ESTIMATE DECREASED THOUSAND ADEQUATE PLAT ELET ESTIMATE (test code = 64,000 TO 80,00 0 PLTEST) PLATELET MORPHOLOGY NORMAL (test code = PLTMORPH) CBC W/AUTO [id number] 17:46:00 Test Item Value Reference Range Interpretation [...] CONSISTA NT WITH AUTO DIFFERENTIAL. CBC W/AUTO [id number] 17:46:00 Test Item Value Reference Range Interpretation [...] CONSISTA NT WITH AUTO DIFFERENTIAL. CBC W/AUTO [id number] 16:20:00 Test Item Value Reference Range Interpretation [...] code = DIFF/SCN CRITERIA MDIFF) BASIC METABOLIC [id number] 16:04:00 Test Item Value Reference Range Interpretation [...]
[2020-07-25 04:46] LABS: Absolute Lymphocytes (CBC) 0.3 K/uL (0.7-4.9); Basophils % 0.6 % (0-1.3); Hematocrit 38.6 % (36.0-45.0); Lymphocytes % 16.8 % (15.3-44.8)
[2020-07-25 04:51] LABS: Protime INR 1.05
[2020-07-25 05:12] LABS: ALT/SGPT 11 U/L (12-78); AST/SGOT 22 U/L (15-37); Albumin 2.8 g/dL (3.4-5.0); Alkaline Phosphatase 60 U/L (45-117); BUN Blood Urea Nitrogen 18 mg/dL (7-18); Bicarbonate 33 mmol/L (21-32); Bilirubin Direct 0.7 mg/dL (0-0.2); Bilirubin Total 1.5 mg/dL (0.2-1.0); Glucose Level 127 mg/dL (74-106); Magnesium 2.4 mg/dL (1.8-2.4); NT PRO-BNP 1351 pg/mL (<125); Potassium 4.9 mmol/L (3.5-5.1); Protein, Total 8.3 g/dL (6.4-8.2); Sodium Level 139 mmol/L (136-145); Troponin (Emerg Dept Use Only) < 0.02 ng/mL (0.0-0.045)
--- NOTE | 2020-07-25 06:33 | ER ---
Nurse's Notes [facility] Name: Sofie Kinney Age: 69 yrs Sex: Female : 1950 Arrival Date: 07/25/2020 Time: 04:04 Bed 8 Private MD: Diagnosis: Pneumonia;Chest Pain Presentation: 07/25 04:04 Chief complaint: EMS states: she was here just admitted here 2 days ago for mg2 Paracentesis , 6 L was removed. was dc yesterday. now she is complaining of chest pain and Low oxygen \T\ 80 RA. O2 was supplemented and it went up to 100%. Coronavirus screen: Client denies travel out of the [place] in the last 14 days. Ebola Screen: No symptoms or risks identified at this time. Initial Sepsis Screen: Does the patient meet any 2 criteria? No. Patient's initial sepsis screen is negative. Does the patient have a suspected source of infection? No. Patient's initial sepsis screen is negative. Risk Assessment: Do you want to hurt yourself or someone else? Patient reports no desire to harm self or others. 04:04 Method Of Arrival: EMS: [facility] mg2 04:04 Acuity: ROBERT 2 mg2 04:34 Onset of symptoms was July 25, 2020. mg2 04:51 Note COVID 19 swab done on the 07/23/2020 visit. Triage Assessment: 04:08 General: Appears in no apparent distress. comfortable, Behavior is calm, cooperative. mg2 Pain: Complains of pain in chest. EENT: No signs and/or symptoms were reported regarding the EENT system. Neuro: Level of Consciousness is awake, alert, obeys commands, Oriented to person, place, time, situation. Cardiovascular: Reports chest pain, Capillary refill < 3 seconds. Respiratory: Airway is patent Respiratory effort is even, unlabored, Respiratory pattern is regular, symmetrical. GI: Abdomen is round distended, noted to have ascites. : No signs and/or symptoms were reported regarding the genitourinary system. Derm: Skin is icteric, pale. Musculoskeletal: Circulation, motion, and sensation intact. Capillary refill < 3 seconds. Historical: - Allergies: 04:08 PENICILLINS; mg2 - PMHx: 04:08 Anemia; Cirrhosis; Diabetes - NIDDM; Hypertension; Thyroid problem; mg2 - Immunization history:: Flu vaccine status is unknown. - Social history:: Smoking status: Patient denies any tobacco usage or history of. Patient/guardian denies using alcohol, street drugs, IV drugs. Screenin:08 Abuse screen: Denies threats or abuse. Denies injuries from another. Nutritional mg2 screening: No deficits noted. Tuberculosis screening: No symptoms or risk factors identified. Fall Risk IV access (20 points). Gait- Weak (10 pts.). Assessment: 04:09 General: see triage notes. mg2 04:54 Reassessment: No changes from previously documented assessment. mg2 05:54 Reassessment: Patient appears in no apparent distress at this time. Patient and/or mg2 family updated on plan of care and expected duration. Pain level reassessed. 06:30 Reassessment: No changes from previously documented assessment. Patient and/or family mt2 updated on plan of care and expected duration. Pain level reassessed. General: Appears comfortable, Behavior is cooperative. 07:05 General: Appears in no apparent distress. comfortable, Behavior is calm, cooperative. rb1 Pain: Denies pain. Neuro: Level of Consciousness is awake, alert, obeys commands, Oriented to person, place, time, situation. Cardiovascular: Capillary refill < 3 seconds Patient's skin is warm and dry. Respiratory: Airway is patent Respiratory effort is even, unlabored, Respiratory pattern is regular, symmetrical. Musculoskeletal: Range of motion: intact in all extremities. 08:00 Reassessment: Patient appears in no apparent distress at this time. No changes from rb1 previously documented assessment. 09:00 Reassessment: Patient appears in no apparent distress at this time. Patient and/or rb1 family updated on plan of care and expected duration. Pain level reassessed. Patient is alert, oriented x 3, equal unlabored respirations, skin warm/dry/pink. 09:46 Reassessment: Tried to call report, unable to give report at this time due to the nurse rb1 being in another room. 09:53 Reassessment: Patient appears in no apparent distress at this time. Pt. updated on POC. rb1 10:06 Reassessment: Gave report to SHARRI Lugo. Information from the [facility] was given. All rb1 questions asked and answered. Azithromycin sent to the floor with the pt. Vital Signs: 04:04 BP 122 / 83; Pulse 50; Resp 18; Temp 97.6; Pulse Ox 88% on R/A; Height 5 ft. 3 in. mg2 (160.02 cm); Pain 5/10; 04:54 BP 115 / 57; Pulse 49; Resp 18; Pulse Ox 100% on R/A; mg2 05:55 BP 106 / 52; Pulse 49; Resp 18; Pulse Ox 100% on R/A; mg2 06:30 BP 96 / 53; Pulse 54; Resp 16; Pulse Ox 96% on 2 lpm NC; Pain 0/10; mt2 07:30 BP 91 / 63; Pulse 51; Resp 18; Pulse Ox 100% ; rb1 08:30 BP 89 / 65; Pulse 51; Resp 17; Pulse Ox 100% on 2 lpm NC; rb1 09:30 BP 98 / 81; Pulse 49; Resp 17; Pulse Ox 100% on 2 lpm NC; rb1 ED Course: 04:04 Patient arrived in ED. mg2 04:07 Triage completed. mg2 04:07 Arm band placed on. mg2 04:09 Fabrice Potts MD is Attending Physician. mh7 04:09 Stephan Youssef RN is Primary Nurse. mg2 04:25 Patient has correct armband on for positive identification. mg2 04:25 No provider procedures requiring assistance completed. Inserted saline lock: 22 gauge mg2 in right upper arm, using aseptic technique. Blood collected. 04:26 XRAY Chest (1 view) In Process Unspecified. EDMS 04:49 Notified ED physician of a critical lab result(s). WBC 1.6, PLT [address]Holmes barbara Arshad in outside lab. 06:32 Farrukh Charles MD is Hospitalizing Provider. mh7 07:07 Patient admitted, IV remains in place. mg2 07:07 covid swab sent to lab. mg2 Administered Medications: 06:42 Drug: LevaQUIN 500 mg Volume: 100 ml; Route: IVPB; Infused Over: 60 mins; Site: right mg2 upper arm; 07:00 Follow up: Response: No adverse reaction; IV Status: Completed infusion rb1 Outcome: 06:32 Decision to Hospitalize by Provider. mh7 10:17 Admitted to Med/surg accompanied by tech, via stretcher, room 230, with oxygen, with rb1 chart, Report called to SHARRI Lugo 10:17 Condition: stable 10:17 Instructed on the need for admit. 10:23 Patient left the ED. iw Signatures: Dispatcher [employer] EDMS Ervin Campa RN RN sg María Elena Velasco RN RN iw Fiorella Bass RN RN rb1 Stephan Youssef RN RN mg2 Fabrice Potts MD MD 7 Ijeoma Bacon RN RN mt2 Corrections: (The following items were deleted from the chart) 09:49 09:30 BP 98 / 81; Pulse 49bpm; Resp 17bpm; Pulse Ox 100%; rb1 rb1
--- NOTE | 2020-07-25 06:34 | EDPHYS ---
Physician Documentation [facility] Name: Sofie Kinney Age: 69 yrs Sex: Female : 1950 Arrival Date: 07/25/2020 Time: 04:04 Bed 8 Private MD: ED Physician Fabrice Potts HPI: 07/25 05:07 This 69 yrs old Female presents to ER via EMS with complaints of Chest Pain > mh7 30 y/o. 05:07 The patient or guardian reports chest pain that is located primarily in the anterior mh7 chest wall, left. Onset: last night. The pain does not radiate. Associated signs and symptoms: Pertinent positives: shortness of breath, Pertinent negatives: abdominal pain, cough, diaphoresis, dizziness, headache, lower extremity pain, lower extremity swelling, lightheadedness, nausea, near syncope, palpitations, recent travel, syncope, vomiting. The chest pain is described as sharp. Duration: The patient or guardian reports multiple episodes, that are intermittent, that wax and wane, with no pattern. Modifying factors: The symptoms are alleviated by nothing. the symptoms are aggravated by nothing. Severity of pain: At its worst the pain was moderate last night, in the emergency department the pain has improved moderately. Historical: - Allergies: 04:08 PENICILLINS; mg2 - PMHx: 04:08 Anemia; Cirrhosis; Diabetes - NIDDM; Hypertension; Thyroid problem; mg2 - Immunization history:: Flu vaccine status is unknown. - Social history:: Smoking status: Patient denies any tobacco usage or history of. Patient/guardian denies using alcohol, street drugs, IV drugs. ROS: 05:07 Constitutional: Negative for fever, chills, and weight loss, Eyes: Negative for injury, mh7 pain, redness, and discharge, ENT: Negative for injury, pain, and discharge, Neck: Negative for injury, pain, and swelling, Abdomen/GI: Negative for abdominal pain, nausea, vomiting, diarrhea, and constipation, Back: Negative for injury and pain, : Negative for injury, bleeding, discharge, and swelling, MS/Extremity: Negative for injury and deformity, Skin: Negative for injury, rash, and discoloration, Neuro: Negative for headache, weakness, numbness, tingling, and seizure, Psych: Negative for depression, anxiety, suicide ideation, homicidal ideation, and hallucinations, Allergy/Immunology: Negative for hives, rash, and allergies, Endocrine: Negative for neck swelling, polydipsia, polyuria, polyphagia, and marked weight changes, Hematologic/Lymphatic: Negative for swollen nodes, abnormal bleeding, and unusual bruising. Exam: 05:07 Constitutional: This is a well developed, well nourished patient who is awake, alert, mh7 and in no acute distress. Head/Face: Normocephalic, atraumatic. Eyes: Pupils equal round and reactive to light, extra-ocular motions intact. Lids and lashes normal. Conjunctiva and sclera are non-icteric and not injected. Cornea within normal limits. Periorbital areas with no swelling, redness, or edema. Neck: Trachea midline, no thyromegaly or masses palpated, and no cervical lymphadenopathy. Supple, full range of motion without nuchal rigidity, or vertebral point tenderness. No Meningismus. Chest/axilla: Normal chest wall appearance and motion. Nontender with no deformity. No lesions are appreciated. 05:07 Back: No spinal tenderness. No costovertebral tenderness. Full range of motion. Skin: Warm, dry with normal turgor. Normal color with no rashes, no lesions, and no evidence of cellulitis. MS/ Extremity: Pulses equal, no cyanosis. Neurovascular intact. Full, normal range of motion. Neuro: Awake and alert, GCS 15, oriented to person, place, time, and situation. Cranial nerves II-XII grossly intact. Motor strength 5/5 in all extremities. Sensory grossly intact. Cerebellar exam normal. Normal gait. Psych: Awake, alert, with orientation to person, place and time. Behavior, mood, and affect are within normal limits. 05:07 Constitutional: The patient appears 05:07 Cardiovascular: Rate: bradycardic, Rhythm: regular, Pulses: no pulse deficits are appreciated, Heart sounds: normal, normal S1and S2, Edema: is not appreciated, JVD: is not appreciated. 05:07 Respiratory: the patient does not display signs of respiratory distress, Respirations: normal, Breath sounds: rhonchi, that are mild, are scattered, Respiratory rate: 18 05:07 Abdomen/GI: Inspection: obese Bowel sounds: normal, in all quadrants, Palpation: abdomen is soft and non-tender, in all quadrants, Indicators: McBurney's point is not tender, Mays's sign is negative, Rovsing's sign is negative, Obturator sign is negative, Psoas sign is negative, Liver: is enlarged, Hernia: not appreciated. 05:07 ECG was reviewed by the Attending Physician. [facility] Vital Signs: 04:04 BP 122 / 83; Pulse 50; Resp 18; Temp 97.6; Pulse Ox 88% on R/A; Height 5 ft. 3 in. mg2 (160.02 cm); Pain 5/10; 04:54 BP 115 / 57; Pulse 49; Resp 18; Pulse Ox 100% on R/A; mg2 05:55 BP 106 / 52; Pulse 49; Resp 18; Pulse Ox 100% on R/A; mg2 06:30 BP 96 / 53; Pulse 54; Resp 16; Pulse Ox 96% on 2 lpm NC; Pain 0/10; mt2 07:30 BP 91 / 63; Pulse 51; Resp 18; Pulse Ox 100% ; rb1 08:30 BP 89 / 65; Pulse 51; Resp 17; Pulse Ox 100% on 2 lpm NC; rb1 09:30 BP 98 / 81; Pulse 49; Resp 17; Pulse Ox 100% on 2 lpm NC; rb1 MDM: 04:25 Patient medically screened. [facility] 06:30 Differential diagnosis: acute myocardial infarction, acute pericarditis, coronary 7 artery disease chest wall pain, congestive heart failure costochondritis, pneumonia, pneumothorax. HEART Score: History: Moderately Suspicious (1), ECG: Non specific repolarization disturbance / LBTB / PM (1), Age: > or = 65 years (2), Risk Factors: 1 or 2 risk factors (1), [Hypertension] [DM] Troponin: < or = 1 x Normal Limit (0), Total Score = 5. Data reviewed: vital signs, nurses notes, old medical records, lab test result(s), cardiac enzymes, CBC, electrolytes, EKG, radiologic studies, plain films. Data interpreted: Pulse oximetry: on 2L(s) per nasal canula, is 98 %. Interpretation: acceptable. Counseling: I had a detailed discussion with the patient and/or guardian regarding: the historical points, exam findings, and any diagnostic results supporting the discharge/admit diagnosis, lab results, radiology results, the need for further work-up and treatment in the hospital. Response to treatment: the patient's symptoms have markedly improved after treatment. 07/25 04:07 Order name: Basic Metabolic Panel; Complete Time: 05:44 mg2 07/25 04:07 Order name: CBC with Diff mg2 07/25 04:07 Order name: LFT's; Complete Time: 05:44 mg2 07/25 04:07 Order name: Magnesium; Complete Time: 05:44 mg2 07/25 04:07 Order name: NT PRO-BNP; Complete Time: 05:44 mg2 07/25 04:07 Order name: PT-INR; Complete Time: 05:44 mg2 07/25 04:07 Order name: Troponin (emerg Dept Use Only); Complete Time: 05:44 mg2 07/25 04:50 Order name: CBC Smear Scan EDMS 07/25 06:15 Order name: Blood Culture Adult (2) mh7 07/25 07:37 Order name: SARS-COV-2 RT PCR EDMS 07/25 08:37 Order name: CBC with Automated Diff EDMS 07/25 08:37 Order name: CBC with Automated Diff EDMS 07/25 08:37 Order name: Comprehensive Metabolic Panel EDMS 07/25 04:07 Order name: XRAY Chest (1 view) mg2 07/25 04:07 Order name: EKG; Complete Time: 04:08 mg2 07/25 08:37 Order name: Comprehensive Metabolic Panel EDMS 07/25 08:37 Order name: Lipid Profile EDMS 07/25 08:37 Order name: Lipid Profile EDMS 07/25 08:37 Order name: Magnesium EDMS 07/25 08:37 Order name: Magnesium EDMS 07/25 08:37 Order name: NT PRO-BNP EDMS 07/25 08:37 Order name: NT PRO-BNP EDMS 07/25 08:37 Order name: Phosphorus EDMS 07/25 08:37 Order name: Phosphorus EDMS 07/25 08:37 Order name: Protime (+INR) EDMS 07/25 08:37 Order name: Protime (+INR) EDMS 07/25 08:37 Order name: PTT, Activated Partial Thromb EDMS 07/25 08:37 Order name: PTT, Activated Partial Thromb EDMS 07/25 04:07 Order name: Cardiac monitoring; Complete Time: 04:25 mg2 07/25 04:07 Order name: EKG - Nurse/Tech; Complete Time: 04: mg2 07/25 04:07 Order name: IV Saline Lock; Complete Time: : mg2 07/25 04:07 Order name: Labs collected and sent; Complete Time: : mg2 07/25 04:07 Order name: O2 Per Protocol; Complete Time: : mg2 07/25 04:07 Order name: O2 Sat Monitoring; Complete Time: : mg2 07/25 08:37 Order name: Heart Healthy EDMS EC:07 Rate is 47 beats/min. Rhythm is regular, Sinus bradycardia. QRS Stow is Normal. NM mh7 interval is normal. QRS interval is normal. QT interval is normal. Q waves are Present in leads V1, V2, V3. T waves are Normal. No ST changes noted. Clinical impression: Abnormal EKG without significant change. Administered Medications: 06:42 Drug: LevaQUIN 500 mg Volume: 100 ml; Route: IVPB; Infused Over: 60 mins; Site: right [facility] upper [facility]; 07:00 Follow up: Response: No adverse reaction; IV Status: Completed infusion rb1 Disposition: 07/25/20 06:32 Hospitalization ordered by Farrukh Charles for Observation. Preliminary diagnosis are Pneumonia, Chest Pain. - Bed requested for Telemetry/MedSurg (observation). - Status is Observation. iw - Condition is Stable. - Problem is new. - Symptoms have improved. Signatures: Dispatcher [employer] EDSC Wendi Esquivel Irene, RN RN iw Stephan Youssef RN RN mg2 Fabrice Potts MD MD [facility] Fiorella Bass RN rb1 Corrections: (The following items were deleted from the chart) 07:37 06:39 CORONAVIRUS+MR.LAB.BRZ ordered. [facility] EDSC 09:24 06:32 Hospitalization Ordered by Farrukh Charles MD for Observation. Preliminary bd diagnosis is Pneumonia; Chest Pain. Bed requested for Telemetry/MedSurg (observation). Status is Observation. Condition is Stable. Problem is new. Symptoms have improved. mh7 10:23 09:24 07/25/2020 06:32 Hospitalization Ordered by Farrukh Charles MD for Observation. iw Preliminary diagnosis is Pneumonia; Chest Pain. Bed requested for Telemetry/MedSurg (observation). Status is Observation. Condition is Stable. Problem is new. Symptoms have improved. bd
[2020-07-25] MEDS ORDERED: Levofloxacin500mg IV 500 MG/100 ML BAG IV ONE (06:45)
[2020-07-25] MEDS ORDERED: ONDANSETRON 4 MG/2 ML VIAL IV PRN (08:32)
[2020-07-25] MEDS: ENOXAPARIN 40 MG/0.4 ML SQ SCH (09:00)
[2020-07-25 10:28] LABS: White Blood Cell Scan OK (OK)
[2020-07-25 10:29] LABS: Blood Morphology Comment NOTED (NOT SEEN); Platelet Estimate DECR
[2020-07-25 10:30] LABS: Macrocytosis 1+
[2020-07-25] MEDS: AZITHROMYCIN IV 500 MG in NA CHLORIDE 0.9% 250 ML IVPB SCH (11:02)
[2020-07-25] MEDS: NA CHLORIDE 0.9% 1,000 ML IV SCH (11:02)
[2020-07-25] MEDS: CEFTRIAXONE/SWI 1gm 1 GM/10 ML SYR IV SCH ×2 (11:03→21:06)
[2020-07-25 11:10] VITALS: BMI 38.6
--- NOTE | 2020-07-25 15:35 | RAD REPORT ---
EXAM DESCRIPTION: RAD - Chest Single View - 07/25/2020 4:28 am CLINICAL HISTORY: The patient is 69 years old and is Female; CHEST PAIN TECHNIQUE: Single portable view of the chest. COMPARISON: July 23, 2020 3:53 PM. FINDINGS: Lungs: Bibasilar infiltrates and/or consolidation, greater on the left. Pleural space: Small left pleural effusion versus pleural thickening impression. No pneumothorax. Heart: The cardiac silhouette is enlarged versus artifact of AP technique. Mediastinum: Mediastinal contours are altered due to leftward patient rotation. Bones/joints: The bones and joints are unchanged as visualized. Upper abdomen: No free air in the visualized upper abdomen. IMPRESSION: Bibasilar infiltrates and/or consolidation, greater on the left. These are increased com pared with the prior exam. Electronically signed by: Ariana Cardenas MD 07/25/2020 5:58 AM CDT Due to temporary technical issues with the PACS/Fluency reporting system, reports are being signed by the in house radiologist without Review as a courtesy to ensure prompt reporting. The interpreting radiologist is fully responsible fo r the content of the report.
[2020-07-25] MEDS ORDERED: ACETAMINOPHEN 500 MG TAB PO PRN (20:08)
[2020-07-26 04:49] LABS: Absolute Lymphocytes (CBC) 0.2 K/uL (0.7-4.9); Basophils % 0.6 % (0-1.3); Hematocrit 33.9 % (36.0-45.0); Lymphocytes % 10.9 % (15.3-44.8); MPV 9.3 fL (7.6-11.3); RBC Red Blood Cell Count 3.14 M/uL (3.86-4.86)
[2020-07-26 04:55] LABS: Protime INR 1.17
[2020-07-26 05:14] LABS: Albumin 2.6 g/dL (3.4-5.0); Magnesium 2.2 mg/dL (1.8-2.4); Phosphorus 3.2 mg/dL (2.5-4.9); Potassium 4.1 mmol/L (3.5-5.1); Protein, Total 7.6 g/dL (6.4-8.2)
[2020-07-26] MEDS: CEFTRIAXONE/SWI 1gm 1 GM/10 ML SYR IV SCH ×2 (08:29→21:39)
[2020-07-26] MEDS: ENOXAPARIN 40 MG/0.4 ML SQ SCH (08:29)
--- NOTE | 2020-07-26 10:16 | RAD REPORT ---
EXAM DESCRIPTION: US - Abdomen Exam Limited - 07/26/2020 9:39 am CLINICAL HISTORY: ascites-liver failure Evaluate for ascites. COMPARISON: ABDOMINAL EXAM COMPLETE dated 07/25/2009 FINDINGS: Real-time sonography of the abdomen was performed. Moderate ascites is noted.
[2020-07-26] MEDS: AZITHROMYCIN IV 500 MG in NA CHLORIDE 0.9% 250 ML IVPB SCH (10:40)
[2020-07-26] MEDS ORDERED: NA CHLORIDE 0.9% 250 ML ONE (13:26)
--- NOTE | 2020-07-26 13:58 | RAD REPORT ---
EXAM DESCRIPTION: US - Paracentesis Proc Guidance - 07/26/2020 9:38 am CLINICAL HISTORY: Ascites Ascites COMPARISON: Octreo Whole Body dated 12/06/2018 FINDINGS: Informed consent was obtained and time-out was performed. Patient's abdomen was prepped and draped in the usual sterile fashion. 1% lidocaine was used for loca l anesthetic purposes. A small skin incision was made along the right abdomen. A paracentesis catheter was guided into the p eroneal cavity under sonographic guidance. A small amount of fluid was set aside for potential lab studies if desired. A large volume paracentes is was performed. The patient tolerated the procedure well. IMPRESSION: Successful ultrasound-guided paracentesis.
--- NOTE | 2020-07-26 14:32 | P.HP ---
Certification for Inpatient Patient admitted to: Inpatient With expected LOS: >2 Midnights Patient will require the following post-hospital care: None Practitioner: I am a practitioner with admitting privileges, knowledge of patient current condition, hospital course, and medical plan of care. Services: Services provided to patient in accordance with Admission requirements found in Title 42 Section 412.3 of the Code of Federal Regulations Patient History Date of Service: 07/25/20 Reason for admission: Fluid overload History of Present Illness: Patient is a 69-year-old female lesion in the hospital with shortness of breath and abdominal distention. She has a history of cirrhosis and has recently had a paracentesis a week ago. She had 5-6 L removed at that time. She stated that the fluid build up quickly. She states she has been taking her medications. We will need to adjust her medications so her volume status does not worsen so quickly. Will get abdominal ultrasound and arrange for ultrasound-guided paracentesis. Allergies Penicillins Allergy (Verified 11/05/19 03:02) Hives Home Medications: Gabapentin 300 mg PO BID 09/20/19 Omeprazole [Prilosec] 40 mg PO DAILY 09/20/19 Oxybutynin Chloride [Ditropan*] 5 mg PO TID 09/20/19 Spironolactone [Aldactone] 50 mg PO DAILY 09/20/19 Cranberry 1,500 mg PO DAILY 09/21/19 Folic Acid 1 mg PO DAILY 09/21/19 Iron 65 mg PO BID 09/21/19 Metformin HCl [Glucophage*] 500 mg PO BIDWM 09/21/19 allopurinoL [Allopurinol] 100 mg PO BID 09/21/19 Propranolol [Inderal*] 20 mg PO BID #30 tab 09/25/19 Levothyroxine Sodium [Synthroid] 100 mcg PO DAILY 11/05/19 Rifaximin [Xifaxan] 550 mg PO BID #60 tablet 11/07/19 Furosemide [Lasix*] 40 mg PO DAILY 07/25/20 Lactulose [Cephulac*] 15 ml PO DAILY 07/25/20 - Past Medical/Surgical History Has patient received pneumonia vaccine in the past: Yes Diabetic: Yes -: HTN -: DM -: Hypothyroidism -: RA -: OA -: R Knee Replace -: Hysterectomy -: back sx - sept 2019 - Family History Mother Medical History: Diabetes Father Medical History: Hypertension, Other (see notes) Notes: RA - Social History Smoking Status: Never smoker Alcohol use: No CD- Drugs: No Caffeine use: No Place of Residence: Home Review of Systems 10-point ROS is otherwise unremarkable Physical Examination - Vital Signs Temperature: 97.4 F Blood Pressure: 102/55 Pulse: 61 Respirations: 18 Pulse Ox (%): 95 - Physical Exam General: Alert, In no apparent distress, Oriented x3 HEENT: Atraumatic, PERRLA, Mucous membr. moist/pink, EOMI, Sclerae nonicteric Neck: Supple, 2+ carotid pulse no bruit, No LAD, Without JVD or thyroid abnormality Respiratory: Clear to auscultation bilaterally, Normal air movement Cardiovascular: Regular rate/rhythm, Normal S1 S2, No murmurs Gastrointestinal: Normal bowel sounds, Soft and benign, No rebound, No guarding, Distended, Ascites Musculoskeletal: No clubbing, No swelling, No tenderness Integumentary: No rashes Neurological: Normal gait, Normal speech, Normal strength at 5/5 x4 extr, Normal tone, Sensation intact, Cranial nerves 3-12 intact - Studies Microbiology Data (last 24 hrs): 07/25/20 06:40 Blood - Blood Anaerobic Blood Culture - Final Assessment & Plan - Problems (Diagnosis) (1) Alcoholic cirrhosis of liver with ascites Current Visit: Yes Status: Acute (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 Continue with Lasix and Aldactone 2. Abdominal ultrasound will be ordered. 3. Ultrasound-guided paracentesis. 4. Platelet transfusion 5. Continue lactulose 6. Propanolol to help keep portal hypertension controlled 7. GI and DVT prophylaxis Patient would benefit from going to a tertiary care facility to treat her hepatic cirrhosis Discharge Plan: Home Plan to discharge in: Greater than 2 days - Advance Directives Does patient have a Living Will: No Does patient have a Durable POA for Healthcare: No - Code Status/Comfort Care Code Status Assessed: Yes Code Status: Full Code Critical Care: No Time Spent Managing PTS Care (In Minutes): 45
--- NOTE | 2020-07-26 14:35 | P.PN ---
Subjective Date of Service: 07/26/20 Continuing with platelet transfusion; awaiting for ultrasound-guided paracentesis. Depending on how much fluid is taken out, patient may get albumin drip. Review of Systems 10-point ROS is otherwise unremarkable Physical Examination - Vital Signs Temperature: 97.4 F Blood Pressure: 102/55 Pulse: 61 Respirations: 18 Pulse Ox (%): 95 - Physical Exam General: Alert, In no apparent distress, Oriented x3 Respiratory: Diminished, Crackles/rales Cardiovascular: Regular rate/rhythm, Normal S1 S2, No murmurs Gastrointestinal: Normal bowel sounds, Soft and benign, No rebound, No guarding, Distended, Ascites Musculoskeletal: No tenderness, Swelling Neurological: Sensation intact, Cranial nerves 3-12 intact - Studies Microbiology Data (last 24 hrs): 07/25/20 06:40 Blood - Blood Anaerobic Blood Culture - Final Medications List Reviewed: Yes Assessment & Plan - Problems (Diagnosis) (1) Alcoholic cirrhosis of liver with ascites Current Visit: Yes Status: Acute (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 Continue with Lasix and Aldactone 2. Abdominal ultrasound with a large amount of ascites 3. Ultrasound-guided paracentesis pending 4. Platelet transfusion 5. Continue lactulose 6. Propanolol to help keep portal hypertension controlled 7. GI and DVT prophylaxis Patient would benefit from going to a tertiary care facility to treat her hepatic cirrhosis Discharge Plan: Home Plan to discharge in: 24 Hours - Advance Directives Does patient have a Living Will: No Does patient have a Durable POA for Healthcare: No - Code Status/Comfort Care Code Status: Full Code Critical Care: No Time Spent Managing PTS Care (In Minutes): 35
[2020-07-26] MEDS: LACTULOSE 20 GM/30 ML UCUP PO SCH ×2 (15:00→17:04)
[2020-07-26 16:03] LABS: Absolute Lymphocytes (CBC) 0.3 K/uL (0.7-4.9); Basophils % 0.6 % (0-1.3); Hematocrit 34.7 % (36.0-45.0); Lymphocytes % 16.4 % (15.3-44.8); MPV 8.4 fL (7.6-11.3); RBC Red Blood Cell Count 3.19 M/uL (3.86-4.86)
[2020-07-26] MEDS: METFORMIN HCL 500 MG TAB PO SCH (17:04)
[2020-07-26] MEDS: NA CHLORIDE 0.9% 1,000 ML IV SCH (17:20)
[2020-07-26 17:34] LABS: Blood Morphology Comment NOTED (NOT SEEN); Macrocytosis 1+; Platelet Estimate DECR; White Blood Cell Scan OK (OK)
[2020-07-26] MEDS: Rifaximin 550 MG Tab PO SCH (21:39)
[2020-07-26] MEDS: GABAPENTIN 300 MG CAP PO SCH (21:39)
[2020-07-26] MEDS: allopurinoL 100 MG TAB PO SCH (21:40)
[2020-07-26] MEDS: PROPRANOLOL HCL 10 MG TAB PO SCH (21:40)
[2020-07-26] MEDS: OXYBUTYNIN CHLORIDE 5 MG TAB PO SCH (21:41)
[2020-07-27] MEDS: LACTULOSE 20 GM/30 ML UCUP PO SCH ×5 (01:14→23:39)
[2020-07-27] MEDS: NA CHLORIDE 0.9% 1,000 ML IV SCH (03:14)
[2020-07-27] MEDS: LEVOTHYROXINE SOD 0.1 MG TAB PO SCH (05:25)
[2020-07-27] MEDS: allopurinoL 100 MG TAB PO SCH ×2 (08:53→21:21)
[2020-07-27] MEDS: PROPRANOLOL HCL 10 MG TAB PO SCH ×2 (08:53→21:00)
[2020-07-27] MEDS: GABAPENTIN 300 MG CAP PO SCH ×2 (08:53→21:21)
[2020-07-27] MEDS: SPIRONOLACTONE 25 MG TABLET PO SCH (08:54)
[2020-07-27] MEDS: FOLIC ACID 1 MG TABLET PO SCH (08:55)
[2020-07-27] MEDS: METFORMIN HCL 500 MG TAB PO SCH ×2 (08:55→16:23)
[2020-07-27] MEDS: OXYBUTYNIN CHLORIDE 5 MG TAB PO SCH ×3 (08:55→21:21)
[2020-07-27] MEDS: ENOXAPARIN 40 MG/0.4 ML SQ SCH (08:56)
[2020-07-27] MEDS: CEFTRIAXONE/SWI 1gm 1 GM/10 ML SYR IV SCH ×2 (08:56→21:21)
[2020-07-27] MEDS: Rifaximin 550 MG Tab PO SCH ×2 (08:56→21:21)
[2020-07-27] MEDS ORDERED: LEVOTHYROXINE SODIUM 100 MCG PO SCH (09:00)
[2020-07-27] MEDS: FUROSEMIDE 40 MG TABLET PO SCH (09:00)
[2020-07-27] MEDS ORDERED: HOME MED 1 EA UNK (Spironolactone [Aldactone] 50 MG) PO SCH (09:00)
[2020-07-27] MEDS ORDERED: HOME MED 1 EA UNK (Omeprazole [Prilosec] 40 MG) PO SCH (09:00)
[2020-07-27] MEDS: PANTOPRAZOLE 40MG TABLET PO SCH (09:03)
[2020-07-27] MEDS: AZITHROMYCIN IV 500 MG in NA CHLORIDE 0.9% 250 ML IVPB SCH (09:03)
[2020-07-27] MEDS ORDERED: ALBUMIN HUMAN 25% 100 ML IV ONE (12:22)
--- NOTE | 2020-07-27 15:16 | RAD REPORT ---
EXAM DESCRIPTION: RAD - Chest Single View - 07/27/2020 3:07 pm CLINICAL HISTORY: pneumonia/edema COMPARISON: Portable July 25, portable July 23 TECHNIQUE: AP portable chest image was obtained 07/27/2020 3:07 pm . FINDINGS: Lung volumes are low. Left greater than right pleural and parenchymal opacification are pr esent. Findings are not substantially different. Heart size is stable. Vasculature may be slightly le ss prominent. No pneumothorax. No acute bony abnormality seen. No acute aortic findings suspected. IMPRESSION: Bilateral [id number]-right pleural and parenchymal opacification not substantiall y different from comparison.
[2020-07-27 15:24] LABS: Absolute Lymphocytes (CBC) 0.2 K/uL (0.7-4.9); Basophils % 0.5 % (0-1.3); Hematocrit 33.5 % (36.0-45.0); Lymphocytes % 8.9 % (15.3-44.8); RBC Red Blood Cell Count 3.11 M/uL (3.86-4.86)
[2020-07-27 15:43] LABS: Magnesium 2.3 mg/dL (1.8-2.4); Potassium 3.4 mmol/L (3.5-5.1)
[2020-07-27] MEDS: ENSURE HIGH PROTEIN 237 ML CAN PO SCH (16:23)
[2020-07-27] MEDS ORDERED: POTASSIUM 25 MEQ EFFERV TAB PO ONE (17:20)
[2020-07-27] MEDS ORDERED: ALBUMIN HUMAN 25% 50 ML IV ONE (18:22)
[2020-07-27] MEDS ORDERED: OSELTAMIVIR 75 MG CAP PO SCH (22:31)
[2020-07-27] MEDS ORDERED: OSELTAMIVIR 75 MG CAP PO ONE (23:30)
[2020-07-28] MEDS: LACTULOSE 20 GM/30 ML UCUP PO SCH ×4 (05:49→23:10)
[2020-07-28] MEDS: LEVOTHYROXINE SOD 0.1 MG TAB PO SCH (05:49)
[2020-07-28 07:45] LABS: Potassium 3.9 mmol/L (3.5-5.1)
[2020-07-28] MEDS ORDERED: CALCIUM GLUC 10% INJ 4.65 MEQ in NA CHLORIDE 0.9% 100 ML IV ONE (07:55)
[2020-07-28] MEDS: AZITHROMYCIN IV 500 MG in NA CHLORIDE 0.9% 250 ML IVPB SCH (09:01)
[2020-07-28] MEDS: FOLIC ACID 1 MG TABLET PO SCH (09:02)
[2020-07-28] MEDS: OXYBUTYNIN CHLORIDE 5 MG TAB PO SCH ×3 (09:02→20:56)
[2020-07-28] MEDS: CEFTRIAXONE/SWI 1gm 1 GM/10 ML SYR IV SCH ×2 (09:02→20:56)
[2020-07-28] MEDS: allopurinoL 100 MG TAB PO SCH ×2 (09:02→20:56)
[2020-07-28] MEDS: GABAPENTIN 300 MG CAP PO SCH ×2 (09:02→20:56)
[2020-07-28] MEDS: PANTOPRAZOLE 40MG TABLET PO SCH (09:02)
[2020-07-28] MEDS: METFORMIN HCL 500 MG TAB PO SCH ×2 (09:02→16:40)
[2020-07-28] MEDS: Rifaximin 550 MG Tab PO SCH ×2 (09:03→20:56)
[2020-07-28] MEDS: ENSURE HIGH PROTEIN 237 ML CAN PO SCH ×3 (09:04→16:41)
[2020-07-28] MEDS: OSELTAMIVIR PHOSPHATE 30 MG/5 ML SUSPENSION UD PO SCH ×2 (09:06→20:56)
[2020-07-28] MEDS: PROPRANOLOL HCL 10 MG TAB PO SCH ×2 (11:30→20:58)
[2020-07-28] MEDS: FUROSEMIDE 40 MG TABLET PO SCH (11:30)
[2020-07-28] MEDS: SPIRONOLACTONE 25 MG TABLET PO SCH (11:34)
--- NOTE | 2020-07-28 12:15 | P.PN ---
Subjective Date of Service: 07/27/20 Patient is still a little short of breath; still hypoxic; arranging for home oxygen; check flu status Review of Systems 10-point ROS is otherwise unremarkable Physical Examination - Vital Signs Temperature: 97 F Blood Pressure: 104/50 Pulse: 78 Respirations: 18 Pulse Ox (%): 96 - Physical Exam General: Alert, In no apparent distress, Oriented x3 Respiratory: Diminished, Crackles/rales, Rhonchi/gurgles Cardiovascular: Regular rate/rhythm, Normal S1 S2, Systolic murmur Gastrointestinal: Normal bowel sounds, Soft and benign, Non-distended, No tenderness Musculoskeletal: No clubbing, No swelling, No tenderness Neurological: Normal strength at 5/5 x4 extr, Sensation intact, Cranial nerves 3-12 intact - Studies Medications List Reviewed: Yes Assessment & Plan - Problems (Diagnosis) (1) Alcoholic cirrhosis of liver with ascites Current Visit: Yes Status: Acute (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 Started on Tamiflu 2. Continue with Lasix and Aldactone 3. s/p paracentesis with removal of 6L 4. Platelet transfusion completed 5. Continue lactulose 6. Hold propanolol as blood pressure low 7. GI and DVT prophylaxis Patient would benefit from follow-up at a tertiary care facility to treat her hepatic cirrhosis Discharge Plan: Home Plan to discharge in: 48 Hours - Advance Directives Does patient have a Living Will: No Does patient have a Durable POA for Healthcare: No - Code Status/Comfort Care Code Status: Full Code Critical Care: No Time Spent Managing PTS Care (In Minutes): 35
[2020-07-28] MEDS ORDERED: POTASSIUM CL SA 10 MEQ TAB PO ONE (12:41)
[2020-07-28] MEDS ORDERED: FUROSEMIDE 20 MG/ 2ML VIAL IV ONE (12:43)
[2020-07-28] MEDS ORDERED: ALBUMIN HUMAN 25% 50 ML IV ONE (12:43)
--- NOTE | 2020-07-28 20:51 | RAD REPORT ---
EXAM DESCRIPTION: CT Angiography Chest With Intravenous Contrast CLINICAL HISTORY: The patient is 69 years old and is Female; PE shortness of breath abdominal disten tion and cirrhosis TECHNIQUE: Axial computed tomographic angiography images of the chest with intravenous contrast. S agittal and coronal reformatted images were created and reviewed. This CT exam was performed using one or more of the following dose reduction techniques: automated exposure control, adjustment of t he mA and/or kV according to patient size, and/or use of iterative reconstruction technique. MIP re constructed images were created and reviewed. COMPARISON: CXR July 25, 2020. FINDINGS: Pulmonary arteries: No PE identified. Aorta: No acute findings in the thoracic aorta. No thoracic aortic aneurysm. Lungs: Left lower lobe and lingula linear and subsegmental atelectasis. Right lower lobe linear atelectasis. No mass. Pleural space: Small left pleural effusion. No pneumothorax. Heart: Cardiomegaly without significant pericardial fluid. No evidence of RV dysfunction. Bones/joints: No acute thoracic compression fracture. No acute sternal fracture. Old healed fracture deformity proximal right humerus. No dislocation. Soft tissues: Unremarkable. Lymph nodes: No pathologically enlarged mediastinal or hilar lymph nodes lymph nodes. Liver: Nodular liver consistent with hepatic cirrhosis. 1.3 cm hepatic simple cyst. No follow-up imaging recommended. Spleen: Splenomegaly. Intraperitoneal space: Moderate ascites in the upper abdomen. IMPRESSION: 1. No PE identified. 2. Bibasilar atelectasis as above. 3. Small left pleural effusion. 4. Upper abdominal findings as above. Electronically signed by: Ariana Cardenas MD 07/28/2020 7:39 AM CDT Due to temporary technical issues with the PACS/Fluency reporting system, reports are being signed by the in house radiologist without review as a courtesy to ensure prompt reporting. The interpreting r adiologist is fully responsible for the content of the report.
[2020-07-29] MEDS: LEVOTHYROXINE SOD 0.1 MG TAB PO SCH (05:39)
[2020-07-29] MEDS: LACTULOSE 20 GM/30 ML UCUP PO SCH ×3 (05:39→17:29)
--- NOTE | 2020-07-29 05:41 | P.PN ---
Subjective Date of Service: 07/28/20 Patient did not have O2 on after CT scan. Oxygen saturations on room air were in the 60s according to respiratory therapy. Placed back on O2 by nasal cannula at 3 L. Oxygen saturations are 95%. Patient looks really weak and does not appear to be in any shape to go home. Begin physical therapy to start working with patient. Probably would benefit from retirement facility placement if she is agreeable. Continue Tamiflu for influenza B positive test. CT scan pending. Review of Systems 10-point ROS is otherwise unremarkable Physical Examination - Vital Signs Temperature: 97 F Blood Pressure: 104/50 Pulse: 78 Respirations: 18 Pulse Ox (%): 96 - Physical Exam General: Alert, In no apparent distress, Oriented x3, Obese Respiratory: Diminished, Crackles/rales Cardiovascular: Regular rate/rhythm, Normal S1 S2, No murmurs Gastrointestinal: Normal bowel sounds, Soft and benign, No tenderness, Distended, Ascites Musculoskeletal: Swelling Neurological: Sensation intact, Cranial nerves 3-12 intact, Abnormal gait, Abnormal strength Lymphatics: No axilla or inguinal lymphadenopathy - Studies Medications List Reviewed: Yes Assessment & Plan - Problems (Diagnosis) (1) Influenza B Current Visit: Yes Status: Acute (2) Alcoholic cirrhosis of liver with ascites Current Visit: Yes Status: Acute (3) 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 Started on Tamiflu 2. Continue with Lasix and Aldactone 3. s/p paracentesis with removal of 6L 4. Platelet transfusion completed initially to get paracentesis 5. Continue lactulose 6. Hold propanolol as blood pressure low 7. GI and DVT prophylaxis Patient may need to go to retirement facility placement. Will get physical therapy evaluation Patient would benefit from follow-up at a tertiary care facility to treat her hepatic cirrhosis Plan to discharge in: 48 Hours - Advance Directives Does patient have a Living Will: No Does patient have a Durable POA for Healthcare: No - Code Status/Comfort Care Code Status: Full Code Critical Care: No Time Spent Managing PTS Care (In Minutes): 35
[2020-07-29 06:42] LABS: Potassium 3.6 mmol/L (3.5-5.1)
[2020-07-29] MEDS: ENSURE HIGH PROTEIN 237 ML CAN PO SCH ×3 (07:30→16:30)
[2020-07-29] MEDS: SPIRONOLACTONE 25 MG TABLET PO SCH (09:00)
[2020-07-29] MEDS: FUROSEMIDE 40 MG TABLET PO SCH (09:00)
[2020-07-29] MEDS: PROPRANOLOL HCL 10 MG TAB PO SCH ×2 (09:00→21:54)
[2020-07-29] MEDS: GABAPENTIN 300 MG CAP PO SCH ×2 (09:36→21:55)
[2020-07-29] MEDS: PANTOPRAZOLE 40MG TABLET PO SCH (09:36)
[2020-07-29] MEDS: FOLIC ACID 1 MG TABLET PO SCH (09:36)
[2020-07-29] MEDS: OXYBUTYNIN CHLORIDE 5 MG TAB PO SCH ×3 (09:36→21:55)
[2020-07-29] MEDS: METFORMIN HCL 500 MG TAB PO SCH (09:36)
[2020-07-29] MEDS: allopurinoL 100 MG TAB PO SCH ×2 (09:36→21:54)
[2020-07-29] MEDS: CEFTRIAXONE/SWI 1gm 1 GM/10 ML SYR IV SCH ×2 (09:36→21:54)
[2020-07-29] MEDS: OSELTAMIVIR PHOSPHATE 30 MG/5 ML SUSPENSION UD PO SCH ×2 (09:38→21:54)
[2020-07-29] MEDS: AZITHROMYCIN IV 500 MG in NA CHLORIDE 0.9% 250 ML IVPB SCH (09:38)
[2020-07-29] MEDS: Rifaximin 550 MG Tab PO SCH (09:40)
--- NOTE | 2020-07-29 13:07 | P.PN ---
Subjective Date of Service: 07/29/20 Chief Complaint: Fluid overload Subjective: Improving (Still very weak.) Physical Examination - Vital Signs Temperature: 97.8 F Blood Pressure: 96/51 Pulse: 70 Respirations: 16 Pulse Ox (%): 95 - Physical Exam General: Alert, Cooperative HEENT: Atraumatic Neck: Supple Respiratory: Clear to auscultation bilaterally, Normal air movement Cardiovascular: Normal pulses, Regular rate/rhythm Gastrointestinal: No rebound, No guarding Musculoskeletal: No erythema, No tenderness, No warmth Integumentary: No erythema, No warmth, No cyanosis Neurological: Normal speech, Normal strength at 5/5 x4 extr, Normal tone, Normal affect - Studies Medications List Reviewed: Yes Assessment & Plan Discharge Plan: Other (half-way facility) Plan to discharge in: 48 Hours Physician Review Additional Text: Impression: Dyspnea secondary to pneumonia with positive influenza B Alcoholic cirrhosis Felty syndrome Hypothyroidism Rheumatoid arthritis Diabetes mellitus type 2 Chronic thrombocytopenia likely related to alcoholic cirrhosis GERD Plan: Continue diuresis. Patient on Lasix and Aldactone. Will monitor input and output closely. Patient status post paracentesis with 6 L removed. Platelets stable at this time. Will monitor closely. Continue lactulose. PT to further evaluate patient. Anticipate need for skilled placement. Will contact donor services specialist to help with this. Medications reviewed. May need to hold blood pressure medication. Medications reviewed. Discontinue metformin. Will check A1c. Will provide sliding scale. Anticipate approval to skilled placement once approved. Time Spent Managing Pts Care (In Minutes): 55
[2020-07-30] MEDS: LACTULOSE 20 GM/30 ML UCUP PO SCH ×4 (00:33→17:00)
[2020-07-30] MEDS: LEVOTHYROXINE SOD 0.1 MG TAB PO SCH (05:26)
[2020-07-30 06:00] LABS: Absolute Lymphocytes (CBC) 0.2 K/uL (0.7-4.9); Basophils % 0.4 % (0-1.3); Hematocrit 30.8 % (36.0-45.0); Lymphocytes % 6.1 % (15.3-44.8); MPV 9.3 fL (7.6-11.3); RBC Red Blood Cell Count 2.86 M/uL (3.86-4.86)
[2020-07-30 06:09] LABS: Magnesium 2.6 mg/dL (1.8-2.4); Phosphorus 2.8 mg/dL (2.5-4.9); Potassium 3.6 mmol/L (3.5-5.1)
[2020-07-30] MEDS: ENSURE HIGH PROTEIN 237 ML CAN PO SCH ×3 (07:30→16:30)
[2020-07-30] MEDS: PROPRANOLOL HCL 10 MG TAB PO SCH ×2 (09:00→21:00)
[2020-07-30] MEDS: SPIRONOLACTONE 25 MG TABLET PO SCH (09:00)
[2020-07-30] MEDS ORDERED: POTASSIUM 25 MEQ EFFERV TAB PO ONE (09:00)
[2020-07-30] MEDS: OSELTAMIVIR PHOSPHATE 30 MG/5 ML SUSPENSION UD PO SCH ×2 (10:10→21:30)
[2020-07-30] MEDS: CEFTRIAXONE/SWI 1gm 1 GM/10 ML SYR IV SCH (10:10)
[2020-07-30] MEDS: allopurinoL 100 MG TAB PO SCH ×2 (10:10→21:28)
[2020-07-30] MEDS: OXYBUTYNIN CHLORIDE 5 MG TAB PO SCH ×3 (10:11→21:28)
[2020-07-30] MEDS: FUROSEMIDE 40 MG TABLET PO SCH (10:11)
[2020-07-30] MEDS: GABAPENTIN 300 MG CAP PO SCH ×2 (10:11→21:28)
[2020-07-30] MEDS: FOLIC ACID 1 MG TABLET PO SCH (10:12)
[2020-07-30] MEDS: PANTOPRAZOLE 40MG TABLET PO SCH (10:12)
[2020-07-30] MEDS: AZITHROMYCIN IV 500 MG in NA CHLORIDE 0.9% 250 ML IVPB SCH (10:13)
--- NOTE | 2020-07-30 13:05 | P.PN ---
Subjective Date of Service: 07/30/20 Chief Complaint: Fluid overload Subjective: Improving, Demented Physical Examination - Vital Signs Temperature: 97.9 F Blood Pressure: 107/58 Pulse: 62 Respirations: 18 Pulse Ox (%): 96 - Physical Exam General: Alert, Demented HEENT: Atraumatic Neck: Supple Respiratory: Clear to auscultation bilaterally, Normal air movement Cardiovascular: Normal pulses, Regular rate/rhythm Neurological: Normal speech, Normal strength at 5/5 x4 extr, Normal tone, Dementia - Studies Microbiology Data (last 24 hrs): 07/25/20 06:40 Blood - Blood Aerobic Blood Culture - Final No growth in 5 days. 07/25/20 06:40 Blood - Blood Anaerobic Blood Culture - Final 07/25/20 06:25 Blood - Blood Aerobic Blood Culture - Final No growth in 5 days. 07/25/20 06:25 Blood - Blood Anaerobic Blood Culture - Final No growth in 5 days. Medications List Reviewed: Yes Assessment & Plan Discharge Plan: Other (SNF) Plan to discharge in: 48 Hours Physician Review Additional Text: Impression: Dyspnea secondary to pleural effusion related to cirrhosis and positive influen za B Alcoholic cirrhosis Felty syndrome Hypothyroidism Rheumatoid arthritis Diabetes mellitus type 2 Chronic thrombocytopenia likely related to alcoholic cirrhosis GERD Plan: Dyspnea secondary to pleural effusion related to cirrhosis and positive influenza B: Continue treatment for influenza. Will transition to oral medication. Continue with diuresis. Now on Tamiflu. Continue to monitor closely. Wean off oxygen. Will have PT assess. Spoke to high school social studies tutor to look in to skilled placement for the patient. Family is to come and talk further with the patient. Alcoholic cirrhosis: Patient has received paracentesis during her stay. Continue to monitor closely. Continue lactulose. Felty syndrome: Overall stable. Hypothyroidism: Continue medication. Rheumatoid arthritis: Continue physical therapy. Fall precaution in place. Diabetes mellitus type 2: Continue Accu-Cheks. Will monitor sliding scale. Will obtain A1c. Chronic thrombocytopenia likely related to alcoholic cirrhosis: Overall stable. Will monitor closely. GERD: Continue medication Time Spent Managing Pts Care (In Minutes): 55
[2020-07-31] MEDS: LACTULOSE 20 GM/30 ML UCUP PO SCH ×5 (00:49→23:53)
[2020-07-31] MEDS: LEVOTHYROXINE SOD 0.1 MG TAB PO SCH (06:06)
[2020-07-31 06:22] LABS: Absolute Lymphocytes (CBC) 0.2 K/uL (0.7-4.9); Basophils % 0.6 % (0-1.3); Hematocrit 32.8 % (36.0-45.0); Lymphocytes % 7.3 % (15.3-44.8); MPV 8.2 fL (7.6-11.3); RBC Red Blood Cell Count 3.03 M/uL (3.86-4.86)
[2020-07-31 06:27] LABS: Magnesium 2.5 mg/dL (1.8-2.4); Potassium 3.4 mmol/L (3.5-5.1)
[2020-07-31 08:30] LABS: Blood Morphology Comment NOTED (NOT SEEN); Platelet Estimate DECR; White Blood Cell Scan OK (OK)
[2020-07-31 08:31] LABS: Anisocytosis 1+; Basophilic Stippling 1+; Macrocytosis 1+
[2020-07-31] MEDS ORDERED: POTASSIUM CL SA 10 MEQ TAB PO ONE (09:00)
[2020-07-31] MEDS: OSELTAMIVIR PHOSPHATE 30 MG/5 ML SUSPENSION UD PO SCH ×2 (09:49→23:54)
[2020-07-31] MEDS: ENSURE HIGH PROTEIN 237 ML CAN PO SCH ×3 (09:49→16:30)
[2020-07-31] MEDS: PROPRANOLOL HCL 10 MG TAB PO SCH ×2 (09:50→23:53)
[2020-07-31] MEDS: FOLIC ACID 1 MG TABLET PO SCH (09:50)
[2020-07-31] MEDS: OXYBUTYNIN CHLORIDE 5 MG TAB PO SCH ×3 (09:50→23:54)
[2020-07-31] MEDS: GABAPENTIN 300 MG CAP PO SCH (09:50)
[2020-07-31] MEDS: PANTOPRAZOLE 40MG TABLET PO SCH (09:51)
[2020-07-31] MEDS: FUROSEMIDE 40 MG TABLET PO SCH (09:51)
[2020-07-31] MEDS: allopurinoL 100 MG TAB PO SCH ×2 (09:51→23:54)
[2020-07-31] MEDS: SPIRONOLACTONE 25 MG TABLET PO SCH (09:51)
[2020-07-31] MEDS ORDERED: GABAPENTIN 300 MG CAP PO SCH (12:30)
--- NOTE | 2020-07-31 12:36 | P.PN ---
Subjective Date of Service: 07/31/20 Chief Complaint: Fluid overload Subjective: Other (Patient overall stable. No complaints noted today.) Physical Examination - Vital Signs Temperature: 97.2 F Blood Pressure: 92/45 Pulse: 120 Respirations: 17 Pulse Ox (%): 95 - Physical Exam General: Alert, In no apparent distress, Cooperative HEENT: Atraumatic Neck: Supple Respiratory: Clear to auscultation bilaterally, Normal air movement Cardiovascular: Normal pulses, Regular rate/rhythm Gastrointestinal: Normal bowel sounds, No masses, No rebound, No guarding, Ascites Integumentary: Other (Swelling to the lower extremities improved) Neurological: Normal speech, Normal strength at 5/5 x4 extr, Normal tone, Normal affect - Studies Medications List Reviewed: Yes Assessment & Plan Discharge Plan: Home (With hospice) Plan to discharge in: 24 Hours Physician Review Additional Text: Impression: Dyspnea secondary to pleural effusion and ascites related to advanced alcoholic cirrhosis and positive influenza B Advanced Alcoholic cirrhosis with history of gastric varices Felty syndrome Hypothyroidism Rheumatoid arthritis Hyperglycemia Chronic thrombocytopenia likely related to alcoholic cirrhosis GERD with history of gastric varices Plan: Dyspnea secondary to pleural effusion and ascites related to advanced alcoholic cirrhosis and positive influenza B: Patient continues with influenza treatment. Will continue to wean off oxygen. Encourage incentive spirometer. Patient has received paracentesis during her stay. Continue with diuretic therapy. Will tried ambulate with physical therapy. Spoke at length with patient and family concerning advanced directives and plan of care. Patient wishes to remain full code but would not want to be on ventilator long-term. In concern for discharge plan of care, patient of family has agreed to hospice at home. Will discuss with social service technician to help in this process. Will check to see if the patient can ambulate. Continue with cirrhosis treatment. Medications reviewed. Discontinue Neurontin as this may increase sedation. Educated on the importance of at least 3-4 bowel movements per day. Advanced Alcoholic cirrhosis with history of gastric varices: Patient has received paracentesis during her stay. Patient with some ascites but continues on diuretic therapy. Fluid restriction in place. Continue lactulose and Xifaxan which was brought by family member. Patient understands that she has advanced disease. She is not a candidate for liver transplant. Advanced directives address. She wishes to be full code at this time. She would like hospice at home. Continue current management at this time. Felty syndrome: Overall stable. Hypothyroidism: Continue medication. Rheumatoid arthritis: Continue physical therapy. Fall precaution in place. Will discontinue gabapentin as this may increase sedation. Hyperglycemia: A1c 5.1. No in indication of diabetes at this time. Chronic thrombocytopenia likely related to alcoholic cirrhosis: Overall stable. Will monitor closely. GERD with history of gastric varices: Continue medication Time Spent Managing Pts Care (In Minutes): 55
[2020-07-31] MEDS: XIFAXAN (RIFAXIMIN) 550 MG TABLETS PO SCH ×2 (14:46→23:54)
[2020-07-31] MEDS ORDERED: POTASSIUM 25 MEQ EFFERV TAB PO ONE (17:00)
[2020-08-01 05:38] LABS: Absolute Lymphocytes (CBC) 0.2 K/uL (0.7-4.9); Basophils % 0.3 % (0-1.3); Lymphocytes % 8.3 % (15.3-44.8); MPV 9.1 fL (7.6-11.3); RBC Red Blood Cell Count 3.06 M/uL (3.86-4.86)
[2020-08-01 05:45] LABS: Magnesium 2.5 mg/dL (1.8-2.4); Potassium 3.9 mmol/L (3.5-5.1)
[2020-08-01] MEDS: LACTULOSE 20 GM/30 ML UCUP PO SCH ×3 (06:16→16:50)
[2020-08-01] MEDS: LEVOTHYROXINE SOD 0.1 MG TAB PO SCH (06:16)
[2020-08-01] MEDS: ENSURE HIGH PROTEIN 237 ML CAN PO SCH ×3 (07:30→16:53)
[2020-08-01] MEDS: PROPRANOLOL HCL 10 MG TAB PO SCH ×2 (09:00→22:46)
[2020-08-01] MEDS: allopurinoL 100 MG TAB PO SCH ×2 (09:56→22:46)
[2020-08-01] MEDS: POTASSIUM CL SA 10 MEQ TAB PO ONE ×2 (09:56→10:02)
[2020-08-01] MEDS: XIFAXAN (RIFAXIMIN) 550 MG TABLETS PO SCH ×2 (09:56→22:47)
[2020-08-01] MEDS: FUROSEMIDE 40 MG TABLET PO SCH (09:57)
[2020-08-01] MEDS: PANTOPRAZOLE 40MG TABLET PO SCH (09:59)
[2020-08-01] MEDS: SPIRONOLACTONE 25 MG TABLET PO SCH (10:00)
[2020-08-01] MEDS: FOLIC ACID 1 MG TABLET PO SCH (10:00)
[2020-08-01] MEDS: OSELTAMIVIR PHOSPHATE 30 MG/5 ML SUSPENSION UD PO SCH ×2 (10:05→22:47)
[2020-08-01] MEDS: OXYBUTYNIN CHLORIDE 5 MG TAB PO SCH ×3 (10:05→22:46)
[2020-08-01 12:08] LABS: Protime INR 1.18
--- NOTE | 2020-08-01 14:16 | P.PN ---
Subjective Date of Service: 08/01/20 Chief Complaint: Fluid overload Subjective: Doing well Physical Examination - Vital Signs Temperature: 97.4 F Blood Pressure: 112/54 Pulse: 76 Respirations: 18 Pulse Ox (%): 97 - Physical Exam General: Alert, Cooperative HEENT: Atraumatic Neck: Supple Respiratory: Clear to auscultation bilaterally Cardiovascular: Normal pulses, Regular rate/rhythm Gastrointestinal: Ascites Neurological: Normal speech, Normal strength at 5/5 x4 extr, Normal tone, Normal affect - Studies Medications List Reviewed: Yes Assessment & Plan Discharge Plan: Home (with hospice) Plan to discharge in: 24 Hours Physician Review Additional Text: Impression: Dyspnea secondary to pleural effusion and ascites related to advanced alcoholic cirrhosis and positive influenza B Advanced Alcoholic cirrhosis with history of gastric varices Felty syndrome Hypothyroidism Rheumatoid arthritis Hyperglycemia Chronic thrombocytopenia likely related to alcoholic cirrhosis GERD with history of gastric varices Plan: Dyspnea secondary to pleural effusion and ascites related to advanced alcoholic cirrhosis and positive influenza B: Patient continues with influenza treatment. Will continue to wean off oxygen. Encourage incentive spirometer. Advance care planning address with patient and family. Will pursue hospice at home when discharge. Will also prepare for paracentesis tomorrow. Patient seems more alert off of Neurontin. Patient was still occasional pain. Will leave Neurontin at a lower dose as needed for pain at this time. Anticipate discharge tomorrow. Advanced Alcoholic cirrhosis with history of gastric varices: Patient has received paracentesis during her stay. Will order paracentesis for tomorrow. Patient with some ascites but continues on diuretic therapy. Fluid restriction in place. Continue lactulose and Xifaxan which was brought by family member. Patient understands that she has advanced disease. She is not a candidate for liver transplant. Advanced directives address. She wishes to be full code at this time. She would like hospice at home. Continue current management at this time. Felty syndrome: Overall stable. Hypothyroidism: Continue medication. Rheumatoid arthritis: Continue physical therapy. Fall precaution in place. Will discontinue gabapentin as this may increase sedation. Hyperglycemia: A1c 5.1. No in indication of diabetes at this time. Chronic thrombocytopenia likely related to alcoholic cirrhosis: Overall stable. Will monitor closely. GERD with history of gastric varices: Continue medication Time Spent Managing Pts Care (In Minutes): 55
[2020-08-01] MEDS ORDERED: GABAPENTIN 100 MG CAP PO PRN (14:17)
[2020-08-01] MEDS ORDERED: LACTULOSE 20 GM/30 ML UCUP PO ONE (17:00)
[2020-08-02 04:09] LABS: Absolute Lymphocytes (CBC) 0.2 K/uL (0.7-4.9); Basophils % 0.5 % (0-1.3); Hematocrit 29.8 % (36.0-45.0); Lymphocytes % 9.3 % (15.3-44.8); MPV 8.9 fL (7.6-11.3); Protime INR 1.15; RBC Red Blood Cell Count 2.79 M/uL (3.86-4.86)
[2020-08-02] MEDS ORDERED: NA CHLORIDE 0.9% 500 ML ONE (04:51)
[2020-08-02] MEDS: LACTULOSE 20 GM/30 ML UCUP PO SCH ×3 (06:00→11:00)
[2020-08-02] MEDS: LEVOTHYROXINE SOD 0.1 MG TAB PO SCH (06:16)
[2020-08-02] MEDS: ENSURE HIGH PROTEIN 237 ML CAN PO SCH ×2 (07:30→11:00)
[2020-08-02] MEDS: PANTOPRAZOLE 40MG TABLET PO SCH (08:40)
[2020-08-02] MEDS ORDERED: POTASSIUM CL SA 10 MEQ TAB PO ONE (08:43)
[2020-08-02] MEDS: PROPRANOLOL HCL 10 MG TAB PO SCH (09:00)
[2020-08-02] MEDS ORDERED: POTASSIUM CL 40 MEQ in NA CHLORIDE 0.9% 500 ML IV SCH (09:00)
--- NOTE | 2020-08-02 09:05 | RAD REPORT ---
EXAM DESCRIPTION: US - Paracentesis Proc Guidance - 08/02/2020 8:33 am CLINICAL HISTORY: Ascites COMPARISON: Paracentesis July 26 TECHNIQUE: The patient presents for ultrasound-guided paracentesis. The procedure, risks and altern atives were discussed with the patient in detail. Oral and written consent were obtained. Time out p rocedure was performed. The patient had no contraindicated allergy or medication history. PT, INR va lues within acceptable limits. training director blood draw showed a low platelet count of 46. The patien t received platelet transfusion subsequent to this blood drop. Preliminary sonographic evaluation identified right lower quadrant access site. The skin and deeper tissues were anesthetized with 1 percent lidocaine. Under direct sonographic visualization, a parace ntesis catheter was advanced into the peritoneal cavity. Approximately 15 mL of ascites retained for requested laboratory studies. Large volume drainage was initiated. Approximately 3 liters of ascites removed as requested. At the conclusion of the procedure, catheter was withdrawn and a bandage placed at the puncture site. Postprocedure care and precaution instructions were given to the patient. IMPRESSION: Ultrasound-guided paracentesis as detailed.
[2020-08-02] MEDS: FOLIC ACID 1 MG TABLET PO SCH (09:47)
[2020-08-02] MEDS: allopurinoL 100 MG TAB PO SCH (09:47)
[2020-08-02] MEDS: XIFAXAN (RIFAXIMIN) 550 MG TABLETS PO SCH (09:48)
[2020-08-02] MEDS: FUROSEMIDE 40 MG TABLET PO SCH (09:48)
[2020-08-02] MEDS ORDERED: ALBUMIN HUMAN 25% IV ONE (10:00)
[2020-08-02] MEDS: SPIRONOLACTONE 25 MG TABLET PO SCH (10:09)
[2020-08-02] MEDS: OXYBUTYNIN CHLORIDE 5 MG TAB PO SCH (10:09)
[2020-08-02] MEDS: OSELTAMIVIR PHOSPHATE 30 MG/5 ML SUSPENSION UD PO SCH (10:11)
[2020-08-02 11:00] VITALS: O2SAT 99
--- NOTE | 2020-08-02 11:22 | P.DS ---
Admission Date: 07/25/20 Discharge Date: 08/02/20 Primary Care Provider: none; Larisa Hess Disposition: HOSPICE-HOME Discharge Condition: GOOD Reason for Admission: Fluid overload Consultations: none Procedures: Paracentesis 07/25/2020: FINDINGS: Informed consent was obtained and time-out was performed. Patient's abdomen was prepped and draped in the usual sterile fashion. 1% lidocaine was used for local anesthetic purposes. A small skin incision was made along the right abdomen. A paracentesis catheter was guided into the peroneal cavity under sonographic guidance. A small amount of fluid was set aside for potential lab studies if desired. A large volume paracentesis was performed. The patient tolerated the procedure well. IMPRESSION: Successful ultrasound-guided paracentesis. CT Scan: COMPARISON: CXR July 25, 2020. FINDINGS: Pulmonary arteries: No PE identified. Aorta: No acute findings in the thoracic aorta. No thoracic aortic aneurysm. Lungs: Left lower lobe and lingula linear and subsegmental atelectasis. Right lower lobe linear atelectasis. No mass. Pleural space: Small left pleural effusion. No pneumothorax. Heart: Cardiomegaly without significant pericardial fluid. No evidence of RV dysfunction. Bones/joints: No acute thoracic compression fracture. No acute sternal fracture. Old healed fracture deformity proximal right humerus. No dislocation. Soft tissues: Unremarkable. Lymph nodes: No pathologically enlarged mediastinal or hilar lymph nodes lymph nodes. Liver: Nodular liver consistent with hepatic cirrhosis. 1.3 cm hepatic simple cyst. No follow-up imaging recommended. Spleen: Splenomegaly. Intraperitoneal space: Moderate ascites in the upper abdomen. IMPRESSION: 1. No PE identified. 2. Bibasilar atelectasis as above. 3. Small left pleural effusion. 4. Upper abdominal findings as above. Paracentesis 08/02/2020: alternatives were discussed with the patient in detail. Oral and written consent were obtained. Time out procedure was performed. The patient had no contraindicated allergy or medication history. PT, INR values within acceptable limits. 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 The patient received platelet transfusion subsequent to this blood drop. Preliminary sonographic evaluation identified right lower quadrant access site. The skin and deeper tissues were anesthetized with 1 percent lidocaine. Under direct sonographic visualization, a paracentesis catheter was advanced into the peritoneal cavity. Approximately 15 mL of ascites retained for requested laboratory studies. Large volume drainage was initiated. Approximately 3 liters of ascites removed as requested. At the conclusion of the procedure, catheter was withdrawn and a bandage placed at the puncture site. Postprocedure care and precaution instructions were given to the patient. IMPRESSION: Ultrasound-guided paracentesis as detailed. 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 Patient presented with increased ascites with shortness of breath. Patient admitted for further evaluation and treatment. Patient had paracentesis 1 week prior to admission. Hospital Course: Patient presented with dyspnea secondary to small left pleural effusion and severe ascites. Patient with advanced alcoholic cirrhosis. Patient was admitted for further evaluation and treatment. Patient required paracentesis on 07/25/2020. 6 L removed at that time. Patient continued on her medication. Patient was also found to have influenza B. She was treated with Tamiflu. She has completed treatment. Her progress was slow. Patient required another paracentesis on 08/02/2020. 3 L removed. Patient remains on diuretic therapy and fluid restriction. Patient also takes lactulose and Xifaxan. Patient is seen by GI as an outpatient. Patient is not a candidate for liver transplant due to her other chronic conditions. This has been addressed in the past. Patient actually had a paracentesis prior to admission. It seems that her liver cirrhosis is getting worse over time. Advanced directives address in detail along with advanced care planning. After further evaluation patient remains full code. But the patient desired hospice at home. Hospice at home has been arranged. Patient will continue with home oxygen to maintain sats above 93%. Patient currently on 2 L. at discharge patient will continue with a 1500 cc per day fluid restriction and low-salt diet. At discharge patient will continue with Lasix 40 mg daily and Aldactone 50 mg daily. The patient will continue with lactulose 20 mg per 30 mL 4 times a day to maintain 3-4 bowel movements per day. The patient will also continue with Xifaxan 550 mg 1 pill twice daily. Recommend follow up with GI in 1-2 weeks to follow up her care. Patient may require repeat outpatient paracentesis in 1 week with GI. [facility] Further adjustment can be done by hospice. Patient with diabetes mellitus type 2. A1c well controlled. Medications reviewed. Patient previously on metformin. This has been discontinued due to her chronic renal disease stage III. Will continue with diet controlled diabetes. Patient may continue with Glucerna over the counter for supplementation. Recommend to maintain blood sugar less than 140 fasting and less than 200 after meals. If blood sugar remains above 200 consistently then the addition of medication except metformin can be considered. Recommend follow up to establish care with a physician to further monitor. Or hospice may be able to continue to further address. Patient with rheumatoid arthritis/Felty syndrome. Patient has chronic pain. Patient had been on gabapentin 300 mg twice daily. This was decreased due to increased sedation. Patient has done well with gabapentin 100 mg twice daily as needed for pain. At discharge she will continue with gabapentin 100 mg 1 pill twice daily as needed for pain. May need to hold medication if with increase sedation. This can be further addressed by hospice or PCP. Patient with chronic thrombocytopenia and anemia of chronic disease related to cirrhosis. This has remained stable. At discharge she will continue with iron 65 mg 1 pill twice daily. Patient will also continue with folic acid 1 mg daily. This can be further monitored as an outpatient. Recommend recheck CBC in 1-2 weeks to monitor progress. Patient with GERD and gastric varices/portal hypertension. This appears stable. Propanolol has been decreased due to low blood pressure. At discharge she will continue with propanolol 10 mg 1 pill twice daily. Recommend to hold medication if blood pressure systolic less than 100. At discharge she will also continue with Prilosec 20 mg daily. Recommend follow up with GI to further monitor and address. Patient with chronic renal disease stage III. This has remained stable. As mentioned above metformin has been discontinued. Recommend no further use of nonsteroidal anti-inflammatories due to her chronic renal disease and liver disease. Future medications may need to be renally dose. Patient will continue with allopurinol 100 mg 1 pill twice daily. Recommend recheck lab-BMP in 1-2 weeks to monitor her progress. Patient with hypothyroidism. This has remained stable. At discharge she will continue with levothyroxine 100 mcg daily. Patient with urinary incontinence. At discharge she will continue with Ditropan 10 mg 3 times a day. Medication may need to be further adjusted or discontinued this can be further addressed by her PCP or hospice. . Vital Signs/Physical Exam: Temp Pulse Resp BP Pulse Ox 97 F 69 18 108/64 93 08/02/20 08:00 08/02/20 10:09 08/02/20 08:00 08/02/20 10:09 08/02/20 08:00 General: Alert, In no apparent distress, Oriented x3, Cooperative HEENT: Atraumatic Neck: Supple Respiratory: Clear to auscultation bilaterally, Normal air movement Cardiovascular: Normal pulses, Regular rate/rhythm Gastrointestinal: Normal bowel sounds, Ascites (Ascites , improvement noted with recent paracentesis.) Integumentary: No erythema, No warmth, No cyanosis Neurological: Normal speech, Normal strength at 5/5 x4 extr, Normal tone, Normal affect Laboratory Data at Discharge: WBC 2.7 K/uL (4.3-10.9) L D 08/02/20 03:40 Hgb 10.0 g/dL (12.0-15.0) L 08/02/20 03:40 Hct 29.8 % (36.0-45.0) L 08/02/20 03:40 Plt Count 46 K/uL (152-406) L* 08/02/20 03:40 PT 13.5 SECONDS (9.5-12.5) H 08/02/20 03:40 INR 1.15 08/02/20 03:40 APTT 36.9 SECONDS (24.3-36.9) 07/26/20 04:19 Sodium 141 mmol/L (136-145) 08/01/20 05:03 Potassium 3.9 mmol/L (3.5-5.1) 08/01/20 05:03 BUN 19 mg/dL (7-18) H 08/01/20 05:03 Creatinine 1.22 mg/dL (0.55-1.3) 08/01/20 05:03 Glucose 150 mg/dL (74-106) H 08/01/20 05:03 Phosphorus 2.8 mg/dL (2.5-4.9) 07/30/20 05:20 Magnesium 2.5 mg/dL (1.8-2.4) H 08/01/20 05:03 Total Bilirubin 1.0 mg/dL (0.2-1.0) 07/26/20 04:19 AST 19 U/L (15-37) 07/26/20 04:19 ALT 8 U/L (12-78) L 07/26/20 04:19 Alkaline Phosphatase 55 U/L (45-117) 07/26/20 04:19 Triglycerides 113 mg/dL (<150) 07/26/20 04:19 Cholesterol 126 mg/dL (<200) 07/26/20 04:19 HDL Cholesterol 37 mg/dL (40-60) L 07/26/20 04:19 Cholesterol/HDL Ratio 3.41 07/26/20 04:19 Home Medications: Omeprazole [Prilosec] 40 mg PO DAILY 09/20/19 Oxybutynin Chloride [Ditropan*] 5 mg PO TID 09/20/19 Cranberry 1,500 mg PO DAILY 09/21/19 Folic Acid 1 mg PO DAILY 09/21/19 Iron 65 mg PO BID 09/21/19 allopurinoL [Allopurinol] 100 mg PO BID 09/21/19 Levothyroxine Sodium [Synthroid] 100 mcg PO DAILY 11/05/19 Rifaximin [Xifaxan] 550 mg PO BID #60 tablet 11/07/19 Furosemide [Lasix*] 40 mg PO DAILY #30 tab 08/02/20 Gabapentin [Neurontin*] 100 mg PO BID PRN #30 cap 08/02/20 Lactulose [Cephulac*] 30 ml PO Q6HR #1 bottle 08/02/20 Propranolol [Inderal*] 10 mg PO BID #60 tab 08/02/20 Spironolactone [Aldactone] 50 mg PO DAILY #30 08/02/20 New Medications: Spironolactone [Aldactone] 50 mg PO DAILY #30 Lactulose [Cephulac*] 30 ml PO Q6HR #1 bottle Propranolol [Inderal*] 10 mg PO BID #60 tab Furosemide [Lasix*] 40 mg PO DAILY #30 tab Gabapentin [Neurontin*] 100 mg PO BID PRN #30 cap PRN Reason: Pain Scale 2-4 (Mild) Patient Discharge Instructions: 1. Patient will go home with hospice. Recommend to establish care with a PCP to further address her conditions. 2. Patient presented with dyspnea secondary to small left pleural effusion and severe ascites. Patient with advanced alcoholic cirrhosis. Patient was admitted for further evaluation and treatment. Patient required paracentesis on 07/25/2020. 6 L removed at that time. Patient continued on her medication. Patient was also found to have influenza B. She was treated with Tamiflu. She has completed treatment. Her progress was slow. Patient required another paracentesis on 08/02/2020. 3 L removed. Patient remains on diuretic therapy and fluid restriction. Patient also takes lactulose and Xifaxan. Patient is seen by GI as an outpatient. Patient is not a candidate for liver transplant due to her other chronic conditions. This has been addressed in the past. Patient actually had a paracentesis prior to admission. It seems that her liver cirrhosis is getting worse over time. Advanced directives address in detail along with advanced care planning. After further evaluation patient remains full code. But the patient desired hospice at home. Hospice at home has been arranged. Patient will continue with home oxygen to maintain sats above 93%. Patient currently on 2 L. at discharge patient will continue with a 1500 cc per day fluid restriction and low-salt diet. At discharge patient will continue with Lasix 40 mg daily and Aldactone 50 mg daily. The patient will continue with lactulose 20 mg per 30 mL 4 times a day to maintain 3-4 bowel movements per day. The patient will also continue with Xifaxan 550 mg 1 pill twice daily. Recommend follow up with GI in 1-2 weeks to follow up her care. Patient may require repeat outpatient paracentesis in 1 week with GI. This has been [facility]. Further adjustment can be done by hospice. 3. Patient with diabetes mellitus type 2. A1c well controlled. Medications reviewed. Patient previously on metformin. This has been discontinued due to her chronic renal disease stage III. Will continue with diet controlled diabetes. Patient may continue with Glucerna over the counter for supplementation. Recommend to maintain blood sugar less than 140 fasting and less than 200 after meals. If blood sugar remains above 200 consistently then the addition of medication except metformin can be considered. Recommend follow up to establish care with a physician to further monitor. Or hospice may be able to continue to further address. 4. Patient with rheumatoid arthritis/Felty syndrome. Patient has chronic pain. Patient had been on gabapentin 300 mg twice daily. This was decreased due to increased sedation. Patient has done well with gabapentin 100 mg twice daily as needed for pain. At discharge she will continue with gabapentin 100 mg 1 pill twice daily as needed for pain. May need to hold medication if with increase sedation. This can be further addressed by hospice or PCP. 5. Patient with chronic thrombocytopenia and anemia of chronic disease related to cirrhosis. This has remained stable. At discharge she will continue with iron 65 mg 1 pill twice daily. Patient will also continue with folic acid 1 mg daily. This can be further monitored as an outpatient. Recommend recheck CBC in 1-2 weeks to monitor progress. 6. Patient with GERD and gastric varices/portal hypertension. This appears stable. Propanolol has been decreased due to low blood pressure. At discharge she will continue with propanolol 10 mg 1 pill twice daily. Recommend to hold medication if blood pressure systolic less than 100. At discharge she will also continue with Prilosec 20 mg daily. Recommend follow up with GI to further monitor and address. 7. Patient with chronic renal disease stage III. This has remained stable. As mentioned above metformin has been discontinued. Recommend no further use of nonsteroidal anti-inflammatories due to her chronic renal disease and liver disease. Future medications may need to be renally dose. Patient will continue with allopurinol 100 mg 1 pill twice daily. Recommend recheck lab-BMP in 1-2 weeks to monitor her progress. 8. Patient with hypothyroidism. This has remained stable. At discharge she will continue with levothyroxine 100 mcg daily. 9. Patient with urinary incontinence. At discharge she will continue with Ditropan 10 mg 3 times a day. Medication may need to be further adjusted or discontinued this can be further addressed by her PCP or hospice. . Diet: ADA Activity: Fall precautions Time spent managing pt's care (in minutes): 55
[2020-08-02 14:16] VITALS: BP 93/55; TEMP 97.6
== END 2020-08-02 13:49 | disposition hospice, home (50) | DRG 432 ==
LOC: ER 04:00 → ERHOLD 08:33 → 2ND 10:12
PROVIDERS: ADMIT Hospitalist; ATTEND Family Medicine
PROC: 0W9G3ZZ Drainage of Peritoneal Cavity, Percutaneous Approach (ICD-10-PCS; principal; 2020-07-26)
PROC: 30233R1 Transfusion of Nonautologous Platelets into Peripheral Vein, Percutaneous Approach (ICD-10-PCS; 2020-08-02)
DX: K70.31 Alcoholic cirrhosis of liver with ascites (principal); J10.00 Influenza due to other identified influenza virus with unspecified type of pneumonia; K76.6 Portal hypertension; J91.8 Pleural effusion in other conditions classified elsewhere; E03.9 Hypothyroidism, unspecified; M05.00 Felty's syndrome, unspecified site; M06.9 Rheumatoid arthritis, unspecified; R09.02 Hypoxemia; R06.00 Dyspnea, unspecified; Z79.84 Long term (current) use of oral hypoglycemic drugs; Z88.0 Allergy status to penicillin; Z79.899 Other long term (current) drug therapy; Z79.890 Hormone replacement therapy; Z96.651 Presence of right artificial knee joint; Z90.710 Acquired absence of both cervix and uterus; E66.9 Obesity, unspecified; Z68.38 Body mass index [BMI] 38.0-38.9, adult; D69.6 Thrombocytopenia, unspecified; F03.90 Unspecified dementia, unspecified severity, without behavioral disturbance, psychotic disturbance, mood disturbance, and anxiety; K21.9 Gastro-esophageal reflux disease without esophagitis; I12.9 Hypertensive chronic kidney disease with stage 1 through stage 4 chronic kidney disease, or unspecified chronic kidney disease; N18.3 Chronic kidney disease, stage 3 (moderate); E11.22 Type 2 diabetes mellitus with diabetic chronic kidney disease; E11.65 Type 2 diabetes mellitus with hyperglycemia; D63.8 Anemia in other chronic diseases classified elsewhere; I86.4 Gastric varices; R32 Unspecified urinary incontinence; Z20.828 Contact with and (suspected) exposure to other viral communicable diseases
CPT/HCPCS: 36415; 49083; 71045; 71275; 76705; 80048; 80053; 80061; 80076; 81003; 81015; 82140; 82947; 83036; 83735; 83880; 84100; 84132; 84145; 84484; 85025; 85610; 85730; 86850; 86870; 86900; 86901; 87040; 87086; 87088; 87804; 88108; 88305; 93005; 94760; 96365; 97110; 97112; 97161; 97530; 99285; J0456; J0610; J0696; J1650; J1940; J2405; J3480; J7030; J7040; J7050; P9035; P9047; Q9967; U0002; U0003

== ENCOUNTER 2021-01-23 07:52 | Emergency (ER) | payer OTHER ==
--- OUTSIDE RECORDS SUMMARY | 2021-01-23 07:55 | XMS REPORT | Continuity of Care Document ---
:1950 Author Organization [facility] t Address [address] [place] [address] Care Team Providers Name Role Phone Unavailable Unavailable Unavailable Payers Payer Name Policy Type Policy Number Effective Date Expiration Date S ource Problems This patient has no known problems. Allergies, Adverse Reactions, Alerts Allergy Allergy Status Severity Reaction(s) Onset Inactive Treating Comm ents Source Name Type Date Date Clinician Pen[place] DA Active MO 2018-11 [facility] ins 2-16 Clear 00:00: [place] [address] [place] [address] Medications This patient has no known medications. Procedures This patient has no known procedures. Results Test Description Test Time Test Comments Results Result Comments Source GLUCOSE BEDSIDE TESTING 2019-12-17 20:13:00 Test Item Value Reference Range Interpretation Comme nts GLUCOSE BEDSIDE TESTING (test code = GLUBED) 148 mg/dL 70-110 H CBC W/AUTO [id number] 07:35:00 Test Item Value Reference Range Interpretation [...] code = NO DIFF/SCN CRITERIA MDIFF) RBC [id number] 07:35:00 Test Item Value Reference Range Interpretation Comments PLATELET ESTIMATE ADEQUATE THOUSAND ADEQUATE PLT E ST (test code = PLTEST) 40,000- 60,000 PLATELET MORPHOLOGY NORMAL (test code = PLTMORPH) CBC W/AUTO [id number] 07:34:00 Test Item Value Reference Range Interpretation [...] = NO DIFF/SCN CRITERIA MDIFF) CBC W/AUTO [id number] 07:34:00 Test Item Value Reference Range Interpretation [...] = NO DIFF/SCN CRITERIA MDIFF) CBC W/AUTO [id number] 07:29:00 Test Item Value Reference Range Interpretation [...] code = DIFF/SCN CRITERIA MDIFF) CBC W/AUTO [id number] 04:54:00 Test Item Value Reference Range Interpretation [...] code = DIFF/SCN CRITERIA MDIFF) BASIC METABOLIC [id number] 04:41:00 Test Item Value Reference Range Interpretation [...] code = CA) 7.7 MG/DL 8.5-10.1 L [id number] 04:41:00 Test Item Value Reference Range Interpretation Comments MAGNESIUM (test code = MAG) 2.4 MG/DL 1.8-2.4 N HGB [id number] 20:19:00 Test Item Value Reference Range Interpretation Comments HEMOGLOBIN (test code = HGB) 11.2 G/DL 10.4-14.9 N HEMATOCRIT (test code = HCT) 34.8 % 31.5-44.1 N CBC W/AUTO [id number] 15:20:00 Test Item Value Reference Range Interpretation [...] DIFFERENTIAL. Comment: repeat cbc at 6 pm [facility] W/AUTO [id number] 15:20:00 Test Item Value Reference Range Interpretation [...] [facility] [id number] 15:20:00 Test Item Value Reference Range Interpretation Comments PLATELET ESTIMATE DECREASED THOUSAND ADEQUATE PLAT ELET COUNT (test code = REVIEWED AND PLTEST) VERIFIED. PLATELET MORPHOLOGY NORMAL (test code = PLTMORPH) Comment: [facility] [id number] 15:20:00 Test Item Value Reference Range Interpretation [...] DIFFERENTIAL. Comment: repeat cbc at 6 pm [facility] W/AUTO [id number] 15:18:00 Test Item Value Reference Range Interpretation [...] DIFFERENTIAL. Comment: repeat cbc at 6 pm [facility] W/AUTO [id number] 14:15:00 Test Item Value Reference Range Interpretation [...] Comment: repeat cbc at 6 pm todayHGB [id number] 12:24:00 Test Item Value Reference Range Interpretation Comments HEMOGLOBIN (test code = HGB) 11.5 G/DL 10.4-14.9 N HEMATOCRIT (test code = HCT) 35.3 % 31.5-44.1 N CBC W/AUTO [id number] 10:33:00 Test Item Value Reference Range Interpretation [...] MDIFF) CONSISTA NT WITH AUTO DIFFERENTIAL. RBC [id number] 10:33:00 Test Item Value Reference Range Interpretation Comments PLATELET ESTIMATE DECREASED THOUSAND ADEQUATE JERAMY MATED (test code = PLATELET RANGE = PLTEST) 52,000 - 65,000 PLATELET MORPHOLOGY NORMAL (test code = PLTMORPH) CBC W/AUTO [id number] 10:31:00 Test Item Value Reference Range Interpretation [...] CONSISTA NT WITH AUTO DIFFERENTIAL. CBC W/AUTO [id number] 10:31:00 Test Item Value Reference Range Interpretation [...] MDIFF) CONSISTA NT WITH AUTO DIFFERENTIAL. PROTHROMBIN [id number] 08:49:00 Test Item Value Reference Range Interpretation Comments PT PATIENT (test code = PTP) 13.2 SECONDS 9.3-12.9 H INTERNATIONAL NORMAL RATIO 1.16 INR Unit 0.8-1.2 N (test code = INR) CBC W/AUTO [id number] 08:36:00 Test Item Value Reference Range Interpretation [...] code = DIFF/SCN CRITERIA MDIFF) GLUCOSE BEDSIDE [id number] 06:42:00 Test Item Value Reference Range Interpretation Comments GLUCOSE BEDSIDE TESTING (test code 139 mg/dL 70-110 H = GLUBED) [id number] 15:36:00 RUN DATE: 11/14/19 [facility] PAGE 1 RUN TIME: 1536 Specimen Inquiry RUN USER: INTERFACE PATIENT: VASU STONE LOC: [place] U #: [id number] AGE/SX: 68/F ROOM: [facility] RE10/30/19REG DR: Tyler Paz MD : [birth year] BED: 1 DIS: 11/02/19 STATUS: DIS IN TLOC: SPEC #: [id number] RECD: 11/02/19 STATUS: KONG ALLEN #: [id number] PASHA: 11/01/[address]: Tyler Paz MD ENTERED: 11/02/19 SP TYPE: SURG OTHR DR: Self Referred Sony March Jr, MD, Nizam Mohammad MDORDERED: SURG PATH LVL 4 COPIES TO: Self Referred Sony March Jr, MD [address] [facility] [address] [facility] [address] [place] [address] [facility] [address] [place] [address] Nani Pinon MD [address] [place] [address] HISTOLOGY: TISSUE ID BLK PCS CURT LEV PROCEDURE DISPOSITION ____ ___ ___ ___ STOMACH, NOS A 1 2 PROCEDURES: SURG PATH LVL 4 (11/02/19) TISSUES: A. STOMACH, NOS - GASTRIC POLYPS CLINICAL HISTORY BLOOD CLOT SENT BY DR. PINON CPT CODES CPT CODE(S): 63149 , , , , , , CONTINUED ON NEXT PAGE --RUN DATE: 11/14/19 [facility] PAGE 2 RUN TIME: 1536 Specimen Inquiry RUN USER: INTERFACE SPEC #: [facility]:[id number] PATIENT: VASU STONE #[id number] (C ontinued) FINAL DIAGNOSIS Stomach, polypectomy: GASTRIC HYPERPLASTIC POLYPS NO EVIDENCE OF DYSPLASIA OR MALIGNANCY GROSS DESCRIPTION Gastric polyp. Received in formalin are multiple irregular fragments of craft-brown soft tissue admixed with dark brown blood clots, 3.0 x 2.5 x 0.3 cm in aggregate. The entire specimen submitted as A1 - A4. ba/nr Grossing performed at [facility] Pathology, [facility] [facility], [address], [place] [address]. Tower Supervisor: Enrrique Benavides MICROSCOPIC DESCRIPTION Gastric polyp. Large polypoid fragments of gastric mucosa with extensive foveolar hyperplasia and large dilated cystic glands lined by foveolar cells. There is focal surface erosion, vascular congestion, and hemorrhage. Mild chronic inflammation is identified. No evidence of significant atypia or malignancy. /cm Signed SIGNATURE ON FILE DenaphanTy M 11/14/19 1536 END OFREPORT GLUCOSE BEDSIDE [id number] 16:51:00 Test Item Value Reference Range Interpretation Comments GLUCOSE BEDSIDE TESTING (test code 140 mg/dL 70-110 H = GLUBED) GLUCOSE BEDSIDE [id number] 12:31:00 Test Item Value Reference Range Interpretation Comments GLUCOSE BEDSIDE TESTING (test code 105 mg/dL 70-110 N = GLUBED) CBC W/AUTO [id number] 09:29:00 Test Item Value Reference Range Interpretation [...] MDIFF) CONSISTA NT WITH AUTO DIFFERENTIAL. RBC [id number] 09:29:00 Test Item Value Reference Range Interpretation Comments PLATELET ESTIMATE MARKEDLY DECREASED ADEQUATE PLAT ELET COUNT (test code = THOUSAND ESTIMATE= 48,00 0 PLTEST) TO 60,000 PLATELET MORPHOLOGY NORMAL (test code = PLTMORPH) CBC W/AUTO [id number] 09:27:00 Test Item Value Reference Range Interpretation [...] CONSISTA NT WITH AUTO DIFFERENTIAL. CBC W/AUTO [id number] 09:27:00 Test Item Value Reference Range Interpretation [...] CONSISTA NT WITH AUTO DIFFERENTIAL. GLUCOSE BEDSIDE [id number] 08:43:00 Test Item Value Reference Range Interpretation Comments GLUCOSE BEDSIDE TESTING (test code = 92 mg/dL 70-110 N GLUBED) COMPREHENSIVE METABOLIC [id number] 08:12:00 Test Item Value Reference Range Interpretation [...] 90 Unit/L 45-117 N code = ALKP) [id number] 08:12:00 Test Item Value Reference Range Interpretation Comments MAGNESIUM (test code = MAG) 2.2 MG/DL 1.8-2.4 N CBC W/AUTO [id number] 08:03:00 Test Item Value Reference Range Interpretation [...] code = DIFF/SCN CRITERIA MDIFF) GLUCOSE BEDSIDE [id number] 20:32:00 Test Item Value Reference Range Interpretation Comments GLUCOSE BEDSIDE TESTING (test code 104 mg/dL 70-110 N = GLUBED) HGB [id number] 17:25:00 Test Item Value Reference Range Interpretation Comments HEMOGLOBIN (test code = HGB) 12.2 G/DL 10.4-14.9 N HEMATOCRIT (test code = HCT) 38.3 % 31.5-44.1 N GLUCOSE BEDSIDE [id number] 16:58:00 Test Item Value Reference Range Interpretation Comments GLUCOSE BEDSIDE TESTING (test code 112 mg/dL 70-110 H = GLUBED) GLUCOSE BEDSIDE [id number] 12:16:00 Test Item Value Reference Range Interpretation Comments GLUCOSE BEDSIDE TESTING (test code 126 mg/dL 70-110 H = GLUBED) GLUCOSE BEDSIDE [id number] 08:20:00 Test Item Value Reference Range Interpretation Comments GLUCOSE BEDSIDE TESTING (test code 117 mg/dL 70-110 H = GLUBED) HGB [id number] 04:55:00 Test Item Value Reference Range Interpretation Comments HEMOGLOBIN (test code = HGB) 12.0 G/DL 10.4-14.9 N HEMATOCRIT (test code = HCT) 37.9 % 31.5-44.1 N GLUCOSE BEDSIDE [id number] 22:31:00 Test Item Value Reference Range Interpretation Comments GLUCOSE BEDSIDE TESTING (test code 139 mg/dL 70-110 H = GLUBED) GLUCOSE BEDSIDE [id number] 17:24:00 Test Item Value Reference Range Interpretation Comments GLUCOSE BEDSIDE TESTING (test code 124 mg/dL 70-110 H = GLUBED) HGB [id number] 16:27:00 Test Item Value Reference Range Interpretation Comments HEMOGLOBIN (test code = HGB) 12.4 G/DL 10.4-14.9 N HEMATOCRIT (test code = HCT) 38.9 % 31.5-44.1 N GLUCOSE BEDSIDE [id number] 11:27:00 Test Item Value Reference Range Interpretation Comments GLUCOSE BEDSIDE TESTING (test code 140 mg/dL 70-110 H = GLUBED) GLUCOSE BEDSIDE [id number] 08:50:00 Test Item Value Reference Range Interpretation Comments GLUCOSE BEDSIDE TESTING (test code 111 mg/dL 70-110 H = GLUBED) CBC W/AUTO [id number] 05:05:00 Test Item Value Reference Range Interpretation [...] = MDIFF) REVIEWED AND VERIFIED. COMPREHENSIVE METABOLIC [id number] 04:30:00 Test Item Value Reference Range Interpretation [...] Unit/L 45-117 N code = ALKP) PROTHROMBIN [id number] 04:27:00 Test Item Value Reference Range Interpretation Comments PT PATIENT (test code = PTP) 13.7 SECONDS 9.3-12.9 H INTERNATIONAL NORMAL RATIO 1.21 INR Unit 0.8-1.2 H (test code = INR) CBC W/AUTO [id number] 04:17:00 Test Item Value Reference Range Interpretation [...] = DIFF/SCN CRITERIA MDIFF) - US ABDOMEN [id number] 00:11:00 Name: VASU STONE [facility] : 08/23/1951 Age/S: 68 / F [address] [place] Unit #: [id number] Loc: [place] [address] Phys: Tyler Paz MD Acct: [id number] Dis Date: Status: ADM IN PHONE #: [phone] Exam Date: 10/30/2019 2200 FAX #: Reason: ASCITIS? EXAMS: CPT: [id number] US ABDOMEN COMPLETE [id number] Examination: Abdominal ultrasound Location code: S17 Comparison: [...] Rodolfo Cardenas MD Technologist: Arlyn Diaz RDMS Trnorb Date/Time: 10/31/2019 (0011) [id number] PAGE 1 Signed Report Name: VASU STONE [place] : 08/23/1951 Age/S: 68 / F [address] [place] Unit #: [id number]: Ana [place] [address] Phys: Tyler Paz MD Acct: [id number] Dis Date: Status: ADM IN PHONE #: [phone] Exam Date: 10/30/2019 2200 FAX #: Reason: ASCITIS? EXAMS: CPT: [id number] US ABDOMEN COMPLETE [id number] <Continued> Orig Print D/T: S: 10/31/2019 (0015) Probe: PAGE 2 Signed ReportGLUCOSE BEDSIDE [id number] 22:51:00 Test Item Value Reference Range Interpretation Comments GLUCOSE BEDSIDE TESTING (test code 120 mg/dL 70-110 H = GLUBED) CBC W/AUTO [id number] 17:47:00 Test Item Value Reference Range Interpretation [...] DIFF REQUIRED NO DIFF/SCN CRITERIA SLIDE R EGNE (test code = MDIFF) CONSISTA NT WITH AUTO DIFFERENTIAL. RBC [id number] 17:47:00 Test Item Value Reference Range Interpretation Comments PLATELET ESTIMATE DECREASED THOUSAND ADEQUATE PLAT ELET ESTIMATE (test code = 64,000 TO 80,00 0 PLTEST) PLATELET MORPHOLOGY NORMAL (test code = PLTMORPH) CBC W/AUTO [id number] 17:46:00 Test Item Value Reference Range Interpretation [...] CONSISTA NT WITH AUTO DIFFERENTIAL. CBC W/AUTO [id number] 17:46:00 Test Item Value Reference Range Interpretation [...] CONSISTA NT WITH AUTO DIFFERENTIAL. CBC W/AUTO [id number] 16:20:00 Test Item Value Reference Range Interpretation [...] code = DIFF/SCN CRITERIA MDIFF) BASIC METABOLIC [id number] 16:04:00 Test Item Value Reference Range Interpretation [...]
[2021-01-23 08:44] LABS: Absolute Lymphocytes (CBC) 0.2 K/uL (0.7-4.9)
[2021-01-23 08:49] LABS: Basophils % 0.4 % (0-1.3); Hematocrit 32.6 % (36.0-45.0); Lymphocytes % 7.1 % (15.3-44.8); MPV 8.6 fL (7.6-11.3); RBC Red Blood Cell Count 3.17 M/uL (3.86-4.86)
[2021-01-23 08:54] LABS: Protime INR 1.2
--- NOTE | 2021-01-23 09:47 | RAD REPORT ---
EXAM DESCRIPTION: RAD - Chest Single View - 01/23/2021 9:19 am CLINICAL HISTORY: COUGH, cirrhosis, hypertension COMPARISON: July 17, 2020 TECHNIQUE: AP portable chest image was obtained 01/23/2021 9:19 am . FINDINGS: Lung volumes are low. Diffusely prominent interstitial pattern is present. Lung base atele ctasis is present potentially masking very minimal infiltrates. Heart and vasculature are normal. No large pleural effusions seen there is no pneumothorax. No acute bony abnormality seen. No acute aorti c findings suspected. IMPRESSION: Prominent interstitial pattern not substantially different from comparison. Early edema or infiltrate can be masked in this setting. No measurable pleural effusions.
[2021-01-23] MEDS ORDERED: LACTULOSE 20 GM/30 ML UCUP ONE (10:20)
[2021-01-23 10:34] LABS: ALT/SGPT 19 U/L (12-78); AST/SGOT 35 U/L (15-37); Albumin 3.3 g/dL (3.4-5.0); Alkaline Phosphatase 89 U/L (45-117); BUN Blood Urea Nitrogen 26 mg/dL (7-18); Bicarbonate 31 mmol/L (21-32); Bilirubin Direct 0.7 mg/dL (0-0.2); Glucose Level 144 mg/dL (74-106); Lipase 55 U/L (73-393); Magnesium 2.7 mg/dL (1.8-2.4); NT PRO-BNP 291 pg/mL (<125); Protein, Total 8.7 g/dL (6.4-8.2); Sodium Level 141 mmol/L (136-145); Troponin (Emerg Dept Use Only) < 0.02 ng/mL (0.0-0.045)
[2021-01-23] MEDS ORDERED: ONDANSETRON 4 MG/2 ML VIAL ONE (11:01)
[2021-01-23] MEDS ORDERED: FUROSEMIDE 20 MG/ 2ML VIAL ONE (11:01)
--- NOTE | 2021-01-23 11:05 | EDPHYS ---
Physician Documentation [facility] Name: Sofie Kinney Age: 70 yrs Sex: Female : 1950 Arrival Date: 01/23/2021 Time: 07:53 Bed 7 Private MD: ED Physician Tim Armijo HPI: 01/23 09:46 This 70 yrs old Female presents to ER via EMS with complaints of Shortness Of ayanna Breath. 09:46 The patient has shortness of breath with light activity. Onset: The symptoms/episode ayanna began/occurred 3 day(s) ago. 09:47 Duration: The symptoms are continuous, and are steadily getting worse. The patient's ayanna shortness of breath is aggravated by nothing, is alleviated by nothing. The patient presents with confusion, trouble concentrating. Possible causes: hepatic. Associated signs and symptoms: The patient has no apparent associated signs or symptoms. Severity of symptoms: At their worst the symptoms were mild in the emergency department the symptoms are unchanged. Associated signs and symptoms: The patient has no apparent associated signs or symptoms. Historical: - Allergies: 07:56 PENICILLINS; tw2 - Home Meds: 10:11 furosemide 80 mg Oral tab 1 tab 2 times per day [Active]; spironolactone 50 mg Oral tab aa5 once daily [Active]; oxybutynin chloride 5 mg Oral tab 3 times per day [Active]; Xifaxan 550 mg oral tab 2 times per day [Active]; tramadol 50 mg Oral tab every 6 hrs PRN [Active]; haloperidol 2 mg oral tab 4 times a day PRN [Active]; Generlac 10 gram/15 mL oral soln 30 mL daily [Active]; - PMHx: 07:56 Anemia; Cirrhosis; Diabetes - NIDDM; Hypertension; Thyroid problem; tw2 - Immunization history:: Adult Immunizations. - Social history:: Smoking status: . - Family history:: not pertinent. ROS: 09:47 Constitutional: Negative for fever, chills, and weight loss, Eyes: Negative for injury, ayanna pain, redness, and discharge, ENT: Negative for injury, pain, and discharge, Neck: Negative for injury, pain, and swelling, Cardiovascular: Negative for chest pain, palpitations, and edema, Respiratory: Negative for shortness of breath, cough, wheezing, and pleuritic chest pain, Abdomen/GI: Negative for abdominal pain, nausea, vomiting, diarrhea, and constipation, Back: Negative for injury and pain, : Negative for injury, bleeding, discharge, and swelling, MS/Extremity: Negative for injury and deformity, Skin: Negative for injury, rash, and discoloration, Psych: Negative for depression, anxiety, suicide ideation, homicidal ideation, and hallucinations, Allergy/Immunology: Negative for hives, rash, and allergies, Endocrine: Negative for neck swelling, polydipsia, polyuria, polyphagia, and marked weight changes. 09:47 Neuro: Positive for altered mental status, weakness. Exam: 09:47 Constitutional: This is a well developed, well nourished patient who is awake, alert, ayanna and in no acute distress. Head/Face: Normocephalic, atraumatic. Eyes: Pupils equal round and reactive to light, extra-ocular motions intact. Lids and lashes normal. Conjunctiva and sclera are non-icteric and not injected. Cornea within normal limits. Periorbital areas with no swelling, redness, or edema. ENT: Nares patent. No nasal discharge, no septal abnormalities noted. Tympanic membranes are normal and external auditory canals are clear. Oropharynx with no redness, swelling, or masses, exudates, or evidence of obstruction, uvula midline. Mucous membranes moist. Neck: Trachea midline, no thyromegaly or masses palpated, and no cervical lymphadenopathy. Supple, full range of motion without nuchal rigidity, or vertebral point tenderness. No Meningismus. Chest/axilla: Normal chest wall appearance and motion. Nontender with no deformity. No lesions are appreciated. Cardiovascular: Regular rate and rhythm with a normal S1 and S2. No gallops, murmurs, or rubs. Normal PMI, no JVD. No pulse deficits. Respiratory: Lungs have equal breath sounds bilaterally, clear to auscultation and percussion. No rales, rhonchi or wheezes noted. No increased work of breathing, no retractions or nasal flaring. Abdomen/GI: Soft, non-tender, with normal bowel sounds. No distension or tympany. No guarding or rebound. No evidence of tenderness throughout. Back: No spinal tenderness. No costovertebral tenderness. Full range of motion. Female : Normal external genitalia. Skin: Warm, dry with normal turgor. Normal color with no rashes, no lesions, and no evidence of cellulitis. MS/ Extremity: Pulses equal, no cyanosis. Neurovascular intact. Full, normal range of motion. Neuro: Awake and alert, GCS 15, oriented to person, place, time, and situation. Cranial nerves II-XII grossly intact. Motor strength 5/5 in all extremities. Sensory grossly intact. Cerebellar exam normal. Normal gait. Psych: Awake, alert, with orientation to person, place and time. Behavior, mood, and affect are within normal limits. 09:59 ECG was reviewed by the Attending Physician. [facility] Vital Signs: 07:53 Pulse Ox 92% on R/A; tw2 07:53 BP 112 / 51; Pulse 59; Resp 19; Temp 98.9(O); Weight 90.72 kg (R); tw2 10:10 BP 104 / 48; Pulse 64; Resp 17; Pulse Ox 99% on 2 lpm NC; tw2 11:10 BP 116 / 67; Pulse 92; Resp 17; Pulse Ox 99% on 2 lpm NC; tw2 11:59 BP 107 / 50; Pulse 68; Resp 18; Pulse Ox 99% on 2 lpm NC; tw2 13:19 BP 112 / 63; Pulse 63; Resp 16 S; Pulse Ox 98% on R/A; jd3 14:15 BP 106 / 49; Pulse 67; Resp 17; Pulse Ox 99% on 2 lpm NC; tw2 07:53 pt placed on NC at 2L, will continue to monitor tw2 MDM: 07:57 Patient medically screened. [facility] 09:49 Differential diagnosis: Anxiety Reaction asthma, CHF exacerbation, Chronic Obstructive ayanna Pulmonary Disease pneumonia, pulmonary edema, reactive airway disease, Unstable Angina. Antibiotic administration: Not indicated. Differential Diagnosis: CVA, electrolyte abnormality, hypoglycemia, pneumonia, sepsis, UTI, volume depletion. The patient's Wells Deep Vein Thrombosis Score was calculated as follows: Total Score: 0-2 Pts- Low Risk. The patient's pulmonary embolism risk score was calculated as follows: Total Score: 0-2 points. This patient was found to be at low risk for a pulmonary embolism by using the Well's assessment criteria. Immunization status: Pneumococcal vaccine: Influenza vaccine: Data reviewed: vital signs, nurses notes, lab test result(s), EKG, radiologic studies, plain films. Data interpreted: quality assurance monitor final: rate is 59 beats/min, rhythm is regular. Test interpretation: by ED physician or midlevel provider: ECG, plain radiologic studies. Counseling: I had a detailed discussion with the patient and/or guardian regarding: the historical points, exam findings, and any diagnostic results supporting the discharge/admit diagnosis, the presence of at least one elevated blood pressure reading (>120/80) during this emergency department visit, lab results, radiology results, the need for outpatient follow up, for definitive care, a family practitioner, a account technician. 01/23 08:19 Order name: Basic Metabolic Panel [facility] 01/23 08:19 Order name: CBC with Diff [facility] 01/23 08:19 Order name: LFT's [facility] 01/23 08:19 Order name: Magnesium [facility] 01/23 08:19 Order name: NT PRO-BNP [facility] 01/23 08:19 Order name: PT-INR [facility] 01/23 08:19 Order name: Troponin (emerg Dept Use Only) [facility] 01/23 08:19 Order name: Lipase [facility] 01/23 08:19 Order name: AMMONIA [facility] 01/23 08:19 Order name: Urine Culture [facility] 01/23 08:19 Order name: COVID-19 : Document "Date of Symptom Onset" if Symptomatic. [facility] 01/23 08:46 Order name: [facility] 01/23 08:51 Order name: CBC with Automated Diff; Complete Time: 09:42 EDVT 01/23 08:55 Order name: Protime (+INR); Complete Time: 09:42 EDVT 01/23 08:19 Order name: XRAY Chest (1 view) [facility] 01/23 09:28 Order name: Ammonia; Complete Time: 09:42 EDVT 01/23 09:29 Order name: SARS-COV-2 RT PCR; Complete Time: 09:42 EDVT 01/23 09:47 Order name: RAD; Complete Time: 09:52 EDVT 01/23 10:35 Order name: Basic Metabolic Panel; Complete Time: 10:43 EDVT 01/23 10:35 Order name: Liver (Hepatic) Function; Complete Time: 10:43 EDVT 01/23 10:35 Order name: Troponin (Emerg Dept Use Only); Complete Time: 10:43 EDVT 01/23 10:35 Order name: NT PRO-BNP; Complete Time: 10:43 EDVT 01/23 10:35 Order name: Magnesium; Complete Time: 10:43 [facility] 01/23 10:35 Order name: Lipase; Complete Time: 10:43 [facility] 01/23 11:09 Order name: Urine Dipstick--Ancillary (enter results) 01/23 11:21 Order name: Urine Dipstick-Ancillary [facility] 01/23 08:19 Order name: EKG; Complete Time: 08:20 [facility] 01/23 08:19 Order name: Cardiac monitoring; Complete Time: 08:37 [facility] 01/23 08:19 Order name: EKG - Nurse/Tech; Complete Time: 08:37 [facility] 01/23 08:19 Order name: IV Saline Lock; Complete Time: 08:37 [facility] 01/23 08:19 Order name: Labs collected and sent; Complete Time: 08:37 [facility] 01/23 08:19 Order name: O2 Per Protocol; Complete Time: 08:37 [facility] 01/23 08:19 Order name: O2 Sat Monitoring; Complete Time: 08:37 [facility] 01/23 08:19 Order name: Urine Dipstick-Ancillary (obtain specimen); Complete Time: 13:06 [facility] EC:59 Rate is 56 beats/min. Rhythm is regular. QRS [place] is Normal. [place] interval is normal. QRS ayanna interval is normal. QT interval is normal. No Q waves. T waves are Normal. No ST changes noted. Clinical impression: NSR w/ Non-specific ST/T Changes and No evidence of ischemia. Interpreted by me. Reviewed by me. Administered Medications: 10:10 Drug: Lactulose 60 grams Volume: 45 ml; Route: PO; tw2 14:34 Follow up: Response: No adverse reaction tw2 10:50 Drug: Zofran (Ondansetron) 4 mg Route: IVP; Site: right forearm; tw2 14:34 Follow up: Response: No adverse reaction; Nausea is decreased tw2 10:51 Drug: Lasix 20 mg Route: IVP; Site: right forearm; tw2 11:00 Follow up: Response: No adverse reaction tw2 13:00 Drug: Rocephin 1 grams Route: IV; Rate: per protocol; Site: right forearm; sg 13:10 Follow up: Response: No adverse reaction; IV Status: Completed infusion; IV Intake: [id number] Disposition: 01/23/21 11:04 Discharged to Home. Impression: Encephalopathy, unspecified, Obesity, unspecified, Type 2 diabetes mellitus, Unspecified cirrhosis of liver, Urinary tract infection, site not specified, Unspecified combined systolic (congestive) and diastolic (congestive) heart failure. - Condition is Stable. - Discharge Instructions: Heart Failure, Obesity, Adult, Urinary Tract Infection, Adult, Hepatic Encephalopathy, Urinary Tract Infection, Adult, [id number], Obesity, Adult, [id number], Liver Failure. - Prescriptions for Lactulose 10 gram/15 mL Oral Solution - take 30 milliliters by ORAL route every 12 hours; 300 milliliter. Cipro 250 mg Oral Tablet - take 1 tablet by ORAL route every 12 hours; 14 tablet. - Medication Reconciliation Form, Thank You Letter, Antibiotic Education, Prescription Opioid Use form. - Follow up: Private Physician; When: 2 - 3 days; Reason: Recheck today's complaints, Continuance of care, Re-evaluation by your physician. Follow up: Nani Hess; When: 2 - 3 days; Reason: Recheck today's complaints, Re-evaluation by your physician. - Problem is new. - Symptoms have improved. Signatures: Dispatcher [employer] EDMS Ervin Campa RN RN Tim Haynes MD MD cha Calderon, Audri, RN RN aa5 Kareen Buchanan RN RN tw2 Akash Medina RN RN jd3 Corrections: (The following items were deleted from the chart) 14:46 11:04 01/23/2021 11:04 Discharged to Home. Impression: Encephalopathy, unspecified; jd3 Obesity, unspecified; Type 2 diabetes mellitus; Unspecified cirrhosis of liver; Urinary tract infection, site not specified; Unspecified combined systolic (congestive) and diastolic (congestive) heart failure. Condition is Stable. Discharge Instructions: Obesity, Adult, Hepatic Encephalopathy, Obesity, Adult, [id number], Liver Failure. Prescriptions for Lactulose 10 gram/15 mL Oral Solution - take 30 milliliters by ORAL route every 12 hours; 300 milliliter. and Forms are Medication Reconciliation Form, Thank You Letter, Antibiotic Education, Prescription Opioid Use. Follow up: Private Physician; When: 2 - 3 days; Reason: Recheck today's complaints, Continuance of care, Re-evaluation by your physician. Follow up: Nani Hess; When: 2 - 3 days; Reason: Recheck today's complaints, Re-evaluation by your physician. Problem is new. Symptoms have improved. ayanna
--- NOTE | 2021-01-23 11:05 | ER ---
Nurse's Notes [facility] Name: Sofie Kinney Age: 70 yrs Sex: Female : 1950 Arrival Date: 01/23/2021 Time: 07:53 Bed 7 Private MD: Diagnosis: Encephalopathy, unspecified;Obesity, unspecified;Type 2 diabetes mellitus;Unspecified cirrhosis of liver;Urinary tract infection, site not specified;Unspecified combined systolic (congestive) and diastolic (congestive) heart failure Presentation: 01/23 07:53 Chief complaint: EMS states: pt from home, is on Hospice for cirrhosis, uses o2 at tw2 home, not sure how many we had her on 2L nc, she was 94RA, vs stable, allergy to PCN, hx: DM. Coronavirus screen: difficulty breathing, Client presents with at least one sign or symptom that may indicate coronavirus-19. Standard/surgical mask placed on the client. Provider contacted for isolation considerations. Ebola Screen: Patient denies travel to an Ebola-affected area in the 21 days before illness onset. Initial Sepsis Screen: Does the patient meet any 2 criteria? No. Patient's initial sepsis screen is negative. Does the patient have a suspected source of infection? No. Patient's initial sepsis screen is negative. Risk Assessment: Do you want to hurt yourself or someone else? Patient reports no desire to harm self or others. Onset of symptoms was January 23, 2021. 07:53 Method Of Arrival: EMS: [facility] tw2 07:53 Acuity: ROBERT 3 tw2 Triage Assessment: 07:56 General: Appears in no apparent distress. obese, unkempt, Behavior is calm, tw2 cooperative, appropriate for age. Pain: Denies pain. EENT: No signs and/or symptoms were reported regarding the EENT system. Neuro: Level of Consciousness is awake, alert, obeys commands. Respiratory: Reports shortness of breath at rest on exertion Onset: The symptoms/episode began/occurred "i dont know, you will have to call Jaylyn", the patient has moderate shortness of breath. Historical: - Allergies: 07:56 PENICILLINS; tw2 - Home Meds: 10:11 furosemide 80 mg Oral tab 1 tab 2 times per day [Active]; spironolactone 50 mg Oral tab aa5 once daily [Active]; oxybutynin chloride 5 mg Oral tab 3 times per day [Active]; Xifaxan 550 mg oral tab 2 times per day [Active]; tramadol 50 mg Oral tab every 6 hrs PRN [Active]; haloperidol 2 mg oral tab 4 times a day PRN [Active]; Generlac 10 gram/15 mL oral soln 30 mL daily [Active]; - PMHx: 07:56 Anemia; Cirrhosis; Diabetes - NIDDM; Hypertension; Thyroid problem; tw2 - Immunization history:: Adult Immunizations. - Social history:: Smoking status: . - Family history:: not pertinent. Screenin:40 Abuse screen: Denies threats or abuse. Nutritional screening: No deficits noted. tw2 Tuberculosis screening: No symptoms or risk factors identified. Fall Risk None identified. Assessment: 07:53 General: Appears in no apparent distress. obese, well groomed, Behavior is calm, tw2 cooperative, appropriate for age. Neuro: Level of Consciousness is awake, alert, obeys commands, Oriented to person, place, situation. Cardiovascular: Rhythm is regular. Cardiovascular: Edema is 2+ to left midcalf, left ankle, right midcalf and right ankle. Respiratory: Airway is patent Respiratory effort is Respiratory pattern is regular, symmetrical, Breath sounds are diminished bilaterally. GI: No signs and/or symptoms were reported involving the gastrointestinal system. Abdomen is round distended. GI: Bowel sounds present X 4 quads. : No signs and/or symptoms were reported regarding the genitourinary system. EENT: No signs and/or symptoms were reported regarding the EENT system. Derm: Skin is jaundiced. Musculoskeletal: Range of motion: intact in all extremities. 10:10 Reassessment: Patient appears in no apparent distress at this time. No changes from tw2 previously documented assessment. Patient and/or family updated on plan of care and expected duration. Pain level reassessed. 10:50 Reassessment: pt c/o nauseousness, provider notified, medicated as ordered. tw2 12:00 Reassessment: Patient appears in no apparent distress at this time. No changes from tw2 previously documented assessment. Patient and/or family updated on plan of care and expected duration. Pain level reassessed. 13:16 Reassessment: Jaylyn contacted at [phone] for pt transport to home. sg 13:18 Reassessment: awaiting patient transport to home. sg 14:30 Reassessment: Patient appears in no apparent distress at this time. No changes from tw2 previously documented assessment. Patient and/or family updated on plan of care and expected duration. Pain level reassessed. 14:46 Reassessment: Patient appears in no apparent distress at this time. No changes from tw2 previously documented assessment. Patient and/or family updated on plan of care and expected duration. Pain level reassessed. Vital Signs: 07:53 Pulse Ox 92% on R/A; tw2 07:53 BP 112 / 51; Pulse 59; Resp 19; Temp 98.9(O); Weight 90.72 kg (R); tw2 10:10 BP 104 / 48; Pulse 64; Resp 17; Pulse Ox 99% on 2 lpm NC; tw2 11:10 BP 116 / 67; Pulse 92; Resp 17; Pulse Ox 99% on 2 lpm NC; tw2 11:59 BP 107 / 50; Pulse 68; Resp 18; Pulse Ox 99% on 2 lpm NC; tw2 13:19 BP 112 / 63; Pulse 63; Resp 16 S; Pulse Ox 98% on R/A; jd3 14:15 BP 106 / 49; Pulse 67; Resp 17; Pulse Ox 99% on 2 lpm NC; tw2 07:53 pt placed on NC at 2L, will continue to monitor tw2 ED Course: 07:53 Patient arrived in ED. tw2 07:53 Bed in low position. Call light in reach. Side rails up X2. library monitor on. Pulse tw2 ox on. NIBP on. Warm blanket given. 07:56 Triage completed. tw2 07:57 Tim Armijo MD is Attending Physician. ayanna 07:57 Kareen Buchanan, RN is Primary Nurse. tw2 07:57 Arm band placed on. tw2 08:30 Inserted saline lock: 20 gauge in right forearm, using aseptic technique. Blood tw2 collected. 08:39 COVID-19 : Document "Date of Symptom Onset" if Symptomatic. Sent. tw2 11:03 Nani Hess MD is Referral Physician. ayanna 14:30 Awaiting transportation. tw2 14:46 No provider procedures requiring assistance completed. IV discontinued, intact, tw2 bleeding controlled, No redness/swelling at site. Pressure dressing applied. Administered Medications: 10:10 Drug: Lactulose 60 grams Volume: 45 ml; Route: PO; tw2 14:34 Follow up: Response: No adverse reaction tw2 10:50 Drug: Zofran (Ondansetron) 4 mg Route: IVP; Site: right forearm; tw2 14:34 Follow up: Response: No adverse reaction; Nausea is decreased tw2 10:51 Drug: Lasix 20 mg Route: IVP; Site: right forearm; tw2 11:00 Follow up: Response: No adverse reaction tw2 13:00 Drug: Rocephin 1 grams Route: IV; Rate: per protocol; Site: right forearm; sg 13:10 Follow up: Response: No adverse reaction; IV Status: Completed infusion; IV Intake: [id number] Intake: 13:10 IV: 10ml; Total: 10ml. tw2 Outcome: 11:04 Discharge ordered by . ayanna 14:46 Patient left the ED. jdick 14:46 Discharged to home via wheelchair, with family. tw2 14:46 Condition: stable 14:46 Discharge instructions given to patient, family, Instructed on discharge instructions, follow up and referral plans. medication usage, Demonstrated understanding of instructions, follow-up care, medications, Prescriptions given X 1. Signatures: Ervin Campa RN Tim Sal MD MD cha Calderon, Audri, RN RN aa5 Kareen Buchanan RN RN tw2 Akash Medina RN RN jd3
[2021-01-23 11:20] LABS: Urine Blood NEGATIVE (NEG); Urine Glucose NEGATIVE (NEG); Urine Protein NEGATIVE (NEG); Urine pH 7.5 (5.0-7.0)
[2021-01-23] MEDS ORDERED: CEFTRIAXONE/SWI 1gm 1 GM/10 ML SYR ONE (11:25)
[2021-01-23 14:54] VITALS: O2SAT 99
[2021-01-23 15:06] VITALS: BP 106/49; TEMP 97.6
--- NOTE | 2021-01-24 06:52 | EKG ---
Test Date: 2021-01-23 Test Time: 08:29:17 Varnish Finisher: ALYSSA MEASUREMENT RESULTS: Intervals: Rate: 56 MN: QRSD: 82 QT: 428 QTc: 413 [place]: P: MN: QRS: -5 T: 200 INTERPRETIVE STATEMENTS: Junctional rhythm Anterior infarct, age undetermined Abnormal ECG Compared to ECG 07/25/2020 04:08:54 Junctional rhythm now present Sinus bradycardia no longer present Myocardial infarct finding still present Electronically Signed On 01-24-21 06:49:20 CONFERENCE MANAGER by Jacob Duke
== END 2021-01-23 14:46 | disposition home or self-care (01) ==
LOC: ER 07:52
DX: G93.40 Encephalopathy, unspecified (principal); N39.0 Urinary tract infection, site not specified; K74.60 Unspecified cirrhosis of liver; I50.9 Heart failure, unspecified; E11.9 Type 2 diabetes mellitus without complications; E66.9 Obesity, unspecified; I10 Essential (primary) hypertension; E07.9 Disorder of thyroid, unspecified; Z20.822 Contact with and (suspected) exposure to COVID-19; Z88.0 Allergy status to penicillin
CPT/HCPCS: 93005; 87088; 85025; 87086; 80048; 36415; 82140; 83735; 85610; 80076; 81003; 84484; 83690; 83880; 71045; U0003; J1940; J0696; J2405; 96374; 96375; 99284

== ENCOUNTER 2021-02-18 03:37 | Emergency (ER) | payer OTHER ==
--- OUTSIDE RECORDS SUMMARY | 2021-02-18 03:41 | XMS REPORT | Continuity of Care Document ---
:1950 Author Organization [facility] t Address [address] [place] [address] Care Team Providers Name Role Phone Unavailable Unavailable Unavailable Payers Payer Name Policy Type Policy Number Effective Date Expiration Date S ource Problems This patient has no known problems. Allergies, Adverse Reactions, Alerts Allergy Allergy Status Severity Reaction(s) Onset Inactive Treating Comm ents Source Name Type Date Date Clinician Penic[place] DA Active MO 2018-11 [facility] ins 2-16 Clear 00:00: [place] [address] [place] [address] Medications This patient has no known medications. Procedures This patient has no known procedures. Results Test Description Test Time Test Comments Results Result Comments Source GLUCOSE BEDSIDE TESTING 2019-12-17 20:13:00 Test Item Value Reference Range Interpretation Comme nts GLUCOSE BEDSIDE TESTING (test code = GLUBED) 148 mg/dL 70-110 H CBC W/AUTO [id number] 07:35:00 Test Item Value Reference Range Interpretation [...] code = NO DIFF/SCN CRITERIA MDIFF) RBC [id number] 07:35:00 Test Item Value Reference Range Interpretation Comments PLATELET ESTIMATE ADEQUATE THOUSAND ADEQUATE PLT E ST (test code = PLTEST) 40,000- 60,000 PLATELET MORPHOLOGY NORMAL (test code = PLTMORPH) CBC W/AUTO [id number] 07:34:00 Test Item Value Reference Range Interpretation [...] = NO DIFF/SCN CRITERIA MDIFF) CBC W/AUTO [id number] 07:34:00 Test Item Value Reference Range Interpretation [...] = NO DIFF/SCN CRITERIA MDIFF) CBC W/AUTO [id number] 07:29:00 Test Item Value Reference Range Interpretation [...] code = DIFF/SCN CRITERIA MDIFF) CBC W/AUTO [id number] 04:54:00 Test Item Value Reference Range Interpretation [...] code = DIFF/SCN CRITERIA MDIFF) BASIC METABOLIC [id number] 04:41:00 Test Item Value Reference Range Interpretation [...] code = CA) 7.7 MG/DL 8.5-10.1 L [id number] 04:41:00 Test Item Value Reference Range Interpretation Comments MAGNESIUM (test code = MAG) 2.4 MG/DL 1.8-2.4 N HGB [id number] 20:19:00 Test Item Value Reference Range Interpretation Comments HEMOGLOBIN (test code = HGB) 11.2 G/DL 10.4-14.9 N HEMATOCRIT (test code = HCT) 34.8 % 31.5-44.1 N CBC W/AUTO [id number] 15:20:00 Test Item Value Reference Range Interpretation [...] DIFFERENTIAL. Comment: repeat cbc at 6 pm [facility] W/AUTO [id number] 15:20:00 Test Item Value Reference Range Interpretation [...] DIFFERENTIAL. Comment: repeat cbc at 6 pm todayRB [id number] 15:20:00 Test Item Value Reference Range Interpretation Comments PLATELET ESTIMATE DECREASED THOUSAND ADEQUATE PLAT ELET COUNT (test code = REVIEWED AND PLTEST) VERIFIED. PLATELET MORPHOLOGY NORMAL (test code = PLTMORPH) Comment: [facility] [id number] 15:20:00 Test Item Value Reference Range Interpretation [...] DIFFERENTIAL. Comment: repeat cbc at 6 pm [facility] W/AUTO [id number] 15:18:00 Test Item Value Reference Range Interpretation [...] DIFFERENTIAL. Comment: repeat cbc at 6 pm [facility] W/AUTO [id number] 14:15:00 Test Item Value Reference Range Interpretation [...] Comment: repeat cbc at 6 pm todayHGB [id number] 12:24:00 Test Item Value Reference Range Interpretation Comments HEMOGLOBIN (test code = HGB) 11.5 G/DL 10.4-14.9 N HEMATOCRIT (test code = HCT) 35.3 % 31.5-44.1 N CBC W/AUTO [id number] 10:33:00 Test Item Value Reference Range Interpretation [...] MDIFF) CONSISTA NT WITH AUTO DIFFERENTIAL. RBC [id number] 10:33:00 Test Item Value Reference Range Interpretation Comments PLATELET ESTIMATE DECREASED THOUSAND ADEQUATE JERAMY MATED (test code = PLATELET RANGE = PLTEST) 52,000 - 65,000 PLATELET MORPHOLOGY NORMAL (test code = PLTMORPH) CBC W/AUTO [id number] 10:31:00 Test Item Value Reference Range Interpretation [...] CONSISTA NT WITH AUTO DIFFERENTIAL. CBC W/AUTO [id number] 10:31:00 Test Item Value Reference Range Interpretation [...] MDIFF) CONSISTA NT WITH AUTO DIFFERENTIAL. PROTHROMBIN [id number] 08:49:00 Test Item Value Reference Range Interpretation Comments PT PATIENT (test code = PTP) 13.2 SECONDS 9.3-12.9 H INTERNATIONAL NORMAL RATIO 1.16 INR Unit 0.8-1.2 N (test code = INR) CBC W/AUTO [id number] 08:36:00 Test Item Value Reference Range Interpretation [...] code = DIFF/SCN CRITERIA MDIFF) GLUCOSE BEDSIDE [id number] 06:42:00 Test Item Value Reference Range Interpretation Comments GLUCOSE BEDSIDE TESTING (test code 139 mg/dL 70-110 H = GLUBED) [id number] 15:36:00 RUN DATE: 11/14/19 [facility] PAGE 1 RUN TIME: 1536 Specimen Inquiry RUN USER: INTERFACE PATIENT: VASU STONE LOC: [place] U #: [id number] AGE/SX: 68/F ROOM: [facility] RE10/30/19REG DR: Tyler Paz MD : [birth year] BED: 1 DIS: 11/02/19 STATUS: DIS IN TLOC: SPEC #: [id number] RECD: 11/02/19 STATUS: KONG ALLEN #: [id number] PASHA: 11/01/[address]: Tyler Paz MD ENTERED: 11/02/19 SP TYPE: SURG OTHR DR: Self Referred Sony March Jr, MD, Nizam Mohammad MDORDERED: SURG PATH LVL 4 COPIES TO: Self Referred Sony March Jr, MD [address] [facility] [address] [facility] [address] [place] [address] [facility] [address] [place] [address] Nani Pinon MD [address] [place] [address] HISTOLOGY: TISSUE ID BLK PCS CURT LEV PROCEDURE DISPOSITION ____ ___ ___ ___ STOMACH, NOS A 1 2 PROCEDURES: SURG PATH LVL 4 (11/02/19) TISSUES: A. STOMACH, NOS - GASTRIC POLYPS CLINICAL HISTORY BLOOD CLOT SENT BY DR. PINON CPT CODES CPT CODE(S): 99626 , , , , , , CONTINUED ON NEXT PAGE --RUN DATE: 11/14/19 [facility] PAGE 2 RUN TIME: 1536 Specimen Inquiry RUN USER: INTERFACE SPEC #: [id number] PATIENT: VASU STONE #[id number] (C ontinued) FINAL DIAGNOSIS Stomach, polypectomy: GASTRIC HYPERPLASTIC POLYPS NO EVIDENCE OF DYSPLASIA OR MALIGNANCY GROSS DESCRIPTION Gastric polyp. Received in formalin are multiple irregular fragments of craft-brown soft tissue admixed with dark brown blood clots, 3.0 x 2.5 x 0.3 cm in aggregate. The entire specimen submitted as A1 - A4. ba/nr Grossing performed at [facility] Pathology, [address] [place] [address], [address], [place] [address]. Package Worker: Enrrique Benavides MICROSCOPIC DESCRIPTION Gastric polyp. Large polypoid fragments of gastric mucosa with extensive foveolar hyperplasia and large dilated cystic glands lined by foveolar cells. There is focal surface erosion, vascular congestion, and hemorrhage. Mild chronic inflammation is identified. No evidence of significant atypia or malignancy. /cm Signed SIGNATURE ON FILE RacielTy Vinay 11/14/19 1536 END OFREPORT GLUCOSE BEDSIDE [id number] 16:51:00 Test Item Value Reference Range Interpretation Comments GLUCOSE BEDSIDE TESTING (test code 140 mg/dL 70-110 H = GLUBED) GLUCOSE BEDSIDE [id number] 12:31:00 Test Item Value Reference Range Interpretation Comments GLUCOSE BEDSIDE TESTING (test code 105 mg/dL 70-110 N = GLUBED) CBC W/AUTO [id number] 09:29:00 Test Item Value Reference Range Interpretation [...] MDIFF) CONSISTA NT WITH AUTO DIFFERENTIAL. RBC [id number] 09:29:00 Test Item Value Reference Range Interpretation Comments PLATELET ESTIMATE MARKEDLY DECREASED ADEQUATE PLAT ELET COUNT (test code = THOUSAND ESTIMATE= 48,00 0 PLTEST) TO 60,000 PLATELET MORPHOLOGY NORMAL (test code = PLTMORPH) CBC W/AUTO [id number] 09:27:00 Test Item Value Reference Range Interpretation [...] CONSISTA NT WITH AUTO DIFFERENTIAL. CBC W/AUTO [id number] 09:27:00 Test Item Value Reference Range Interpretation [...] CONSISTA NT WITH AUTO DIFFERENTIAL. GLUCOSE BEDSIDE [id number] 08:43:00 Test Item Value Reference Range Interpretation Comments GLUCOSE BEDSIDE TESTING (test code = 92 mg/dL 70-110 N GLUBED) COMPREHENSIVE METABOLIC [id number] 08:12:00 Test Item Value Reference Range Interpretation [...] 90 Unit/L 45-117 N code = ALKP) [id number] 08:12:00 Test Item Value Reference Range Interpretation Comments MAGNESIUM (test code = MAG) 2.2 MG/DL 1.8-2.4 N CBC W/AUTO [id number] 08:03:00 Test Item Value Reference Range Interpretation [...] code = DIFF/SCN CRITERIA MDIFF) GLUCOSE BEDSIDE [id number] 20:32:00 Test Item Value Reference Range Interpretation Comments GLUCOSE BEDSIDE TESTING (test code 104 mg/dL 70-110 N = GLUBED) HGB [id number] 17:25:00 Test Item Value Reference Range Interpretation Comments HEMOGLOBIN (test code = HGB) 12.2 G/DL 10.4-14.9 N HEMATOCRIT (test code = HCT) 38.3 % 31.5-44.1 N GLUCOSE BEDSIDE [id number] 16:58:00 Test Item Value Reference Range Interpretation Comments GLUCOSE BEDSIDE TESTING (test code 112 mg/dL 70-110 H = GLUBED) GLUCOSE BEDSIDE [id number] 12:16:00 Test Item Value Reference Range Interpretation Comments GLUCOSE BEDSIDE TESTING (test code 126 mg/dL 70-110 H = GLUBED) GLUCOSE BEDSIDE [id number] 08:20:00 Test Item Value Reference Range Interpretation Comments GLUCOSE BEDSIDE TESTING (test code 117 mg/dL 70-110 H = GLUBED) HGB [id number] 04:55:00 Test Item Value Reference Range Interpretation Comments HEMOGLOBIN (test code = HGB) 12.0 G/DL 10.4-14.9 N HEMATOCRIT (test code = HCT) 37.9 % 31.5-44.1 N GLUCOSE BEDSIDE [id number] 22:31:00 Test Item Value Reference Range Interpretation Comments GLUCOSE BEDSIDE TESTING (test code 139 mg/dL 70-110 H = GLUBED) GLUCOSE BEDSIDE [id number] 17:24:00 Test Item Value Reference Range Interpretation Comments GLUCOSE BEDSIDE TESTING (test code 124 mg/dL 70-110 H = GLUBED) HGB [id number] 16:27:00 Test Item Value Reference Range Interpretation Comments HEMOGLOBIN (test code = HGB) 12.4 G/DL 10.4-14.9 N HEMATOCRIT (test code = HCT) 38.9 % 31.5-44.1 N GLUCOSE BEDSIDE [id number] 11:27:00 Test Item Value Reference Range Interpretation Comments GLUCOSE BEDSIDE TESTING (test code 140 mg/dL 70-110 H = GLUBED) GLUCOSE BEDSIDE [id number] 08:50:00 Test Item Value Reference Range Interpretation Comments GLUCOSE BEDSIDE TESTING (test code 111 mg/dL 70-110 H = GLUBED) CBC W/AUTO [id number] 05:05:00 Test Item Value Reference Range Interpretation [...] = MDIFF) REVIEWED AND VERIFIED. COMPREHENSIVE METABOLIC [id number] 04:30:00 Test Item Value Reference Range Interpretation [...] Unit/L 45-117 N code = ALKP) PROTHROMBIN [id number] 04:27:00 Test Item Value Reference Range Interpretation Comments PT PATIENT (test code = PTP) 13.7 SECONDS 9.3-12.9 H INTERNATIONAL NORMAL RATIO 1.21 INR Unit 0.8-1.2 H (test code = INR) CBC W/AUTO [id number] 04:17:00 Test Item Value Reference Range Interpretation [...] = DIFF/SCN CRITERIA MDIFF) - US ABDOMEN [id number] 00:11:00 Name: VASU STONE [facility] : 08/23/1951 Age/S: 68 / F [address] [address] [address] [place] Unit #: [id number] Loc: [place] [address] Phys: Tyler Paz MD Acct: [id number] Dis Date: Status: ADM IN PHONE #: [phone] Exam Date: 10/30/2019 2200 FAX #: Reason: ASCITIS? EXAMS: CPT: [id number] US ABDOMEN COMPLETE [id number] Examination: Abdominal ultrasound Location code: S17 Comparison: [...] Rodolfo Cardenas MD Technologist: Arlyn Diaz RDMS [facility] Date/Time: 10/31/2019 (0011) [id number] PAGE 1 Signed [facility] 08/23/1951 Age/S: 68 / F [address] [address] [place] Unit #: [id number]: [place] [address] Phys: Tyler Paz MD Acct: [id number] Dis Date: Status: ADM IN PHONE #: [phone] Exam Date: 10/30/2019 2200 FAX #: Reason: ASCITIS? EXAMS: CPT: [id number] US ABDOMEN COMPLETE [id number] <Continued> Orig Print D/T: S: 10/31/2019 (0015) Probe: PAGE 2 Signed ReportGLUCOSE BEDSIDE [id number] 22:51:00 Test Item Value Reference Range Interpretation Comments GLUCOSE BEDSIDE TESTING (test code 120 mg/dL 70-110 H = GLUBED) CBC W/AUTO [id number] 17:47:00 Test Item Value Reference Range Interpretation [...] MDIFF) CONSISTA NT WITH AUTO DIFFERENTIAL. RBC [id number] 17:47:00 Test Item Value Reference Range Interpretation Comments PLATELET ESTIMATE DECREASED THOUSAND ADEQUATE PLAT ELET ESTIMATE (test code = 64,000 TO 80,00 0 PLTEST) PLATELET MORPHOLOGY NORMAL (test code = PLTMORPH) CBC W/AUTO [id number] 17:46:00 Test Item Value Reference Range Interpretation [...] CONSISTA NT WITH AUTO DIFFERENTIAL. CBC W/AUTO [id number] 17:46:00 Test Item Value Reference Range Interpretation [...] CONSISTA NT WITH AUTO DIFFERENTIAL. CBC W/AUTO [id number] 16:20:00 Test Item Value Reference Range Interpretation [...] code = DIFF/SCN CRITERIA MDIFF) BASIC METABOLIC [id number] 16:04:00 Test Item Value Reference Range Interpretation [...]
[2021-02-18] MEDS ORDERED: TETANUS & DIPHTHERIA TOX,ADULT 0.5 ML VIAL ONE (07:09)
--- NOTE | 2021-02-18 07:35 | EDPHYS ---
Physician Documentation [facility] Name: Sofie Kinney Age: 70 yrs Sex: Female : 1950 Arrival Date: 02/18/2021 Time: 03:39 Bed 7 Private MD: ED Physician Alphonso Andersen HPI: 02/18 07:24 This 70 yrs old Female presents to ER via EMS with unknown complaint. pkl 07:24 Details of fall: The patient fell from an upright position. Onset: The symptoms/episode pkl began/occurred just prior to arrival. Associated injuries: The patient sustained injury to the head, contusion, hematoma, Skin tears both upper extremities. Historical: - Allergies: 07:40 PENICILLINS; ld1 - PMHx: 03:53 Anemia; Cirrhosis; Diabetes - NIDDM; Hypertension; Thyroid problem; mg2 - Immunization history: Last tetanus immunization: unknown. - Social history:: Smoking status: unknown Smoking status: Patient denies any tobacco usage or history of. ROS: 07:24 Eyes: Negative for injury, pain, redness, and discharge, ENT: Negative for injury, pkl pain, and discharge, Neck: Negative for injury, pain, and swelling, Cardiovascular: Negative for chest pain, palpitations, and edema, Respiratory: Negative for shortness of breath, cough, wheezing, and pleuritic chest pain, Abdomen/GI: Negative for abdominal pain, nausea, vomiting, diarrhea, and constipation, Back: Negative for injury and pain, : Negative for injury, bleeding, discharge, and swelling. 07:24 MS/extremity: Positive for Skin tears both upper extremities. 07:24 Neuro: Negative for altered mental status, loss of consciousness. Exam: 07:24 Eyes: Pupils equal round and reactive to light, extra-ocular motions intact. Lids and pkl lashes normal. Conjunctiva and sclera are non-icteric and not injected. Cornea within normal limits. Periorbital areas with no swelling, redness, or edema. 07:24 Head/face: Noted is contusion, of the forehead, hematoma. 07:24 ENT: Exam is negative for acute changes. 07:24 Neck: Exam negative for pain w/ palpation. 07:24 Chest/axilla: Exam negative for acute changes. 07:24 Cardiovascular: Rate: normal, Rhythm: regular. 07:24 Respiratory: the patient does not display signs of respiratory distress, Respirations: normal, Breath sounds: are clear throughout. 07:24 Abdomen/GI: Bowel sounds: normal, Palpation: abdomen is soft and non-tender, in all quadrants. 07:24 Back: Exam negative for acute changes. 07:24 : Exam negative for acute changes. 07:24 Musculoskeletal/extremity: Extremities: grossly normal except: noted in the : 07:24 Neuro: Orientation: is normal, Mentation: is normal, Cranial nerves: grossly normal, Motor: is normal. Vital Signs: 03:51 BP 105 / 40; Pulse 61; Resp 18; Temp 98; Pulse Ox 99% on R/A; Weight 133.81 kg; Height mg2 5 ft. 3 in. (160.02 cm); 03:51 Body Mass Index 52.26 (133.81 kg, 160.02 cm) mg2 [place] Coma Score: 03:51 Eye Response: spontaneous(4). Verbal Response: oriented(5). Motor Response: obeys mg2 commands(6). Total: 15. Trauma Score (Adult): 03:51 Eye Response: spontaneous(1); Verbal Response: oriented(1); Motor Response: obeys mg2 commands(2); Systolic BP: > 89 mm Hg(4); Respiratory Rate: 10 to 29 per min(4); Samson Score: 15; Trauma Score: 12 MDM: 03:49 Patient medically screened. pk 07:30 Data reviewed: vital signs, nurses notes, radiologic studies, CT scan. 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 Exp: mg2 01/04/2023. Lot #: [id number]. } Route: IM; Site: right deltoid; 07:30 Follow up: Response: No adverse reaction iw Disposition: 02/18/21 07:35 Discharged to Home. Impression: Hematoma forehead. Skin tears both upper extremities. - Condition is Stable. - Medication Reconciliation Form, Thank You Letter, Antibiotic Education, Prescription Opioid Use form. - Follow up: Private Physician; When: Tomorrow; Reason: Re-evaluation by your physician. - Problem is new. - Symptoms have improved. Signatures: Dispatcher [employer] EDNJ Alphonso Andersen MD MD pkl Stephan Youssef, RN RN mg2 Rupali Marrero RN RN ld1 María Elena Velasco RN iw Corrections: (The following items were deleted from the chart) 03:57 03:48 Labs collected and sent ordered. mg2 jb4 03:57 03:49 TYPE AND SCREEN+BB.LAB.BRZ ordered. EDNJ EDMS 03:58 03:49 Basic Metabolic Panel ordered. EDNJ EDMS 03:58 03:49 CBC with Automated Diff ordered. EDNJ EDMS 08:29 03:53 Allergies: PENICILLINS; mg2 ld1 08:37 07:35 02/18/2021 07:35 Discharged to Home. Impression: Hematoma forehead. Skin tears ld1 both upper extremities. Condition is Stable. Forms are Medication Reconciliation Form, Thank You Letter, Antibiotic Education, Prescription Opioid Use. Follow up: Private Physician; When: Tomorrow; Reason: Re-evaluation by your physician. Problem is new. Symptoms have improved. pkl
--- NOTE | 2021-02-18 07:35 | ER ---
Nurse's Notes [facility] Name: Sofie Kinney Age: 70 yrs Sex: Female : 1950 Arrival Date: 02/18/2021 Time: 03:39 Bed 7 Private MD: Diagnosis: Hematoma forehead. Skin tears both upper extremities Presentation: 02/18 03:44 Chief complaint: EMS states: patient had an unwitnessed fall at home 45 mins [employer], she mg2 sustained hematoma in the forehead, lacerations in both arms as well. denies LOC. patient is AOx 3. Care prior to arrival: None. Mechanism of Injury: Fall from standing position. an unknown distance. Trauma event details: Injury occurred in the [facility], Injury occurred: at home. Injury occurred: February 18, 2021 Injury occurred at: 03:00. 03:44 Acuity: ROBERT 2 [facility] [place] 03:44 Method Of Arrival: EMS: [facility] [place] 03:52 Coronavirus screen: Client denies travel out of the [place] in the last 14 days. At this mg2 time, the client does not indicate any symptoms associated with coronavirus-19. Ebola Screen: No symptoms or risks identified at this time. Initial Sepsis Screen: Does the patient meet any 2 criteria? No. Patient's initial sepsis screen is negative. Does the patient have a suspected source of infection? No. Patient's initial sepsis screen is negative. Risk Assessment: Do you want to hurt yourself or someone else? Patient reports no desire to harm self or others. 06:42 Onset of symptoms was February 18, 2021. mg2 Trauma Activation: Alert Physician: ED Physician; Name: ; Notified At: ; Arrived At: Physician: General Surgeon; Name: ; Notified At: ; Arrived At: Physician: Radiology; Name: ; Notified At: ; Arrived At: Physician: Respiratory; Name: ; Notified At: ; Arrived At: Physician: Lab; Name: ; Notified At: ; Arrived At: Historical: - Allergies: 07:40 PENICILLINS; ld1 - PMHx: 03:53 Anemia; Cirrhosis; Diabetes - NIDDM; Hypertension; Thyroid problem; mg2 - Immunization history: Last tetanus immunization: unknown. - Social history:: Smoking status: unknown Smoking status: Patient denies any tobacco usage or history of. Screenin:51 Abuse screen: Denies threats or abuse. Denies injuries from another. Nutritional mg2 screening: No deficits noted. Tuberculosis screening: No symptoms or risk factors identified. Fall risk At risk due to injury, age, prior history of falls. 03:53 Fall Risk Fall in past 12 months (25 points). IV access (20 points). mg2 07:40 Abuse screen: Denies threats or abuse. Denies injuries from another. Nutritional ld1 screening: No deficits noted. Tuberculosis screening: No symptoms or risk factors identified. Fall Risk Fall in past 12 months (25 points). IV access (20 points). Total Juarez Fall Scale indicates High Risk Score (45 or more points). Primary Survey: 03:50 NO uncontrolled hemorrhage observed. A: The patient is alert. Airway: patent. mg2 Breathing/Chest: Respiratory pattern: regular, Respiratory effort: spontaneous, unlabored. Circulation: Skin color:. Disability Alert. Exposure/Environment: All clothing and personal items were removed. Forensic evidence collection is not deemed to be indicated at this time. Items placed in patient belonging bag. There is no evidence of uncontrolled external bleeding. Obvious injury(ies) are noted at this time: lacerations in both arms and hematoma in the forehead. 03:53 Reassessment Breathing/Chest. mg2 Secondary Survey: 03:50 HEENT: Face Other forehead is swollen/hematoma. Gastrointestinal: No deficits noted. mg2 : No deficits noted. Musculoskeletal: Circulation, motion, and sensation intact. Capillary refill < 3 seconds. Assessment: 03:47 General: Appears in no apparent distress. comfortable, Behavior is calm, cooperative. mg2 Pain: Complains of pain in face, right arm and left arm. Neuro: Level of Consciousness is awake, alert, obeys commands, Oriented to person, place, time, situation. 03:49 EENT: No deficits noted. Cardiovascular: Capillary refill < 3 seconds Patient's skin is mg2 warm and dry. Respiratory: Airway is patent Respiratory effort is even, unlabored, Respiratory pattern is regular, symmetrical. GI: No signs and/or symptoms were reported involving the gastrointestinal system. : No signs and/or symptoms were reported regarding the genitourinary system. Derm: Skin is pink, warm \T\ dry. Wound noted right hand and left arm Bruising that is dark purple, on forehead. Musculoskeletal: Circulation, motion, and sensation intact. Capillary refill < 3 seconds. 03:56 Injury Description: skin tears noted to the right wrist, left AC, and left first and jb4 second knuckle. 06:45 Reassessment: Colleen ( daughter) informed about the plan. [phone]. mg2 07:40 General: Appears in no apparent distress. comfortable, Behavior is calm, cooperative, ld1 appropriate for age. 07:40 Pain: Denies pain. Neuro: Level of Consciousness is awake, alert, obeys commands, ld1 Oriented to person, place, time, situation. Cardiovascular: Capillary refill < 3 seconds Patient's skin is warm and dry. Respiratory: Airway is patent Respiratory effort is even, unlabored, Respiratory pattern is regular, symmetrical. GI: No signs and/or symptoms were reported involving the gastrointestinal system. : No signs and/or symptoms were reported regarding the genitourinary system. EENT: No deficits noted. Derm: Skin is pink, warm \T\ dry. Derm: Skin is pink, warm \T\ dry. Wound noted face, right hand, right arm and left arm Bruising that is dark purple, on face, right hand, right arm and left arm. Musculoskeletal: Circulation, motion, and sensation intact. Capillary refill < 3 seconds. Injury Description:. Vital Signs: 03:51 BP 105 / 40; Pulse 61; Resp 18; Temp 98; Pulse Ox 99% on R/A; Weight 133.81 kg; Height mg2 5 ft. 3 in. (160.02 cm); 03:51 Body Mass Index 52.26 (133.81 kg, 160.02 cm) mg2 Samson Coma Score: 03:51 Eye Response: spontaneous(4). Verbal Response: oriented(5). Motor Response: obeys mg2 commands(6). Total: 15. Trauma Score (Adult): 03:51 Eye Response: spontaneous(1); Verbal Response: oriented(1); Motor Response: obeys mg2 commands(2); Systolic BP: > 89 mm Hg(4); Respiratory Rate: 10 to 29 per min(4); [place] Score: 15; Trauma Score: 12 ED Course: 03:39 Patient arrived in ED. mw2 03:44 Stephan Youssef, RN is Primary Nurse. mg2 03:47 Triage completed. mg2 03:49 Alphonso Andersen MD is Attending Physician. pkl 03:52 Patient has correct armband on for positive identification. mg2 03:52 Arm band placed on. mg2 03:52 Patient maintains SpO2 saturation greater than 95% on room air. mg2 03:52 No provider procedures requiring assistance completed. mg2 03:53 Thermoregulation: warm blanket given to patient. mg2 04:40 CT Head Brain wo Cont In Process Unspecified. EDMS 04:40 CT Facial Bones W/O Con In Process Unspecified. EDMS 07:06 Primary Nurse role handed off by Stephan Youssef, SHARRI bd 07:40 Patient has correct armband on for positive identification. Bed in low position. Call ld1 light in reach. Side rails up X 1. 07:40 No provider procedures requiring assistance completed. Patient maintains SpO2 ld1 saturation greater than 95% on room air. 07:49 María Elena Velasco, RN is Primary Nurse. iw 08:32 IV discontinued, intact, bleeding controlled. ld1 Administered Medications: 06:56 Drug: Tetanus-Diphtheria Toxoid Adult 0.5 ml {Media Director: [employer]. Exp: mg2 01/04/2023. Lot #: [id number]. } Route: IM; Site: right deltoid; 07:30 Follow up: Response: No adverse reaction iw Intake: 03:51 PO: 0ml; Total: 0ml. mg2 Outcome: 07:35 Discharge ordered by . pkl 08:31 Discharged to home via wheelchair. ld1 08:31 Condition: stable 08:31 Discharge instructions given to patient, family, Instructed on discharge instructions. 08:35 Patient's length of stay in the Emergency Department was greater than 2 hours. ld1 08:37 Patient left the ED. ld1 Signatures: Dispatcher [employer] EDRI RodolfoWendi mckeon Alphonso Goodman MD MD pkl María Elena Velasco RN RN iw Gregor Santos RN RN jb4 Karen Agee 2 Stephan Youssef RN RN mg2 Rupali Marrero RN RN ld1 Corrections: (The following items were deleted from the chart) 03:49 03:47 Neuro: Level of Consciousness is awake, alert, obeys commands, Oriented to mg2 person, place, time, situation, mg2 08:29 03:53 Allergies: PENICILLINS; mg2 ld1
[2021-02-18 08:54] VITALS: BP 105/40; TEMP 98; O2SAT 99
--- NOTE | 2021-02-18 13:35 | RAD REPORT ---
EXAM DESCRIPTION: CT - Head Brain Wo Cont - 02/18/2021 6:28 am CLINICAL HISTORY: 70 years Female fall, hematoma forehead TECHNIQUE: Noncontrast CT head and face with coronal and sagittal reformats. All CT scans at this [facility] use dose modulation, iterative reconstruction, and/or weight based dosing when appropriate to reduce radiation dose to as low as reasonably achievable. COMPARISON: None. FINDINGS: HEAD: Brain: Parenchymal volume loss. No intracranial hemorrhage, midline shift, mass or mass effect. No ob vious large acute territorial infarction. Ventricles: No hydrocephalus. Mastoid: clear. Osseous: Unremarkable. Soft tissues: Right frontal scalp soft tissue swelling with a 4.6 x 3.6 cm hematoma. FACE: Orbit: Unremarkable. Sinus: Clear. Mastoid: Clear. Osseous: No acute fracture. Soft tissues: Unremarkable. IMPRESSION: 1. No acute intracranial findings. 2. Right frontal scalp soft tissue swelling with a 4.6 cm hematoma. 3. No acute calvarial or facial fracture. Electronically signed by: Chino Verde MD 02/18/2021 4:51 AM CDT Due to temporary technical issues with the PACS/Fluency reporting system, reports are being signed by the in house radiologist without review as a courtesy to ensure prompt reporting. The interpreting r adiologist is fully responsible for the content of the report.
--- NOTE | 2021-02-18 13:36 | RAD REPORT ---
EXAM DESCRIPTION: CT - Facial Bones W/ Mpr - 02/18/2021 6:28 am CLINICAL HISTORY: 70 years Female fall, hematoma forehead TECHNIQUE: Noncontrast CT head and face with coronal and sagittal reformats. All CT scans at this [facility] use dose modulation, iterative reconstruction, and/or weight based dosing when appropriate to reduce radiation dose to as low as reasonably achievable. COMPARISON: None. FINDINGS: HEAD: Brain: Parenchymal volume loss. No intracranial hemorrhage, midline shift, mass or mass effect. No ob vious large acute territorial infarction. Ventricles: No hydrocephalus. Mastoid: clear. Osseous: Unremarkable. Soft tissues: Right frontal scalp soft tissue swelling with a 4.6 x 3.6 cm hematoma. FACE: Orbit: Unremarkable. Sinus: Clear. Mastoid: Clear. Osseous: No acute fracture. Soft tissues: Unremarkable. IMPRESSION: 1. No acute intracranial findings. 2. Right frontal scalp soft tissue swelling with a 4.6 cm hematoma. 3. No acute calvarial or facial fracture. Electronically signed by: Chino Verde MD 02/18/2021 4:51 AM CDT Due to temporary technical issues with the PACS/Fluency reporting system, reports are being signed by the in house radiologist without review as a courtesy to ensure prompt reporting. The interpreting r adiologist is fully responsible for the content of the report.
== END 2021-02-18 08:37 | disposition home or self-care (01) ==
LOC: ER 03:37
DX: S41.112A Laceration without foreign body of left upper arm, initial encounter (principal); S41.111A Laceration without foreign body of right upper arm, initial encounter; W19.XXXA Unspecified fall, initial encounter; Y93.9 Activity, unspecified; Y92.009 Unspecified place in unspecified non-institutional (private) residence as the place of occurrence of the external cause; Z23 Encounter for immunization; Z88.0 Allergy status to penicillin; I10 Essential (primary) hypertension
CPT/HCPCS: 70450; 70486; 76377; 90471; 90714; 99284; G0390